=== PATIENT | male | born 1945 | race Caucasian/White ===

== ENCOUNTER → 2017-09-12 09:56 | Outpatient (CLI) | payer BC, SELFPAY ==
[2017-09-12 10:22] LABS: Absolute Basophil Count 0.09 k/cumm (0.0-0.2); Absolute Eosinophil Count 0.12 k/cumm (0.0-0.7); Absolute Lymphocyte Count 1.03 k/cumm (1.2-3.4); Absolute Monocyte Count 0.66 k/cumm (0.11-0.7); Absolute Neutrophil Count 2.59 k/cumm (1.2-6.7); Eosinophils % 2.7; HCT 40.8 % (40.0-50.0); HGB 12.7 g/dL (13.5-17.5); Lymphocytes % 22.9; Mean Corp. HGB Concentration 31.1 g/dL (32.0-36.0); Mean Corpuscular Hemoglobin 23.7 pg (27.0-33.0); Mean Corpuscular Volume 76.3 fL (80-95); Mean Platelet Volume 11.1 fL (8.0-11.0); Monocytes % 14.7; Neutrophils % 57.7; Platelet Count 230 x1000/uL (130-400); RBC 5.35 m/cumm (4.50-6.00); RBC Distribution Width 18.5 % (11.8-14.1); White Blood Cell Count 4.49 k/cumm (4.4-10.8)
[2017-09-12 10:23] LABS: Bilirubin Negative (Negative); Blood Negative (Negative); Clarity Clear; Glucose Negative (Negative); Ketones Negative (Negative); Leukocyte Esterase Negative (Negative); Nitrite Negative (Negative); Specific Gravity 1.015 (1.005-1.025); Urobilinogen 0.2 EU/dL (Up TO 0.2)
[2017-09-12 11:20] LABS: ALT 34 U/L (12-78); AST 24 U/L (15-37); Albumin 3.9 g/dL (3.4-5.0); Alkaline Phosphatase 113 U/L (46-116); Anion Gap 10.8 mmol/L (3-11); BUN 10 mg/dL (7-18); Bilirubin, Total 0.5 mg/dL (0.2-1.0); CO2 24.2 mmol/L (21.0-32.0); Calcium 9.6 mg/dL (8.5-10.1); Chloride 104 mmol/L (98-107); Glucose 113 mg/dL (70-100); Potassium 4.4 mmol/L (3.5-5.1); Sodium 139 mmol/L (136-145)
[2017-09-13 09:16] LABS: PSA, Screening 1.6 ng/ml (0-6.5)
== END ==
PROVIDERS: PCP Family Medicine; Visit Provider Family Medicine
DX: R10.30 Lower abdominal pain, unspecified (principal)
CPT/HCPCS: 36415; 80053; 84153; 81003; 85025

== ENCOUNTER → 2017-09-19 01:42 | Outpatient (CLI) | payer BC, SELFPAY ==
--- NOTE | 2017-09-19 08:51 | DI.RPTCT_ITS ---
SYMPTOM/DIAGNOSIS: LOWER ABD PAIN R10.30 CT ABDOMEN AND PELVIS: The study was carried out with intravenous injection of 100 cc Omnipaque 350 and oral ingestion of dilute Omnipaque. A small region of scarring is noted involving the left upper lobe. The lung bases are otherwise unremarkable. The liver and gallbladder are unremarkable. The pancreas is normal. The spleen is normal. The kidneys and adrenals are unremarkable. There is a sizable posterior upper body diverticulum of the stomach which was noted on a previous examination. A small axial hiatus hernia was identified. There is no evidence of obstruction. There is nothing specific to suggest an acute appendix. There are scattered diverticula involving the descending and sigmoid segments of the colon. There is nothing to suggest diverticulitis. The bladder is normal as visualized. The reproductive organs are intact. There are small bilateral fat containing inguinal hernias. Also a small fat containing umbilical hernia is identified. There is no evidence of free air or free fluid in the intraperitoneal space. There are atherosclerotic changes involving the aorta without evidence of an aneurysm. Degenerative changes involving the spine are identified. SUMMARY: When compared with previous images again noted is a small gastric diverticulum and small hiatus hernia. There is diverticulosis without evidence of diverticulitis and no evidence of an acute appendix.
[2017-09-19] MEDS: Breeza Beverage 473 ML BTL PO ×2 (09:00→09:01)
[2017-09-19] MEDS: Omnipaque 350 MG/ML 50 ML BTL PO (09:01)
[2017-09-19] MEDS: Omnipaque 350 MG/ML 100 ML BTL IJ (09:15)
== END ==
PROVIDERS: PCP Family Medicine; Visit Provider Family Medicine
DX: R10.30 Lower abdominal pain, unspecified (principal); K31.4 Gastric diverticulum; K44.9 Diaphragmatic hernia without obstruction or gangrene; K40.90 Unilateral inguinal hernia, without obstruction or gangrene, not specified as recurrent; K42.9 Umbilical hernia without obstruction or gangrene; K57.30 Diverticulosis of large intestine without perforation or abscess without bleeding
CPT/HCPCS: 74177; J3490; Q9967

== ENCOUNTER 2018-12-31 11:30 | Outpatient (CLI) | payer BC, SELFPAY ==
--- NOTE | 2018-12-31 11:21 | DI.RAD_ITS ---
EXAM: XR CHEST 2V PA LATERAL INDICATION: SHORT OF BREATH R06.02. COMPARISON: CHEST 2 VIEWS PA,LAT from 04/08/2017 TECHNIQUE: 2D digital imaging was performed. FINDINGS: The heart size is at the upper limits of normal. The aorta is tortuous. There is minimal linear sc arring at the left lung base. No infiltrate, effusion or pulmonary edema is seen. IMPRESSION: No acute abnormality.
[2018-12-31 11:35] LABS: Abs Immature Grans 0.01 k/cumm (0.0-0.09); Absolute Basophil Count 0.07 k/cumm (0.0-0.2); Absolute Eosinophil Count 0.13 k/cumm (0.0-0.7); Absolute Lymphocyte Count 0.76 k/cumm (1.2-3.4); Absolute Monocyte Count 0.66 k/cumm (0.11-0.7); Absolute Neutrophil Count 3.03 k/cumm (1.2-6.7); Basophils % 1.5; Eosinophils % 2.8; HCT 47.6 % (40.0-50.0); Immature Grans % 0.2; Lymphocytes % 16.3; Mean Corp. HGB Concentration 33.6 g/dL (32.0-36.0); Mean Corpuscular Hemoglobin 29.5 pg (27.0-33.0); Mean Corpuscular Volume 87.8 fL (80-95); Monocytes % 14.2; Platelet Count 215 x1000/uL (130-400); RBC 5.42 m/cumm (4.50-6.00); RBC Distribution Width 14.4 % (11.8-14.1); White Blood Cell Count 4.66 k/cumm (4.4-10.8)
[2018-12-31 12:37] LABS: ESR 5 mm/hr (1-20)
[2018-12-31 12:48] LABS: Iron 94 ug/dL (65-175); Total Iron Binding Capacity 423 ug/dL (250-450); Transferrin Sat 22 % (20-55)
[2018-12-31 12:57] LABS: ALT 44 U/L (16-63); AST 27 U/L (15-37); Alkaline Phosphatase 108 U/L (46-116); Anion Gap 10.9 mmol/L (3-11); BUN 18 mg/dL (7-18); Bilirubin, Total 0.7 mg/dL (0.2-1.0); CO2 24.1 mmol/L (21.0-32.0); CREATININE 0.91 mg/dL (0.70-1.30); Calcium 10.1 mg/dL (8.5-10.1); Chloride 104 mmol/L (98-107); Ferritin 30 ng/mL (26-388); Glucose 102 mg/dL (74-106); Potassium 4.3 mmol/L (3.5-5.1); Sodium 139 mmol/L (136-145); Total Protein 7.3 g/dL (6.4-8.2)
== END 2018-12-31 11:50 ==
PROVIDERS: PCP Family Medicine; Visit Provider Family Medicine
DX: R06.02 Shortness of breath (principal); E78.5 Hyperlipidemia, unspecified; K62.5 Hemorrhage of anus and rectum; J98.4 Other disorders of lung
CPT/HCPCS: 36415; 80053; 85652; 71046; 82728; 83540; 83550; 85025

== ENCOUNTER 2019-04-13 13:19 | Outpatient (CLI) | payer BC, SELFPAY ==
--- NOTE | 2019-04-13 12:30 | DI.RAD_ITS ---
EXAM: XR SHOULDER RT COMPLETE 2+V INDICATION: right shoulder pain and reduced function M25.511 PAIN RT SHOULDER. COMPARISON: No exams were available for comparison TECHNIQUE: 2D digital imaging was performed. FINDINGS: There is prominent spurring at the AC joint and undersurface of the acromion. There is also spurring at the glenoid, greater and lesser tuberosities. The humeral head appears superiorly positioned, co nsistent with a chronic rotator cuff tear. IMPRESSION: Degenerative changes and chronic rotator cuff tear. DATA REPOSITORY: RADIATION DOSE DELIVERED:
== END 2019-04-13 13:39 ==
PROVIDERS: PCP Family Medicine
DX: M25.511 Pain in right shoulder (principal); M25.811 Other specified joint disorders, right shoulder; M19.011 Primary osteoarthritis, right shoulder; M75.101 Unspecified rotator cuff tear or rupture of right shoulder, not specified as traumatic
CPT/HCPCS: 73030

== ENCOUNTER 2019-06-29 13:10 | Day surgery (SDC) | payer BC, SELFPAY ==
[2019-06-29 13:20] VITALS: BP 159/96; PULSE 84; RESP 18; TEMP 36.8; O2SAT 95
[2019-06-29] MEDS: Lactated Ringers 1,000 ML 80 ML IV (14:10)
[2019-06-29] MEDS: ceFAZolin 2 GM/50 ML BAG IVPB (14:40)
--- NOTE | 2019-06-29 16:21 | W.PM.OP ---
Date of service: 06/29/19 Time of Service: 16:21 Operative Note Operative Note DATE OF PROCEDURE: 06/29/19 PRE-OP DIAGNOSIS: incarcerated umbilical hernia POST-OP DIAGNOSIS: other and strangulated PROCEDURE: opeb repair w/ mesh and excision of omentum and sack. SURGEON: Fe Manning ANESTHESIA: MAC, local and spinal ESTIMATED BLOOD LOSS: 10 PATHOLOGY: none sent COMPLICATIONS: None Patient was transported to: same day Patient's condition: stable Implants: see RN notes Procedure Description: Pt presented to surgical clinic today adn was seen by Dr. Hdz. He has an acute incarcerated umbilical hernia and is here today for repair. Informed consent was obtained, explaining risks and benefits of the procedure including but not limited to bleeding, infection, pneumonia, blood clots, recurrence, chronic pain, chronic numbness, reaction to mesh necessitating removal, complications of anesthesia and other unforetold complications. DESCRIPTION OF PROCEDURE: The patient was brought to the operating suite and placed in supine position. Anesthesia was administered per the Department of Anesthesia. Patient prepped and draped in the usual sterile fashion using DuraPrep scrub solution. IV antibiotics were administered. Pause for the cause was done. A 2-inch incision was made in the interiorly to the umbilicus. Umbilicus was dissected off the fascia. The fascia was dissected off from surrounding tissue. There is omentum protruding through the sack. It appears to be necrotic. The sac is opened and the the omentum released. THe sac adn omentum are explored. There is no bowel. The sac and and infarcted omentum are excised using a ligasure. The omentum shows no bleeding and is healthy, and returned to the abdomen. The subcutaneous tissue is cleared from the fascial edges. A large ventrilux patch was then placed in the defect, the defect was closed, over sewn with 2-0 vicyrl and was copiously irrigated. Deep tissue was approximated with 3-0 Vicryl and skin was approximated with agapito, and a sterile dressings are applied. The patient tolerated the procedure well without complications and was transferred to recovery room in stable condition. FE MANNING,
[2019-06-29 16:25] VITALS: BP 133/73; PULSE 61; RESP 18; TEMP 36.1; O2SAT 94
--- NOTE | 2019-06-29 16:25 | W.PM.DSUDISC ---
Discharge Plan Disposition Patient Disposition: HOME Condition: Good Discharge Details Reason For Visit: incarcerated strangulated umbilical hernia Attending Provider: Fe Estrada Primary Care Provider: Parish Ferrer Home Meds and New Rx's Prescriptions: New cephalexin 500 mg tablet 500 mg PO BID 3 Days Qty: 6 RF: 0 hydrocodone-acetaminophen 5-325 mg tablet 1 tab PO Q4H PRNQty: 10 RF: 0 Continued atorvastatin 10 mg tablet 10 mg PO DAILY Qty: 90 RF: 3 esomeprazole magnesium [Nexium] 20 mg Capsule,Delayed Release(Dr/Ec) 1 mg PO DAILY RF: 0 Discontinued albuterol sulfate [Ventolin HFA] 90 mcg/actuation HFA aerosol inhaler 2 puff IH Q6H PRN (Reason: shortness of breath or wheezing) Qty: 8.5 RF: 1 aspirin [Ecotrin Low Strength] 81 MG tablet,delayed release (DR/EC) 81 mg PO DAILY RF: 0 omeprazole [Prilosec] 20 MG capsule,delayed release(DR/EC) 20 mg PO QAM RF: 0 No Action (DME) Aerochamber MV Spacer See Rx Instructions .ROUTE .MEDSUPPLY Qty: 1 RF: 0 Discharge Instructions Additional Instructions: HERNIA REPAIR ? POSTOPERATIVE INSTRUCTIONS Patients who have this type of surgery can usually be expected to return to work within two weeks and have minimal amounts of discomfort. ? ACTIVITY: The day of surgery should be spent resting. However, you can be up for short periods of time, I.E., going to the bathroom or kitchen. Avoid lifting or straining. On the day following surgery, you can be up and about as desired. ? LIFTING: Restrict your lifting to no more than five (5) pounds for two weeks. ? DIET: There are no dietary restrictions following surgery. However, you may want to start with small amounts of liquids to avoid nausea the day of surgery. ? INCISION CARE: After 24 hours you may shower. The dressing may be replaced for comfort, but is not necessary. An ice bag may be applied to the incision for 72 hours following surgery. ? SIGNS OF INFECTION: It will slowly disappear. If you have any increased redness, drainage, fever (above 100 degrees), please contact your doctor for an examination. ? DISCOMFORT: You may expect to have some mild discomfort at the incision sight. If severe pain develops you should contact your doctor for further instructions. ? URINATION: Patients who have surgery occasionally have problems urinating. If you experience problems and are not able to urinate within 6 hours following your surgery, please call your doctor immediately or go to your nearest Emergency Room for evaluation. ? DRIVING: NO driving for five (5) days after surgery ? MEDICATIONS: Alternate Tylenol 1000mg by mouth every 8hours and Ibuprofen 600mg every 6hours. Take the Tylenol and ibuprofen continuously for the first 72hrs- not just when you have pain. Use the tramadol for breakthrough pain. Use ice 20 minutes off/on continuously for the first 72hours. If you are taking narcotic pain medication, follow the instructions on the label and do not drive. Pain medications can make you very constipated. Make sure you are moving your bowels daily. If not, take Miralax, milk of magnesia or magnesium citrate. ? REPORT: Unusual swelling, severe pain, unresolved nausea, signs of infection, or difficulty in urination to your surgeon. Follow up in clinic with Dr. Estrada in 1-2 weeks [phone] Activity:: up walking today. no lifting over 5#'s x2 wks Remove Dressings/Wound Care:: 24 hours Shower/Bathe:: 24 hours Diet:: As Tolerated Discharge Orders Discharge Orders: Discharge Order (Routine); Ordered 06/29/19 Ordered By: Fe Estrada DS: Diagnosis Discharge Diagnosis (1) Strangulated umbilical hernia: Status: Acute (2) Incarcerated umbilical hernia: Status: Acute
--- NOTE | 2019-06-29 16:50 | W.PM.PROGNOT ---
Date of Service Date of service: 06/29/19 Time of Service: 16:51 Assessment and Plan Assessment and plan (1) Strangulated umbilical hernia: Status: Acute Assessment and plan: The patient is doing well post-op. There pain is well controlled. They are having no nausea or vomiting. The pt is not having any chest pain or SOB, productive cough; no calf pain or swelling. The pt is making good urine. The pt pain is adequately controlled. The case was discussed with nursing and pateints progress reviewed. pt wants to go home today HEENT: no janudice. no eye pain/drainage/redness/swelling. mild sore throat cardio- NSR no chest pain, BP stable. pulm: no sob or productive cough. no hemoptysis insicion- clean/dry. dressing intact no excessive bleeding or drainage I discussed with the patient and/or there family about the findings in surgery and the pt's progress. We reviewed expectations for progress in the hospital; what the pt could expect for recovery time. We discussed the importance of walking and pulmonary toilet to avoid blood clots and pneumonia. Continue current plans for pulmonary toilet, GI and DVT prophalxis. We shall continue the current plan for pain management as it is at an appropriate level and working well for the pt. Appropriate measures will be taken for constipation prevention as well, and this was also reviewed with the pt. wound care plan was reviewed with nursing as well. pt will be going home today and F/u next Saturday- see orders rx norco and keflex (2) Incarcerated umbilical hernia: Status: Acute Objective Objective Clinical Data: Vital Signs Temperature 36.1 C L 06/29/19 16:25 Pulse 61 06/29/19 16:25 Pulse Rhythm Regular 06/29/19 13:20 Respiratory Rate 18 06/29/19 16:25 Respiratory Depth Normal 06/29/19 13:20 Blood Pressure 133/73 06/29/19 16:25 Pulse Oximetry 94 L 06/29/19 16:25 Oxygen Delivery Method Room Air 06/29/19 16:25 Oxygen Flow Rate 0 06/29/19 13:20 Pain Level 2 06/29/19 16:25 Intake & Output 06/28/19 06/29/19 06/29/19 23:59 11:59 23:59 Intake Total 790 / 790 Balance 790 / 790 Weight 129.4 kg Intake: IV 550 / 550 Oral 240 / 240 Other: Emesis Description None
[2019-06-29 17:30] VITALS: BP 130/76; PULSE 64; RESP 18; TEMP 36.2; O2SAT 94
== END 2019-06-29 17:49 | disposition home or self-care (01) ==
PROVIDERS: PCP Family Medicine; Visit Provider Surgery
PROC: (CPT 49587; principal; 2019-06-29 14:00)
DX: K42.1 Umbilical hernia with gangrene (principal)
CPT/HCPCS: 49587; NC; C1781; J0131; J0690; J1100; J1885; J2001; J2405

== ENCOUNTER 2019-06-29 15:35 | Outpatient (REF) | payer BC, SELFPAY ==
[2019-06-30 17:51] LABS: COVID-19 RT-PCR Result NEGATIVE (Negative)
== END 2019-06-29 15:55 ==
LOC: LBN 15:35
PROVIDERS: PCP Family Medicine; Visit Provider Surgery
DX: Z01.818 Encounter for other preprocedural examination (principal); Z11.59 Encounter for screening for other viral diseases
CPT/HCPCS: U0003

== ENCOUNTER 2019-07-15 11:59 | Outpatient (CLI) | payer BC, SELFPAY ==
--- NOTE | 2019-07-15 11:15 | DI.RAD_ITS ---
EXAM: XR CHEST 2V PA LATERAL CLINICAL HISTORY: s/p hernia sx. wheezing and sob. recent penumoni, J40 BRONCHITIS TECHNIQUE: COMPARISON: CT ABD PELVIS WITH CONTRAST from 09/19/2017 CR XR CHEST 2V PA LATERAL from 12/31/2018 FINDINGS: Examination is compared with previous examination of 12/31/2018. There is new marked elevation of th e diaphragm on the right. Cardiac size appears within normal limits. There are apparent areas of at electasis at the right lung base. No pleural effusion seen. There is a rounded radiodensity project ed in the right hilum which may represent distorted vascular structure due to the marked volume loss of right lung. Mass not entirely excluded. CT of the chest may be considered for further evaluation . IMPRESSION: New marked right diaphragmatic elevation. Additional evaluation with chest CT should be considered.
== END 2019-07-15 12:19 ==
PROVIDERS: PCP Family Medicine; Visit Provider Surgery
DX: R06.2 Wheezing (principal); R06.02 Shortness of breath; J40 Bronchitis, not specified as acute or chronic; J98.11 Atelectasis; J98.6 Disorders of diaphragm
CPT/HCPCS: 71046

== ENCOUNTER 2019-07-16 10:48 | Emergency (ER) | payer BC, SELFPAY ==
[2019-07-16] VITALS (38 sets, daily range): BP systolic 127–166; BP diastolic 76–110; PULSE 74–139; RESP 13–34; TEMP 36.2; O2SAT 91–97
--- NOTE | 2019-07-16 10:53 | ED.GENADUL_ITS ---
Discharge Plan Disposition Patient Disposition: HOME Condition: Good Discharge Details Chief Complaint: Chest Pain Clinical Impression: Tachycardia, Cough, Atypical chest pain, Surgical site infection Primary Care Provider: Parish Ferrer ED Provider: Rena Beth Home Meds and New Rx's Prescriptions: New cephalexin [Keflex] 500 mg capsule 500 mg PO QID 7 Days Qty: 28 RF: 0 Continued aspirin 81 mg tablet,delayed release (DR/EC) 81 mg PO DAILY RF: 0 sennosides [senna] 8.6 mg tablet 8.6 mg PO BID Qty: 60 RF: 0 atorvastatin 10 mg tablet 10 mg PO DAILY Qty: 90 RF: 3 (DME) Aerochamber MV Spacer See Rx Instructions .ROUTE .MEDSUPPLY Qty: 1 RF: 0 esomeprazole magnesium [Nexium] 20 mg Capsule,Delayed Release(Dr/Ec) 1 mg PO DAILY RF: 0 Discharge Instructions Instructions: Chest Pain (ED), Cellulitis (ED), Acute Cough (ED) Additional Instructions: Drink plenty of fluids and get plenty of rest. Alternate tylenol and motrin as needed and directed for pain. Take the antibiotics until finished. You will be notified of your COVID-19 testing result once available. Call your primary care doctor's office today to schedule a follow-up appointment within the next week. You have been scheduled for a follow-up appointment at the surgery office on July 21 at 2 PM. Return to the emergency department with any worsening or new concerning sympt oms. Stand Alone Forms: PENDING COVID-19 TESTING Discharge Data Discharge Date/Time-TO BE ENTERED AT DEPARTURE: 07/16/19 15:40 Discharge Physician: Rena Beth Medical Decision Making 1050 -- 74-year-old male with a history of hypertension, hyperlipidemia, alcohol abuse who is 2 weeks status post incarcerated umbilical hernia repair presents for chest tightness, cough and wheezing since yesterday. Heart rate 130s at surgery office for follow-up today. Outpatient chest x-ray noted right elevated hemidiaphragm yesterday and recommended CT chest. He had a negative COVID test just prior to surgery 2 weeks ago. Heart rate 130s on arrival. EKG noted a rate of 136, sinus tach, right bundle branch block, no other acute ischemic change compared to previous EKG. Patient appears nontoxic. Speaking in full sentences. He has diminished breath sounds right mid to lower lung johnson but no obvious wheezing, rales or rhonchi. Afebrile. Oxygen saturation mid 90s on room air. No abdominal tenderness. Incision site indurated with minimal erythema but nontender. Differential diagnosis includes PE, pneumonia, paralysis of diaphragm causing hypoventilation, ACS, dehydration. Will check screening labs, CT chest, lactate and blood cultures and place on 1 L nasal cannula. 1310 -- labs and imaging reviewed. Normal white blood cell count and lactate. Slight elevation in liver enzymes likely consistent with daily alcohol abuse. Lipase normal. Alcohol level 4. CT chest negative for any acute process. Case discussed with surgery who would like CT abdomen and pelvis to assess for abscess. Patient reassessed -rate remains 120s to 130s. He denies any acute complaints. Unclear if there is an underlying arrhythmia such as atrial flutter. Repeat EKG noted a heart rate 132, sinus tach with no acute ischemic change. 1500 --CT abdomen and pelvis notes and intra-abdominal wall fluid collection but no other acute findings. Surgery evaluated patient at bedside and would like Keflex for possible mild incision site cellulitis. Heart rate decreased to 70s. Repeat troponin negative. Repeat EKG with a rate of 81 and no other acute change. Oxygen saturation high 90s on room air. Patient reassessed - Patient states he wants to leave as soon as possible as he feels much better and would rather be home. He denies any chest pain. Discussed with patient that as he has been developing a cough with chest tightness and subjective wheezing, he may be developing a viral illness but as there was no wheezing noted on exam, do not see an indication for steroids and he is agreeable. He was advised to follow-up with his primary care doctor within the next week for reevaluation. Surgery will follow up with him in the office on July 21 at 2 PM and have requested Keflex for mild surgical site infection. Usual and customary return precautions given prior to discharge. Medical Records Medical records reviewed: Yes I reviewed the patient's medical records. Imaging Data Radiologic Study: Radiologist's impression: CT CHEST PE CTA CLINICAL HISTORY: Chest pain recent surgery TECHNIQUE: COMPARISON: CT ABD PELVIS WITH CONTRAST from 09/19/2017 FINDINGS: CT examination was performed with bolus infusion of 88 cc of Omnipaque 350. There is no evidence of pulmonary embolic disease. Thoracic aorta and major branches are unremarkable with no evidence thoracic aortic aneurysm or dissection. Note is made of coronary artery calcification. There is marked elevation of the diaphragm on the right, there is apparent compression atelectasis secondary to the diaphragmatic elevation in right lower lobe. No gross pulmonary mass or consolidation seen. Lungs otherwise are clear. Tracheobronchial tree appears intact. No mediastinal or hilar mass or adenopathy. No supraclavicular or axillary adenopathy. Images obtained through the upper abdomen show grossly unremarkable appearance of visualized portions of liver, spleen, right adrenal and right kidney. Visualized pancreas appears intact. IMPRESSION: Right diaphragmatic elevation, unexplained, with secondary compression atelectasis of right lower pulmonary lobe. No other significant findings. CT ABDOMEN AND PELVIS W CLINICAL HISTORY: R HEMIELEVATED DIAPHRAGM, R/O ABDOMINAL ABSCESS TECHNIQUE: CT examination of the abdomen and pelvis was performed with a bolus infusion of 100 cc of Omnipaque 350 and ingestion of dilute barium. COMPARISON: CT CT CHEST PE CTA from 07/16/2019 FINDINGS: Please also see today's chest CT. There is mild hepatic steatosis. Diaphragmatic elevation again noted on the right, unexplained. Spleen and pancreas are unremarkable in appearance. Adrenals and kidneys appear normal. No urinary tract calcification or obstruction. Abdominal aorta is of normal diameter and major visceral vessels appear intact. No abdominal or pelvic adenopathy. Urinary bladder is unremarkable. No evidence of appendicitis, diverticulitis, or bowel obstruction. Hiatal hernia again noted. Gallbladder and bile ducts are CT normal. The patient has reportedly had recent abdominal wall hernia repair. There is nonspecific fluid collection at the presumed hernia repair site just to the left of midline at the umbilical level measuring about 5 x 2.6 cm in diameter transaxially. This is consistent with postsurgical hematoma or seroma, please correlate clinically. Infectious process not excluded on the basis of this examination. No other fluid collection identified in the abdominal wall or in the peritoneal cavity or retroperitoneum. IMPRESSION: Anterior abdominal wall subcutaneous fluid collection at the level of the umbilicus, presumably postsurgical; no other significant intraabdominal abnormality seen. Lab Data Lab results reviewed: Yes I reviewed the patient's lab results. Labs: 07/16/19 12:00 Blood Blood Culture - Pending 07/16/19 11:30 Blood Blood Culture - Pending Laboratory Tests Range/Units 07/16/19 07/16/19 07/16/19 11:00 11:00 11:00 WBC (4.4-10.8) k/cumm 5.76 RBC (4.50-6.00) m/cumm 5.83 Hgb (13.5-17.5) g/dL 18.3 H Hct (40.0-50.0) % 53.2 H MCV (80-95) fL 91.3 MCH (27.0-33.0) pg 31.4 MCHC (32.0-36.0) g/dL 34.4 RDW (11.8-14.1) % 13.0 Plt Count (130-400) x1000/uL 221 MPV (8.0-11.0) fL 11.4 H Immature Gran % % 0.3 Neutrophils % 64.0 Lymphocytes % 18.2 Monocytes % 14.2 Eosinophils % 2.1 Basophils % 1.2 Absolute Neutrophils (1.2-6.7) k/cumm 3.68 Absolute Lymphocytes (1.2-3.4) k/cumm 1.05 L Absolute Monocytes (0.11-0.7) k/cumm 0.82 H Absolute Eosinophils (0.0-0.7) k/cumm 0.12 Absolute Basophils (0.0-0.2) k/cumm 0.07 Sodium (136-145) mmol/L 137 Potassium (3.5-5.1) mmol/L 4.2 Chloride (98-107) mmol/L 101 Carbon Dioxide (21.0-32.0) mmol/L 28.8 Anion Gap (3-11) mmol/L 7.2 BUN (7-18) mg/dL 14 Creatinine (0.70-1.30) mg/dL 1.05 Estimated GFR/1.73 m2 (mL/min/1.73m2) >= 60.00 Glucose (74-106) mg/dL 119 H Lactate (0.6-1.4) mmol/L Calcium (8.5-10.1) mg/dL 10.6 H Magnesium (1.8-2.4) mg/dL 1.9 Total Bilirubin (0.2-1.0) mg/dL 1.0 AST (15-37) U/L 49 H ALT (16-63) U/L 75 H Alkaline Phosphatase (46-116) U/L 124 H Troponin I (<0.06) ng/mL < 0.05 NT-Pro-B Natriuret Pep (<300) pg/mL 39 Total Protein (6.4-8.2) g/dL 8.3 H Albumin (3.4-5.0) g/dL 4.4 Lipase (73-393) U/L 130 Ethyl Alcohol (<3) mg/dL Range/Units 07/16/19 07/16/19 07/16/19 11:00 11:25 14:55 WBC (4.4-10.8) k/cumm RBC (4.50-6.00) m/cumm Hgb (13.5-17.5) g/dL Hct (40.0-50.0) % MCV (80-95) fL MCH (27.0-33.0) pg MCHC (32.0-36.0) g/dL RDW (11.8-14.1) % Plt Count (130-400) x1000/uL MPV (8.0-11.0) fL Immature Gran % % Neutrophils % Lymphocytes % Monocytes % Eosinophils % Basophils % Absolute Neutrophils (1.2-6.7) k/cumm Absolute Lymphocytes (1.2-3.4) k/cumm Absolute Monocytes (0.11-0.7) k/cumm Absolute Eosinophils (0.0-0.7) k/cumm Absolute Basophils (0.0-0.2) k/cumm Sodium (136-145) mmol/L Potassium (3.5-5.1) mmol/L Chloride (98-107) mmol/L Carbon Dioxide (21.0-32.0) mmol/L Anion Gap (3-11) mmol/L BUN (7-18) mg/dL Creatinine (0.70-1.30) mg/dL Estimated GFR/1.73 m2 (mL/min/1.73m2) Glucose (74-106) mg/dL Lactate (0.6-1.4) mmol/L 1.1 Calcium (8.5-10.1) mg/dL Magnesium (1.8-2.4) mg/dL Total Bilirubin (0.2-1.0) mg/dL AST (15-37) U/L ALT (16-63) U/L Alkaline Phosphatase (46-116) U/L Troponin I (<0.06) ng/mL < 0.05 NT-Pro-B Natriuret Pep (<300) pg/mL Total Protein (6.4-8.2) g/dL Albumin (3.4-5.0) g/dL Lipase (73-393) U/L Ethyl Alcohol (<3) mg/dL 4.0 ECG Data Attestation: I personally reviewed and interpreted this ECG (s) as follows: Interpretation: #1 -- Rate of 136, sinus, right bundle branch block. No acute ST elevation or depression. QTc 545. QRS 168. #2 -- Rate of 132, sinus, right bundle branch block. No acute ST elevation or depression. QTc 542. QRS 166. #3 -- Rate of 81, sinus, right bundle branch block. No acute ST elevation or depression. CT 180. QTc 467. QRS 167. HPI General Mode of arrival: wheelchair . Date/Time Provider Initiated Documentation: 07/16/19 10:48 . Limitations to Documentation: no limitations . Information obtained by: patient . HPI Narrative: Patient is a 74-year-old male with a history of hypertension, hyperlipidemia, GERD, daily alcohol abuse who is 2 weeks status post incarcerated umbilical hernia repair here who presents for chest tightness, dry cough and wheezing since yesterday. Discussed the symptoms at the surgery office yesterday on follow-up and they obtained a chest x-ray which noted a right elevated hemidiaphragm with recommendations for CT chest. Patient was seen at the surgery office today again and noted to have heart rate 130s and complained of chest tightness and was referred to the ER for further evaluation. He denies any fever, change in appetite, vomiting, diarrhea, abdominal pain. He states the chest tightness is minimal and currently 2/10. He states he feels that when he takes a deep breath it triggers a cough and wheezing but otherwise states the cough is minimal and does not have significant shortness of breath. He states he drinks liquor daily and that he had 6 ounces of gin last night. Denies any recent travel or new leg pain or swelling. Related Data Home Medications Medication Instructions Recorded Confirmed atorvastatin 10 mg tablet 10 mg PO DAILY #90 tab 10/22/18 07/16/19 inhalational spacing device #1 each 06/16/19 07/16/19 esomeprazole magnesium [Nexium] 1 mg PO DAILY 06/29/19 07/16/19 aspirin 81 mg tablet,delayed 81 mg PO DAILY 07/08/19 07/16/19 release sennosides 8.6 mg tablet 8.6 mg PO BID #60 tab 07/08/19 07/16/19 cephalexin [Keflex] 500 mg PO QID 7 Days #28 cap 07/16/19 Previous Rx's Medication Instructions Recorded atorvastatin 10 mg tablet 10 mg PO DAILY #90 tab 10/22/18 inhalational spacing device #1 each 06/16/19 sennosides 8.6 mg tablet 8.6 mg PO BID #60 tab 07/08/19 cephalexin [Keflex] 500 mg PO QID 7 Days #28 cap 07/16/19 Allergies Allergy/AdvReac Type Severity Reaction Status Date / Time No Known Allergies Allergy Verified 07/16/19 10:19 Review of Systems All systems reviewed & are unremarkable except as noted in HPI and below Constitutional Constitutional: Reports as per HPI, Denies chills and Denies fever(s) Eyes Eyes: Denies blurry vision ENT Ears, Nose, Mouth, and Throat: Denies dizziness, Denies sore throat and Denies throat swelling Cardiovascular Cardiovascular: Reports chest pain and Reports dyspnea Respiratory Respiratory: Reports cough and Reports dyspnea Gastrointestinal Gastrointestinal: Denies abdominal pain, Denies diarrhea and Denies vomiting Genitourinary Genitourinary: Denies hematuria and Denies dysuria Musculoskeletal Musculoskeletal: Denies back pain and Denies numbness Integumentary/Breasts Skin/Breast: Denies lesions and Denies rash Neurologic Neurologic: Denies dizziness, Denies localized weakness and Denies numbness Allergic/Immunologic Allergic/Immunologic: Denies throat swelling [facility] Medical History (Updated 07/16/19 @ 15:18 by Rena Beth DO) Abnormal finding of diagnostic imaging (Acute) Bronchitis (Acute) pt treated for this w/ abx in june. no imagining done. Elevated diaphragm (Acute) Right shoulder pain (Acute) Strangulated umbilical hernia (Acute) Wheeze (Acute) Surgical History Colonoscopy - [facility] 10/31/10;DR. ARJUN LYNN; MIXED TUBULAR AND SESSILE SERRATED ADENOMA Hemorrhoidectomy Replacement of total knee joint RIGHT Social History Smoking/Tobacco Use Status: Never Alcohol Intake: current Alcohol Intake frequency: 3 or more drinks per day Alcohol type: hard liquor Drug use: Never Substance use type: does not use Current gender identity: male Do you feel safe at home: Yes Do you feel safe in your relationship?: Yes Exam Const General: cooperative and no acute distress Orientation: alert, awake and oriented x3 HENMT Head: normal to inspection Face and sinus: normal facial exam Eyes General: appearance normal, both eyes and all related structures EOM: EOM intact bilaterally Neck Neck: normal visual inspection and No submandibular swelling Lymphatic: no lymphadenopathy noted Chest Chest: normal inspection of the chest and no tenderness Resp Effort & Inspection: normal respiratory effort and able to speak in complete sentences Auscultation: diminished lung sounds on the right in the lower lung johnson, no rhonchi and no wheezes Cardio Rate: regular rate Rhythm: regular rhythm GI Inspection: normal to inspection and incision (inferior to umbilicus. Indurated L side. No erythema, drainage, fluctuance) Palpation: soft, not firm, not rigid and nontender Auscultation: normal bowel sounds Skin General skin exam: no rashes or lesions noted Neuro General: patient alert, patient awake and patient oriented x3 Cognition: normal cognition Speech: speech normal Motor: muscle tone normal throughout Sensory Exam: no sensory deficits noted Extrem General: normal to inspection, full ROM, capillary refill normal, no calf tenderness bilaterally and no edema Psych Appearance: grossly normal Mental Status: mental status grossly normal Speech and Movement: speech and movement normal Affect: normal affect
[2019-07-16] MEDS: Normal Saline 1,000 ML 500 ML IV (11:15)
[2019-07-16 11:27] LABS: Abs Immature Grans 0.02 k/cumm (0.0-0.09); Absolute Basophil Count 0.07 k/cumm (0.0-0.2); Absolute Eosinophil Count 0.12 k/cumm (0.0-0.7); Absolute Lymphocyte Count 1.05 k/cumm (1.2-3.4); Absolute Monocyte Count 0.82 k/cumm (0.11-0.7); Absolute Neutrophil Count 3.68 k/cumm (1.2-6.7); Basophils % 1.2; Eosinophils % 2.1; HCT 53.2 % (40.0-50.0); HGB 18.3 g/dL (13.5-17.5); Immature Grans % 0.3 %; Lymphocytes % 18.2; Mean Corp. HGB Concentration 34.4 g/dL (32.0-36.0); Mean Corpuscular Hemoglobin 31.4 pg (27.0-33.0); Mean Corpuscular Volume 91.3 fL (80-95); Mean Platelet Volume 11.4 fL (8.0-11.0); Monocytes % 14.2; Platelet Count 221 x1000/uL (130-400); RBC 5.83 m/cumm (4.50-6.00); White Blood Cell Count 5.76 k/cumm (4.4-10.8)
[2019-07-16 11:32] LABS: Lactate 1.1 mmol/L (0.6-1.4)
[2019-07-16] MEDS: Normal Saline Flush 10 ML SYR IVP (11:45)
[2019-07-16 11:46] LABS: ALT 75 U/L (16-63); AST 49 U/L (15-37); Albumin 4.4 g/dL (3.4-5.0); Alkaline Phosphatase 124 U/L (46-116); Anion Gap 7.2 mmol/L (3-11); BUN 14 mg/dL (7-18); CO2 28.8 mmol/L (21.0-32.0); CREATININE 1.05 mg/dL (0.70-1.30); Calcium 10.6 mg/dL (8.5-10.1); Chloride 101 mmol/L (98-107); Glucose 119 mg/dL (74-106); Lipase 130 U/L (73-393); Magnesium 1.9 mg/dL (1.8-2.4); Potassium 4.2 mmol/L (3.5-5.1); Sodium 137 mmol/L (136-145); Total Protein 8.3 g/dL (6.4-8.2)
[2019-07-16 11:47] LABS: Troponin I < 0.05 ng/mL (<0.06)
[2019-07-16 11:52] LABS: NT-proBNP 39 pg/mL (<300)
[2019-07-16] MEDS: Normal Saline - Diluent 50 ML VIAL IV (12:13)
[2019-07-16] MEDS: Omnipaque 350 MG/ML 100 ML BTL 88 ML IJ (12:14)
--- NOTE | 2019-07-16 12:30 | DI.CT_ITS ---
EXAM: CT CHEST PE CTA CLINICAL HISTORY: Chest pain recent surgery TECHNIQUE: COMPARISON: CT ABD PELVIS WITH CONTRAST from 09/19/2017 FINDINGS: CT examination was performed with bolus infusion of 88 cc of Omnipaque 350. There is no evidence of pulmonary embolic disease. Thoracic aorta and major branches are unremarkabl e with no evidence thoracic aortic aneurysm or dissection. Note is made of coronary artery calcification. There is marked elevation of the diaphragm on the right, there is apparent compression atelectasis se condary to the diaphragmatic elevation in right lower lobe. No gross pulmonary mass or consolidation seen. Lungs otherwise are clear. Tracheobronchial tree appears intact. No mediastinal or hilar ma ss or adenopathy. No supraclavicular or axillary adenopathy. Images obtained through the upper abdomen show grossly unremarkable appearance of visualized portions of liver, spleen, right adrenal and right kidney. Visualized pancreas appears intact. IMPRESSION: Right diaphragmatic elevation, unexplained, with secondary compression atelectasis of right lower pul monary lobe. No other significant findings.
--- NOTE | 2019-07-16 13:00 | DI.CT_ITS ---
EXAM: CT ABDOMEN AND PELVIS W CLINICAL HISTORY: R HEMIELEVATED DIAPHRAGM, R/O ABDOMINAL ABSCESS TECHNIQUE: CT examination of the abdomen and pelvis was performed with a bolus infusion of 100 cc of Omnipaque 350 and ingestion of dilute barium. COMPARISON: CT CT CHEST PE CTA from 07/16/2019 FINDINGS: Please also see today's chest CT. There is mild hepatic steatosis. Diaphragmatic elevation again noted on the right, unexplained. Spleen and pancreas are unremarkable in appearance. Adrenals and kidneys appear normal. No urinary tract calcification or obstruction. Abdominal aorta is of normal diameter and major visceral vessels appear intact. No abdominal or pelv ic adenopathy. Urinary bladder is unremarkable. No evidence of appendicitis, diverticulitis, or bowel obstruction. Hiatal hernia again noted. Gallbladder and bile ducts are CT normal. The patient has reportedly had recent abdominal wall hernia repair. There is nonspecific fluid colle ction at the presumed hernia repair site just to the left of midline at the umbilical level measuring about 5 x 2.6 cm in diameter transaxially. This is consistent with postsurgical hematoma or seroma, please correlate clinically. Infectious process not excluded on the basis of this examination. No other fluid collection identified in the abdominal wall or in the peritoneal cavity or retroperito neum. IMPRESSION: Anterior abdominal wall subcutaneous fluid collection at the level of the umbilicus, presumably posts urgical; no other significant intraabdominal abnormality seen.
[2019-07-16] MEDS: Breeza Beverage 473 ML BTL PO ×2 (13:17→13:18)
[2019-07-16] MEDS: Omnipaque 350 MG/ML 50 ML BTL PO (13:18)
[2019-07-16] MEDS: Normal Saline 500 ML IV (13:35)
[2019-07-16 15:24] LABS: Troponin I < 0.05 ng/mL (<0.06)
--- NOTE | 2019-07-16 17:14 | SCONE_ITS ---
Date of service: 07/16/19 Time of Service: 17:14 Assessment and Plan Assessment and plan (1) Tachycardia: Status: Acute (2) Elevated diaphragm: Status: Acute (3) Abnormal finding of diagnostic imaging: Status: Acute (4) Bronchitis: Status: Acute (5) Incarcerated umbilical hernia: Status: Acute Assessment and plan: s/p incarcerated umbilical hernia repair. Presented to office today for staple removal and found to be in sinus tach for no reason. Ct's ere nl today. no PE no pneumonia. postOp changes noted on CT. The skin is just the tiniest bit red. I am going to put him on a wks worth of keflex. The tachycardia resolved w/ some fluids. I do not have an explanation for the tachycardia. I will have him f/u next we dnday in clinic, provided his next set of tropnins are nl. further rec per ED. History of Present Illness Narrative: Patient was seen in the clinic office this morning because he found a retained staple and was urged to have it taken out he was there he was noted to be very clammy. He had a mildly elevated BP but he did have a racing heart rate and was tachycardic. His sent to the emergency room for evaluation and an EKG performed which did show a heart rate in the 130s. He had been doing a lot of painting this morning. He had had a previous episode bronchitis versus allergic asthma in the spring and had been on antibiotics prior to his surgery he did have a lot of issues with wheezing and cough. Yesterday on 6 3 he was describing some of those symptoms again. So I did do a chest x-ray. This showed a extremely elevated right hemidiaphragm. I did want to get a CT of the chest abdomen pelvis on him. Insurance company would only pay for a CT of the chest. This was not completed yesterday, as we are waiting insurance approval. CT of the chest and pelvis was done today. There is no PE. There is some postsurgical changes and fluid collection that is side of the umbilical hernia repair. He did have mesh placed. Otherwise CT is unremarked couple except only for retained stool. I did see and evaluate the patient done in the emergency department. He denies any chest pain or shortness of breath. At the time I saw him and his vitals were stable his O2 saturation was in the high 90s. He is not running a temperature. Heart rate was in the 80s after receiving 2 L of fluid. He denies any chest pain and shortness of breath or any cough. He denies any abdominal pain. Says bowels are working normally. Constipated side. He is not noticed any blood. His incision today is clean dry and intact and well-healed it is firm as would be one would expect in the normal postoperative.. There is maybe a very slightest amount of erythema. He has no lower extremity pain or edema. She denies any urinary symptoms. He has no thrush. He has no other open wounds or sores. He has no thrombosis or infection from IV sites. He is not currently on any medications other than Nexium and atorvastatin, and he has been on these for a long period time. I did evaluate him from a surgical standpoint today and find no signs of any acute infections or any causes for the tachycardia or for his elevated hemidiaphragm I did review the CT with radiology and they did not find any evidence of PE. Clinically is no signs of DVT. Dr. Beth did evaluate him from a cardiac standpoint. I cannot account for why his diaphragm is so elevated. Consults Consult date: 07/16/19 Review of Systems All systems reviewed & are unremarkable except as noted in HPI and below PFSH Medical History (Updated 07/16/19 @ 15:18 by Rena Beth DO) Abnormal finding of diagnostic imaging (Acute) Bronchitis (Acute) pt treated for this w/ abx in june. no imagining done. Elevated diaphragm (Acute) Right shoulder pain (Acute) Strangulated umbilical hernia (Acute) Wheeze (Acute) Surgical History Colonoscopy - MAC 10/31/10;DR. ARJUN LYNN; MIXED TUBULAR AND SESSILE SERRATED ADENOMA Hemorrhoidectomy Replacement of total knee joint RIGHT Social History Smoking/Tobacco Use Status: Never Alcohol Intake: current Alcohol Intake frequency: 3 or more drinks per day Alcohol type: hard liquor Drug use: Never Substance use type: does not use Current gender identity: male Do you feel safe at home: Yes Do you feel safe in your relationship?: Yes Exam HENID Head: normal to inspection Ears: hearing grossly normal bilaterally General nose exam: external nose normal Mouth: oral mucosae normal Teeth and gingiva: fair dentition Eyes Eyelids: eyelids normal Sclera: sclerae normal Pupils: PERRL Chest Chest: normal inspection of the chest and no tenderness Resp Effort & Inspection: normal respiratory effort and able to speak in complete sentences Auscultation: clear to auscultation bilaterally, no rales, no rhonchi and no wheezes Cardio Rate: regular rate Rhythm: regular rhythm and other (at the time I am seeing him. ) Other: When he came into the ED his EKG showed sinus tachycardia. This resolved spont after 2L of fluid. GI Inspection: normal to inspection, incision (c/d/i ) and obesity Palpation: soft Other: normal postOp appearance. min pain. Extrem General: no clubbing, cyanosis or edema Results Last Vital Signs Temp 36.2 C L 07/16/19 15:41 Pulse 78 07/16/19 15:41 Resp 23 07/16/19 15:41 BP 127/76 07/16/19 15:41 Pulse Ox 96 07/16/19 15:41 Labs Result diagrams: 07/16/19 11:00 07/16/19 11:00 Labs: Laboratory Results - last 24 hr 07/16/19 07/16/19 07/16/19 11:00 11:00 11:00 WBC 5.76 RBC 5.83 Hgb 18.3 H Hct 53.2 H MCV 91.3 MCH 31.4 MCHC 34.4 RDW 13.0 Plt Count 221 MPV 11.4 H Immature Gran % 0.3 Neutrophils % 64.0 Lymphocytes % 18.2 Monocytes % 14.2 Eosinophils % 2.1 Basophils % 1.2 Absolute Neutrophils 3.68 Absolute Lymphocytes 1.05 L Absolute Monocytes 0.82 H Absolute Eosinophils 0.12 Absolute Basophils 0.07 Sodium 137 Potassium 4.2 Chloride 101 Carbon Dioxide 28.8 Anion Gap 7.2 BUN 14 Creatinine 1.05 Estimated GFR/1.73 m2 >= 60.00 Glucose 119 H Lactate Calcium 10.6 H Magnesium 1.9 Total Bilirubin 1.0 AST 49 H ALT 75 H Alkaline Phosphatase 124 H Troponin I < 0.05 NT-Pro-B Natriuret Pep 39 Total Protein 8.3 H Albumin 4.4 Lipase 130 Ethyl Alcohol 07/16/19 07/16/19 07/16/19 11:00 11:25 14:55 WBC RBC Hgb Hct MCV MCH MCHC RDW Plt Count MPV Immature Gran % Neutrophils % Lymphocytes % Monocytes % Eosinophils % Basophils % Absolute Neutrophils Absolute Lymphocytes Absolute Monocytes Absolute Eosinophils Absolute Basophils Sodium Potassium Chloride Carbon Dioxide Anion Gap BUN Creatinine Estimated GFR/1.73 m2 Glucose Lactate 1.1 Calcium Magnesium Total Bilirubin AST ALT Alkaline Phosphatase Troponin I < 0.05 NT-Pro-B Natriuret Pep Total Protein Albumin Lipase Ethyl Alcohol 4.0
[2019-07-17 00:20] LABS: COVID-19 RT-PCR UVMMC Result Negative (Negative)
== END 2019-07-16 15:40 | disposition home or self-care (01) ==
PROVIDERS: Registered Nurse Emergency; Emergency Provider Physician Assistant; PCP Family Medicine
DX: R07.89 Other chest pain (principal); R00.0 Tachycardia, unspecified; R05 Cough; T81.41XA Infection following a procedure, superficial incisional surgical site, initial encounter; Y83.8 Other surgical procedures as the cause of abnormal reaction of the patient, or of later complication, without mention of misadventure at the time of the procedure; F10.10 Alcohol abuse, uncomplicated; I10 Essential (primary) hypertension
CPT/HCPCS: 36415; 71275; 80053; 83690; 87040; 93005; 96360; 96361; 99252; 99285; U0003; 74177; 80320; 83605; 83735; 83880; 84484; 85025; 93010; J3490; Q9967

== ENCOUNTER 2019-07-21 03:39 | Outpatient (CLI) | payer BC, SELFPAY ==
[2019-07-21 12:33] LABS: Abs Immature Grans 0.01 k/cumm (0.0-0.09); Absolute Basophil Count 0.06 k/cumm (0.0-0.2); Absolute Eosinophil Count 0.17 k/cumm (0.0-0.7); Absolute Lymphocyte Count 1.05 k/cumm (1.2-3.4); Absolute Monocyte Count 0.81 k/cumm (0.11-0.7); Eosinophils % 2.7; HCT 53.1 % (40.0-50.0); Immature Grans % 0.2 %; Lymphocytes % 16.9; Mean Corp. HGB Concentration 33.9 g/dL (32.0-36.0); Mean Corpuscular Hemoglobin 31.1 pg (27.0-33.0); Mean Corpuscular Volume 91.9 fL (80-95); Mean Platelet Volume 11.1 fL (8.0-11.0); Monocytes % 13.1; Neutrophils % 66.1; Platelet Count 229 x1000/uL (130-400); RBC 5.78 m/cumm (4.50-6.00); RBC Distribution Width 13.2 % (11.8-14.1)
[2019-07-21 13:18] LABS: ALT 67 U/L (16-63); AST 36 U/L (15-37); Albumin 4.3 g/dL (3.4-5.0); Alkaline Phosphatase 117 U/L (46-116); Anion Gap 9.9 mmol/L (3-11); BUN 17 mg/dL (7-18); Bilirubin, Total 0.7 mg/dL (0.2-1.0); CO2 28.1 mmol/L (21.0-32.0); CREATININE 1.18 mg/dL (0.70-1.30); Calcium 10.6 mg/dL (8.5-10.1); Chloride 105 mmol/L (98-107); Glucose 114 mg/dL (74-106); Potassium 4.3 mmol/L (3.5-5.1); Sodium 143 mmol/L (136-145); Total Protein 7.8 g/dL (6.4-8.2)
== END 2019-07-21 03:59 ==
PROVIDERS: PCP Family Medicine; Visit Provider Family Medicine
DX: R06.09 Other forms of dyspnea (principal)
CPT/HCPCS: 36415; 80053; 85025

== ENCOUNTER 2019-07-22 14:41 | Observation (INO) | payer BC, SELFPAY ==
[2019-07-22] VITALS (78 sets, daily range): BP systolic 111–184; BP diastolic 54–149; PULSE 61–122; RESP 13–30; TEMP 36.4–36.7; O2SAT 89–95
[2019-07-22 15:16] LABS: Absolute Basophil Count 0.05 k/cumm (0.0-0.2); Absolute Eosinophil Count 0.14 k/cumm (0.0-0.7); Absolute Lymphocyte Count 1.03 k/cumm (1.2-3.4); Absolute Monocyte Count 0.82 k/cumm (0.11-0.7); Absolute Neutrophil Count 3.62 k/cumm (1.2-6.7); Basophils % 0.9; Eosinophils % 2.5; HCT 51.3 % (40.0-50.0); HGB 17.5 g/dL (13.5-17.5); Lymphocytes % 18.2; Mean Corp. HGB Concentration 34.1 g/dL (32.0-36.0); Mean Corpuscular Hemoglobin 31.2 pg (27.0-33.0); Mean Corpuscular Volume 91.4 fL (80-95); Mean Platelet Volume 11.1 fL (8.0-11.0); Monocytes % 14.5; Neutrophils % 63.9; Platelet Count 213 x1000/uL (130-400); RBC 5.61 m/cumm (4.50-6.00); White Blood Cell Count 5.66 k/cumm (4.4-10.8)
--- NOTE | 2019-07-22 15:20 | ED.GENADUL_ITS ---
Discharge Plan Disposition Patient Disposition: [facility] INPATIENT Condition: Stable Discharge Details Chief Complaint: Chest Pain Clinical Impression: Chest pain Admit Date/Time: 07/22/19 18:38 Admit Provider: Saturnino Haskins Attending Provider: Saturnino Haskins Primary Care Provider: Parish Ferrer ED Provider: Rena Beth Hospital Course Hospital Course: Mr Swartz is a 74 year old male with PMHx of recent umbilical hernia repair, chronic cough, hiatal hernia (never having had surgery for this), alcohol abuse, obesith with BMI of 38.7, who was observed on [facility] hospitalist service in the ICU pending bed availability on [facility] cardiology service, having been preaccepted there for ischemic evaluation of unstable angina. The patient has been having chest tightness with activity and with rest, which was somewhat relieved with nitroglycerin in the ED and was described as elephant sitting on my chest when he was seen by Dr Estrada in the office earlier that day. He has had negative serial troponins. He had a negative CTA of the chest 1 week prior having presented to the ED with chest discomfort at that time as well. He was supposed to originally have a stress test as outpatient next week, but as his chest pain was felt to be possibly due to unstable angina, he was admitted to [facility] ICU on heparin/nitroglycerin drips and is now felt to be too high risk to have a stress test at our facility, likely requiring a cardiac catheterization. He was also s tarted on asa and plavix. The patient does have a relatively newly diagnosed R hemidiaphragmatic paralysis (first seen on CT 07/16/2019), for which he has yet to be evaluated by pulmonology. This persists on CXR from this visit. He is on a PPI for any possible sx from hiatal hernia. There is no indication he is withdrawing from alcohol at this time. Echo has been ordered, pending, as is an inpatient cardiology consult. He is stable for transfer to [facility] cardiology service today. For transfer medications, please look at inpatient MAR rather than the list below. Care for patient as well as completion of his transferpaperwork today took 1 hour. Discharge Data Discharge Date/Time-TO BE ENTERED AT DEPARTURE: 07/22/19 19:32 Medical Decision Making 74-year-old male with a history of hypertension, hyperlipidemia, daily alcohol abuse who presents for substernal chest heaviness for the past 2 weeks. EKG notes a rate of 79, sinus, right bundle branch block, no ischemic changes with no acute change from previous EKG. BP hypertensive. Patient states his chest pain is better with exertion which does not appear consistent with c ardiac, however the chest heaviness is concerning. Cardiac work-up obtained which notes a normal troponin and BNP and unchanged chest x-ray. Chest x-ray mentions stable infiltrate right lung base which may represent atelectasis or pneumonia. He has a normal white blood cell count without productive cough, so doubt pneumonia at this time. He was given 3 tabs of nitro with some improvement of symptoms. Patient had an outpatient stress test ordered for July 27. Case discussed with [facility] cardiology who recommended patient be transferred for concern for unstable angina responsive to nitro. Recommends heparin bolus and drip, Plavix, nitro drip titrated to pain. Accepting physician Dr. Danielle. There may be no beds available overnight and he may not be able to be transferred into the morning. Case discussed with hospitalist Dr. Haskins who accepts patient for admission here overnight. Medical Records Medical records reviewed: Yes I reviewed the patient's medical records. Imaging Data Radiologic Study: Radiologist's impression: XR CHEST 2V PA LATERAL CLINICAL HISTORY: chest pain, sob, r/o acute disease TECHNIQUE: 2D digital imaging was performed. COMPARISON: CR XR CHEST 2V PA LATERAL from 07/15/2019 FINDINGS: MEDIASTINUM: Normal. HEART: Normal. PULMONARY VASCULATURE: Normal. LUNGS: There is a stable infiltrate seen in the right lung base and right middle lobe. PLEURAL SPACE: No pleural effusion or pneumothorax. BONE:Normal. OTHER FINDINGS:Stable elevation of the right hemidiaphragm. IMPRESSION: Stable appearance of the chest. Stable infiltrate in the right lung base which may represent atelectasis or pneumonia. Lab Data Lab results reviewed: Yes I reviewed the patient's lab results. ECG Data Attestation: I personally reviewed and interpreted this ECG (s) as follows: Interpretation: Rate of 79, sinus, right bundle branch block. No acute ST elevation or depression. No acute change from previous EKG. ME 176. QTc 456. QRS 156. HPI General Mode of arrival: ambulatory . Date/Time Provider Initiated Documentation: 07/22/19 14:58 . Limitations to Documentation: no limitations . Information obtained by: patient . HPI Narrative: Patient is a 74-year-old male who is status post incarcerated inguinal hernia repair on 06/29/2019 who presents from surgery office for substernal chest pain. He states the chest pain has been constant, heaviness feeling like an elephant is sitting on my chest for the past few weeks. States the pain is better when getting up and walking around. He does admit to occasional shortness of breath. He denies any radiation of pain. He states the pain is currently 6/10. He denies any nausea, vomiting, dizziness, cough, fever. Of note, patient was here last week for similar chest pain and had a negative work-up including 2 negative troponins, EKGs negative for acute ischemia, and a CT chest negative for PE. Related Data Home Medications Medication Instructions Recorded Confirmed atorvastatin 10 mg tablet 10 mg PO DAILY #90 tab 10/22/18 07/22/19 inhalational spacing device #1 each 06/16/19 07/22/19 esomeprazole magnesium [Nexium] 1 mg PO DAILY 06/29/19 07/22/19 aspirin 81 mg tablet,delayed 81 mg PO DAILY 07/08/19 07/22/19 release sennosides 8.6 mg tablet 8.6 mg PO BID #60 tab 07/08/19 07/22/19 albuterol sulfate 90 mcg/actuation 2 puff IH QID PRN 07/20/19 07/22/19 aerosol inhaler Previous Rx's Medication Instructions Recorded atorvastatin 10 mg tablet 10 mg PO DAILY #90 tab 10/22/18 inhalational spacing device #1 each 06/16/19 sennosides 8.6 mg tablet 8.6 mg PO BID #60 tab 07/08/19 Allergies Allergy/AdvReac Type Severity Reaction Status Date / Time No Known Allergies Allergy Verified 07/22/19 13:49 General Stated Complaint: Chest Pain KANDACE: 2 Review of Systems All systems reviewed & are unremarkable except as noted in HPI and below Constitutional Constitutional: Reports as per HPI, Denies chills and Denies fever(s) Eyes Eyes: Denies blurry vision ENT Ears, Nose, Mouth, and Throat: Denies dizziness, Denies sore throat and Denies throat swelling Cardiovascular Cardiovascular: Denies chest pain and Denies dyspnea Respiratory Respiratory: Denies cough and Denies dyspnea Gastrointestinal Gastrointestinal: Denies abdominal pain, Denies diarrhea and Denies vomiting Genitourinary Genitourinary: Denies hematuria and Denies dysuria Musculoskeletal Musculoskeletal: Denies back pain and Denies numbness Integumentary/Breasts Skin/Breast: Denies lesions and Denies rash Neurologic Neurologic: Denies dizziness, Denies localized weakness and Denies numbness Allergic/Immunologic Allergic/Immunologic: Denies throat swelling [facility] Medical History Abnormal finding of diagnostic imaging (Acute) Bronchitis (Acute) pt treated for this w/ abx in june. no imagining done. Elevated diaphragm (Acute) Right shoulder pain (Acute) Strangulated umbilical hernia (Acute) Wheeze (Acute) Surgical History Colonoscopy - MAC 10/31/10;DR. ARJUN LYNN; MIXED TUBULAR AND SESSILE SERRATED ADENOMA Hemorrhoidectomy Replacement of total knee joint RIGHT Family History Father Personal history of malignant neoplasm COLON FAMILY HISTORY Personal history of malignant neoplasm PROSTATE Social History Smoking/Tobacco Use Status: Never Alcohol Intake: current Alcohol Intake frequency: 3 or more drinks per day Alcohol type: hard liquor Drug use: Never Substance use type: does not use Current gender identity: male Do you feel safe at home: Yes Do you feel safe in your relationship?: Yes Exam Const General: cooperative, healthy appearing and no acute distress HENMT Head: normal to inspection Face and sinus: normal facial exam Eyes General: appearance normal, both eyes and all related structures Pupils: PERRL EOM: EOM intact bilaterally Neck Neck: normal visual inspection and No submandibular swelling Lymphatic: no lymphadenopathy noted Chest Chest: normal inspection of the chest and no tenderness Resp Effort & Inspection: normal respiratory effort and able to speak in complete sentences Auscultation: clear to auscultation bilaterally Cardio Rate: regular rate Rhythm: regular rhythm GI Inspection: normal to inspection Palpation: soft, not firm, not rigid and nontender Auscultation: normal bowel sounds Male General Exam: Yes normal external exam Back/Spine/Pelvis Thoracic/Lumbar Spine: thoracic and lumbar spine normal to inspection Pelvis: no pain with anterior-posterior compression Skin General skin exam: no rashes or lesions noted Neuro General: patient alert, patient awake and patient oriented x3 Cognition: normal cognition Speech: speech normal Motor: muscle tone normal throughout Sensory Exam: no sensory deficits noted Extrem General: normal to inspection, full ROM, capillary refill normal, no calf tenderness bilaterally and no edema Psych Appearance: grossly normal Mental Status: mental status grossly normal Speech and Movement: speech and movement normal Affect: normal affect Course Vital Signs Vital signs: Vital Signs Temperature 97.9 F 07/22/19 14:45 Pulse 83 07/22/19 14:45 Respiratory Rate 21 07/22/19 14:45 Blood Pressure 175/80 H 07/22/19 14:45 Pulse Oximetry 95 07/22/19 14:45 Temperature 97.9 F 07/22/19 14:45 Temperature Source Skin 07/22/19 14:45 Pulse 83 07/22/19 14:45 Respiratory Rate 15 07/22/19 14:52 Respiratory Effort 07/22/19 14:52 Respiratory Depth Normal 07/22/19 14:52 Respiratory Pattern Normal 07/22/19 14:52 Blood Pressure 175/80 H 07/22/19 14:45 Pulse Oximetry 95 07/22/19 14:45 Oxygen Delivery Method Room Air 07/22/19 14:45 Oxygen Flow Rate 0 07/22/19 14:45 Pain Level 4 07/22/19 14:45 Lab/Test Results Lab/Test Results: Laboratory Tests Range/Units 07/22/19 14:48 WBC (4.4-10.8) k/cumm 5.66 RBC (4.50-6.00) m/cumm 5.61 Hgb (13.5-17.5) g/dL 17.5 Hct (40.0-50.0) % 51.3 H MCV (80-95) fL 91.4 MCH (27.0-33.0) pg 31.2 MCHC (32.0-36.0) g/dL 34.1 RDW (11.8-14.1) % 13.0 Plt Count (130-400) x1000/uL 213 MPV (8.0-11.0) fL 11.1 H Immature Gran % % 0.0 Neutrophils % 63.9 Lymphocytes % 18.2 Monocytes % 14.5 Eosinophils % 2.5 Basophils % 0.9 Absolute Neutrophils (1.2-6.7) k/cumm 3.62 Absolute Lymphocytes (1.2-3.4) k/cumm 1.03 L Absolute Monocytes (0.11-0.7) k/cumm 0.82 H Absolute Eosinophils (0.0-0.7) k/cumm 0.14 Absolute Basophils (0.0-0.2) k/cumm 0.05
[2019-07-22 15:39] LABS: ALT 58 U/L (16-63); AST 31 U/L (15-37); Albumin 4.1 g/dL (3.4-5.0); Alkaline Phosphatase 117 U/L (46-116); Anion Gap 9.6 mmol/L (3-11); BUN 17 mg/dL (7-18); Bilirubin, Total 0.5 mg/dL (0.2-1.0); CO2 26.4 mmol/L (21.0-32.0); CREATININE 1.14 mg/dL (0.70-1.30); Calcium 9.9 mg/dL (8.5-10.1); Chloride 103 mmol/L (98-107); Glucose 144 mg/dL (74-106); Magnesium 1.9 mg/dL (1.8-2.4); Potassium 3.8 mmol/L (3.5-5.1); Sodium 139 mmol/L (136-145); Total Protein 7.9 g/dL (6.4-8.2)
--- NOTE | 2019-07-22 15:40 | DI.RAD_ITS ---
EXAM: XR CHEST 2V PA LATERAL CLINICAL HISTORY: chest pain, sob, r/o acute disease TECHNIQUE: 2D digital imaging was performed. COMPARISON: CR XR CHEST 2V PA LATERAL from 07/15/2019 FINDINGS: MEDIASTINUM: Normal. HEART: Normal. PULMONARY VASCULATURE: Normal. LUNGS: There is a stable infiltrate seen in the right lung base and right middle lobe. PLEURAL SPACE: No pleural effusion or pneumothorax. BONE:Normal. OTHER FINDINGS:Stable elevation of the right hemidiaphragm. IMPRESSION: Stable appearance of the chest. Stable infiltrate in the right lung base which may represent atelect asis or pneumonia. DATA REPOSITORY: RADIATION DOSE DELIVERED:
[2019-07-22 15:42] LABS: Lipase 139 U/L (73-393); NT-proBNP 37 pg/mL (<300)
[2019-07-22 15:55] LABS: Troponin I < 0.05 ng/mL (<0.06)
[2019-07-22] MEDS: Aspirin 325 MG TAB PO (17:24)
[2019-07-22] MEDS: Clopidogrel 300 MG TAB PO (18:09)
[2019-07-22 18:12] LABS: PTT Activated 29.4 sec (21.0-31.4); Prothrombin Time 10.4 sec (9.3-11.0)
--- NOTE | 2019-07-22 18:23 | HPE_ITS ---
Date of service: 07/22/19 Time of Service: 18:23 Assessment and Plan Assessment and plan (1) Chest pain: Status: Acute Assessment and plan: CP: I think this is unlikely to be ACS, though stress test not unreasonable. The positional features are unusual, not sure where that points, but perhaps GI? Also unclear etiology for apparent hemiplegia of diaphragm , or how that might relate to current presentation. Since NTG and heparin already started will continue, but I think probably not needed and would have low threshhold to d/c. For now will trend out troponins and schedule for ETT. History of Present Illness History of Present Illness Chief Complaint: CP Narrative: 74 male reports 2 weeks of CP; then states 6 weeks; then states forever... In any case he has been having a continuous tightness in chest for some period of time. No radiation SOB. Seen ER 6 d [employer] with negative w/u, including CTA chest and serial trop, though elevated right hemidiaphragm noted, new x 01/29. Scheduled for ETT next week. Returns tonight with same complaint. No relation to activity, states it is worse when prone, better supine. No relation to PO, no dysphagia or odynophagia. In ER received SL NTG with partial relief. [facility] said they could accept him for stress testing but had no beds. ER starting NTV qtt and heparin. Admitted for further eval. Review of Systems All systems reviewed & are unremarkable except as noted in HPI and below PFSH Medical History Abnormal finding of diagnostic imaging (Acute) Bronchitis (Acute) pt treated for this w/ abx in june. no imagining done. Elevated diaphragm (Acute) Right shoulder pain (Acute) Strangulated umbilical hernia (Acute) Wheeze (Acute) Surgical History Colonoscopy - MAC 10/31/10;DR. ARJUN LYNN; MIXED TUBULAR AND SESSILE SERRATED ADENOMA Hemorrhoidectomy Replacement of total knee joint RIGHT Family History Father Personal history of malignant neoplasm COLON FAMILY HISTORY Personal history of malignant neoplasm PROSTATE Social History Smoking/Tobacco Use Status: Never Alcohol Intake: current Alcohol Intake frequency: 3 or more drinks per day Alcohol type: hard liquor Drug use: Never Substance use type: does not use Current gender identity: male Do you feel safe at home: Yes Do you feel safe in your relationship?: Yes Meds Home Medications and Allergies Home Medications Medication Instructions Recorded Confirmed Type atorvastatin 10 mg tablet 10 mg PO DAILY #90 tab 10/22/18 07/22/19 Rx inhalational spacing device #1 each 06/16/19 07/22/19 Rx esomeprazole magnesium [Nexium] 1 mg PO DAILY 06/29/19 07/22/19 History aspirin 81 mg tablet,delayed 81 mg PO DAILY 07/08/19 07/22/19 History release sennosides 8.6 mg tablet 8.6 mg PO BID #60 tab 07/08/19 07/22/19 Rx cephalexin [Keflex] 500 mg PO QID 7 Days #28 cap 07/16/19 07/22/19 Rx albuterol sulfate 90 mcg/actuation 2 puff IH QID PRN 07/20/19 07/22/19 History aerosol inhaler Allergies Allergy/AdvReac Type Severity Reaction Status Date / Time No Known Allergies Allergy Verified 07/22/19 13:49 Exam Narrative Exam Narrative: 132/96, 86, 36.6, 17, 92%RA. HEENT unremarkable; neck supple w/o JVD; lungs clear, diminished BS right base, no excursion with deep inspiration by auscultation or percussion; heart RRR 2/6 ap sys murmur; abdomen soft and NT; extremities 1+ pedal edema with stasis changes; neuro ox3, nonfocal Results CXR: no acute, elevated right hemidiaphragm EKG: NSR, old RBBB, no acute changes Labs Result diagrams: 07/22/19 14:48 07/22/19 14:48 Labs: Laboratory Results - last 24 hr 07/22/19 07/22/19 07/22/19 14:48 14:48 14:48 WBC 5.66 RBC 5.61 Hgb 17.5 Hct 51.3 H MCV 91.4 MCH 31.2 MCHC 34.1 RDW 13.0 Plt Count 213 MPV 11.1 H Immature Gran % 0.0 Neutrophils % 63.9 Lymphocytes % 18.2 Monocytes % 14.5 Eosinophils % 2.5 Basophils % 0.9 Absolute Neutrophils 3.62 Absolute Lymphocytes 1.03 L Absolute Monocytes 0.82 H Absolute Eosinophils 0.14 Absolute Basophils 0.05 PT INR APTT Sodium 139 Potassium 3.8 Chloride 103 Carbon Dioxide 26.4 Anion Gap 9.6 BUN 17 Creatinine 1.14 Estimated GFR/1.73 m2 >= 60.00 Glucose 144 H Calcium 9.9 Magnesium 1.9 Total Bilirubin 0.5 AST 31 ALT 58 Alkaline Phosphatase 117 H Troponin I < 0.05 NT-Pro-B Natriuret Pep 37 Total Protein 7.9 Albumin 4.1 Lipase 139 07/22/19 14:48 WBC RBC Hgb Hct MCV MCH MCHC RDW Plt Count MPV Immature Gran % Neutrophils % Lymphocytes % Monocytes % Eosinophils % Basophils % Absolute Neutrophils Absolute Lymphocytes Absolute Monocytes Absolute Eosinophils Absolute Basophils PT 10.4 INR 1.0 APTT 29.4 Sodium Potassium Chloride Carbon Dioxide Anion Gap BUN Creatinine Estimated GFR/1.73 m2 Glucose Calcium Magnesium Total Bilirubin AST ALT Alkaline Phosphatase Troponin I NT-Pro-B Natriuret Pep Total Protein Albumin Lipase Last Vital Signs Temp 36.6 C 07/22/19 14:45 Pulse 86 07/22/19 16:52 Resp 17 07/22/19 16:52 BP 132/96 H 07/22/19 16:52 Pulse Ox 92 L 07/22/19 16:50 COVID-19 Screening In the past 14 days, have you traveled outside of [place] or [place]?: NO Had IN PERSON contact w/suspected or confirmed C-19 person: No
[2019-07-22 20:47] LABS: Troponin I < 0.05 ng/mL (<0.06)
[2019-07-22] MEDS: Senna TAB 1 TAB PO (21:08)
[2019-07-23] VITALS (44 sets, daily range): BP systolic 101–163; BP diastolic 45–100; PULSE 55–91; RESP 0–31; TEMP 36.1–37.2; O2SAT 88–97
--- NOTE | 2019-07-23 | DI.US_ITS ---
APPROVED REPORT EXAM: Comprehensive 2D, Doppler, and color-flow Echocardiogram Patient Location: In-Patient Special Police: Mary Lofton RDCS (AE) Indications: Unstable Angina Conclusion This is a technically limited study Left Ventricle : The left ventricle is normal size. The left ventricular systolic function is normal. The left ventricular ejection fraction is within the normal range. There is normal left ventricular wall thickness. Regional wall motion is grossly normal. The left ventricular diastolic function is n ormal. LVEF is 50-55%. Right Ventricle : The right ventricle is normal size. The right ventricular systolic function appears normal. Atria : The left atrium size is normal. The right atrium size is normal. Valves: There are no hemodynamically significant valvular lesions Please see remainder of study for additional details. There is no prior echocardiogram available for comparison. Wall motion Left Ventricle The left ventricle is normal size. The left ventricular systolic function is normal. The left ventric ular ejection fraction is within the normal range. There is normal left ventricular wall thickness. R egional wall motion is grossly normal. The left ventricular diastolic function is normal. LVEF is 50- 55%. Right Ventricle The right ventricle is normal size. The right ventricular systolic function appears normal. Atria The left atrium size is normal. The right atrium size is normal. Aortic Valve Aortic valve is probably trileaflet. Aortic valve leaflets are sclerotic with decreased opening. Ther e is no aortic valvular stenosis. No aortic regurgitation is present. Mitral Valve The mitral valve is normal in structure. No evidence of mitral valve stenosis. There is no mitral aysha ve regurgitation noted. Tricuspid Valve The tricuspid valve is normal in structure. There is no tricuspid valve stenosis. There is no tricusp id valve regurgitation noted. Pulmonic Valve Pulmonic valve is not well visualized. Mild pulmonic regurgitation. Great Vessels The aortic root is normal in size. The IVC was not visualized. 2D Dimensions IVSD d PLAX 1.15 cm M: 0.6-1.2 LV Vol A2C d MOD 119.7 mL LVPW d PLAX 1.14 cm M: 0.6 - 1.2 LV Vol A4C d MOD 118.4 mL LVID d PLAX 4.59 cm M: 4.2 - 5.8 LA vol/ BSA A2C s A-L 16.3 mL/m2 LVDs 2.95 cm M: 2.5 - 4.0 LA Area A2C s MOD 17.33 cm2 Ao Root d 2.86 cm M: 3.1 - 3.7 LV EF A4C MOD 52.3 % LV EF Teichholz 64.8 % LV EF A2C MOD 50.3 % LVEF (Good's) 51.36 % M: 52 - 72 LV EF Biplane MOD 51.4 % LV Volume 87.38 mL M: 62 - 150 SV 64.73 mL LV Volume Index 33.86 mL/m2 M: 34 - 74 SV Index 25.03 mL/m2 LV Vol Biplane MOD 126.0 mL FS 35.30 % LV Diastology MV E' medial 0.070 (>0.07 m/s) E/A Ratio 0.7 LV E/e MED 8.90 (<14) MV E Vmax 0.62 (0.4-1.3 m/s) MV E' lateral 0.095 (>0.1 m/s) MV A Vmax 0.85 (0.4-1.3 m/s) LV E/e LAT 6.50 (<14) MV E/A Ratio 0.69 MV E/E' medial 8.91 MV E/E' lateral 6.51 Aortic Valve LVOT Area 2.60 cm2 AoV Area Vmax 1.54 cm2 LVOT Vmax 0.97 m/s AoV Area/ BSA (Vmax) 0.60 cm2/m2 LVOT Mean Konstantin. 0.65 m/s DANA Mean Konstantin. 1.27 cm2 LVOT Peak Grad 3.7 mmHg DANA Mean Konstantin. Index 0.49 cm2/m2 LVOT Mean Grad 2.0 mmHg LVOT VTI 0.210 m LVOT Diam s 1.80 cm AoV Vmax 1.63 m/s Velocity Ratio 0.59 AoV Mean Konstantin. 1.33 m/s AoV Peak Grad 10.6 mmHg LVOT SV 54.73 mL AoV Mean Grad 7.6 mmHg AoV VTI 0.293 m AoV Area VTI 1.87 cm2 AoV Area/ BSA (VTI) 0.72 cm/m2 Mitral Valve MV DT 308 (160-240 msec) MV PHT 89 msec MV Area PHT 2.46 cm2 Pulmonary Valve PV Vmax 0.91 (0.5-1.5 m/s) RVOT Peak Gr. 1.69 mmHg PV Peak Grad 3.3 mmHg RVOT Mean Gr. 1.05 mmHg PV Mean Grad 2.7 mmHg RVOT VTI 0.097 m PV VTI 0.132 m RVOT Vmax 0.65 m/s Tricuspid Valve TR Peak Grad 10.7 mmHg TR Vmax 1.64 m/s
[2019-07-23 00:09] LABS: PTT Activated 55.2 sec (21.0-31.4)
[2019-07-23] MEDS: Acetaminophen 325 MG TAB 650 MG PO ×2 (06:28→15:23)
[2019-07-23 07:19] LABS: PTT Activated 44.9 sec (21.0-31.4)
[2019-07-23 07:28] LABS: Troponin I < 0.05 ng/mL (<0.06)
[2019-07-23 08:21] LABS: Anion Gap 10.3 mmol/L (3-11); BUN 15 mg/dL (7-18); CO2 23.7 mmol/L (21.0-32.0); CREATININE 0.88 mg/dL (0.70-1.30); Calcium 9.6 mg/dL (8.5-10.1); Calculated LDL 84 mg/dL (<100); Chloride 108 mmol/L (98-107); Cholesterol 144 mg/dL (<200); Glucose 106 mg/dL (74-106); HDL Cholesterol 45 mg/dL (40-60); Potassium 3.8 mmol/L (3.5-5.1); Sodium 142 mmol/L (136-145); Triglyceride 78 mg/dL (<150)
--- NOTE | 2019-07-23 08:43 | INITIAL_ITS ---
- If Service Date Differs Date of service: 07/23/19 Time of Service: 08:43 Care Management Initial Assess REASON FOR HOSPITALIZATION:: Chest Pain PAST MEDICAL HISTORY/PAST SURGICAL HISTORY:: Elevated diaphragm, strangulated umbilical hernia with recent repair, history of wheezing, and patient reports chest pain for the last few months. Surgical hx colonoscopy, hemorrhoidectomy, total right knee and hernia repair. 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 He is and live with his in [place], [place]. 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 He is indepdenent with ADL's and transportation. CURRENT FUNCTIONAL STATUS:: Chaka is engaged and interactive during assessment. He has several questions related to his care and why he needs to be transfered to [facility]. CM provided active listening and education related to his plan. CM contacted provider and requested a consultation to review plan and expectations. CM contacted Bryant's spouse and reviewed the plan she and their children and supportive of the transfer to [facility]. ADVANCE DIRECTIVES:: None on file not completed at this time. Has patient been provided with info about the portal/API?: Yes Did the patient sign up for the portal?: No CODE STATUS:: Full Code INSURANCE COVERAGE / FINANCIAL ISSUES:: BCBS CURRENT HOME/COMMUNITY SERVICES/EQUIPMENT:: No current services PRIMARY CARE PHYSICIAN:: Dr.Alfarez Rufino Prince POTENTIAL DISCHARGE NEEDS:: Patient to be transfered to [facility] when bed is available PATIENT/FAMILY EDUCATION NEEDS:: Education related to plan for transfer, and benefits. Also provided education related to disease process. ANTICIPATED BARRIERS TO DISCHARGE:: Awaiting a bed at [facility] for transfer TRANSPORTATION:: Transfer via ambulance PLAN:: Bryant will be transfered when bed is available. CM contacted his spouse and reviewed the plan for transfer. CM will continue to provide support.
--- NOTE | 2019-07-23 08:54 | W.PM.PROGNOT ---
Subjective Subjective Interval history since last seen: Talkative this am. Pleasant, cooperative. CP 02/20. C/o chest tightness. Objective Objective Clinical Data: Abnormal lab results 07/22/19 07/22/19 07/22/19 Range/Units 14:48 14:48 23:50 Hct 51.3 H (40.0-50.0) % MPV 11.1 H (8.0-11.0) fL Absolute Lymphocytes 1.03 L (1.2-3.4) k/cumm Absolute Monocytes 0.82 H (0.11-0.7) k/cumm APTT 55.2 H D (21.0-31.4) sec Chloride (98-107) mmol/L Glucose 144 H (74-106) mg/dL Alkaline Phosphatase 117 H (46-116) U/L 07/23/19 07/23/19 Range/Units 06:40 06:45 Hct (40.0-50.0) % MPV (8.0-11.0) fL Absolute Lymphocytes (1.2-3.4) k/cumm Absolute Monocytes (0.11-0.7) k/cumm APTT 44.9 H (21.0-31.4) sec Chloride 108 H (98-107) mmol/L Glucose (74-106) mg/dL Alkaline Phosphatase (46-116) U/L Vital Signs Temperature 37.2 C 07/23/19 03:26 Temperature Source Temporal Artery Scan 07/23/19 03:26 Pulse 66 07/23/19 03:30 Pulse 61 07/23/19 03:30 Respiratory Rate 0 L 07/23/19 03:30 Respiratory Effort Non-Labored 07/23/19 03:26 Respiratory Depth Normal 07/23/19 03:26 Respiratory Pattern Normal 07/23/19 03:26 Blood Pressure 123/62 07/23/19 03:30 Blood Pressure Mean 70 07/23/19 03:30 Blood Pressure Position Right Lateral 07/23/19 03:26 Pulse Oximetry 94 L 07/23/19 03:30 Oxygen Delivery Method Nasal Cannula 07/23/19 03:26 Oxygen Flow Rate 1.5 07/23/19 03:26 Pain Level 0 07/23/19 03:26 Intake & Output 07/22/19 07/22/19 07/23/19 11:59 23:59 11:59 Intake Total 69.333 / 69.333 Output Total 150 / 150 550 / 550 Balance -150 / -150 -480.667 / -480.667 Weight 136.6 kg Intake: IV 69.333 / 69.333 Output: Urine 150 / 150 550 / 550 Other: Urine Color Yellow Yellow Urine Appearance Clear Clear Urine Odor None Normal Comment voids to urinal. voids to urinal. Voiding Methods Urinal Laboratory Results WBC 5.66 k/cumm (4.4-10.8) 07/22/19 14:48 RBC 5.61 m/cumm (4.50-6.00) 07/22/19 14:48 Hgb 17.5 g/dL (13.5-17.5) 07/22/19 14:48 Hct 51.3 % (40.0-50.0) H 07/22/19 14:48 MCV 91.4 fL (80-95) 07/22/19 14:48 MCH 31.2 pg (27.0-33.0) 07/22/19 14:48 MCHC 34.1 g/dL (32.0-36.0) 07/22/19 14:48 RDW 13.0 % (11.8-14.1) 07/22/19 14:48 Plt Count 213 x1000/uL (130-400) 07/22/19 14:48 MPV 11.1 fL (8.0-11.0) H 07/22/19 14:48 Immature Gran % 0.0 % 07/22/19 14:48 Neutrophils % 63.9 07/22/19 14:48 Lymphocytes % 18.2 07/22/19 14:48 Monocytes % 14.5 07/22/19 14:48 Eosinophils % 2.5 07/22/19 14:48 Basophils % 0.9 07/22/19 14:48 Absolute Neutrophils 3.62 k/cumm (1.2-6.7) 07/22/19 14:48 Absolute Lymphocytes 1.03 k/cumm (1.2-3.4) L 07/22/19 14:48 Absolute Monocytes 0.82 k/cumm (0.11-0.7) H 07/22/19 14:48 Absolute Eosinophils 0.14 k/cumm (0.0-0.7) 07/22/19 14:48 Absolute Basophils 0.05 k/cumm (0.0-0.2) 07/22/19 14:48 PT 10.4 sec (9.3-11.0) 07/22/19 14:48 INR 1.0 (0.9-1.1) 07/22/19 14:48 APTT 44.9 sec (21.0-31.4) H 07/23/19 06:45 Sodium 142 mmol/L (136-145) 07/23/19 06:40 Potassium 3.8 mmol/L (3.5-5.1) 07/23/19 06:40 Chloride 108 mmol/L (98-107) H 07/23/19 06:40 Carbon Dioxide 23.7 mmol/L (21.0-32.0) 07/23/19 06:40 Anion Gap 10.3 mmol/L (3-11) 07/23/19 06:40 BUN 15 mg/dL (7-18) 07/23/19 06:40 Creatinine 0.88 mg/dL (0.70-1.30) 07/23/19 06:40 Estimated GFR/1.73 m2 >= 60.00 (mL/min/1.73m2) 07/23/19 06:40 Glucose 106 mg/dL (74-106) 07/23/19 06:40 Calcium 9.6 mg/dL (8.5-10.1) 07/23/19 06:40 Magnesium 2.0 mg/dL (1.8-2.4) 07/23/19 06:40 Total Bilirubin 0.5 mg/dL (0.2-1.0) 07/22/19 14:48 AST 31 U/L (15-37) 07/22/19 14:48 ALT 58 U/L (16-63) 07/22/19 14:48 Alkaline Phosphatase 117 U/L (46-116) H 07/22/19 14:48 Troponin I < 0.05 ng/mL (<0.06) 07/23/19 06:45 NT-Pro-B Natriuret Pep 37 pg/mL (<300) 07/22/19 14:48 Total Protein 7.9 g/dL (6.4-8.2) 07/22/19 14:48 Albumin 4.1 g/dL (3.4-5.0) 07/22/19 14:48 Triglycerides 78 mg/dL (<150) 07/23/19 06:40 Total Cholesterol 144 mg/dL (<200) 07/23/19 06:40 LDL Cholesterol, Calc 84 mg/dL (<100) 07/23/19 06:40 HDL Cholesterol 45 mg/dL (40-60) 07/23/19 06:40 Lipase 139 U/L (73-393) 07/22/19 14:48
--- NOTE | 2019-07-23 09:20 | W.PM.PROGNOT ---
Date of Service Date of service: 07/23/19 Time of Service: 09:21 Objective Objective Clinical Data: Abnormal lab results 07/22/19 07/22/19 07/22/19 Range/Units 14:48 14:48 23:50 Hct 51.3 H (40.0-50.0) % MPV 11.1 H (8.0-11.0) fL Absolute Lymphocytes 1.03 L (1.2-3.4) k/cumm Absolute Monocytes 0.82 H (0.11-0.7) k/cumm APTT 55.2 H D (21.0-31.4) sec Chloride (98-107) mmol/L Glucose 144 H (74-106) mg/dL Alkaline Phosphatase 117 H (46-116) U/L 07/23/19 07/23/19 Range/Units 06:40 06:45 Hct (40.0-50.0) % MPV (8.0-11.0) fL Absolute Lymphocytes (1.2-3.4) k/cumm Absolute Monocytes (0.11-0.7) k/cumm APTT 44.9 H (21.0-31.4) sec Chloride 108 H (98-107) mmol/L Glucose (74-106) mg/dL Alkaline Phosphatase (46-116) U/L Vital Signs Temperature 37.2 C 07/23/19 03:26 Temperature Source Temporal Artery Scan 07/23/19 03:26 Pulse 66 07/23/19 03:30 Pulse 61 07/23/19 03:30 Respiratory Rate 0 L 07/23/19 03:30 Respiratory Effort Non-Labored 07/23/19 03:26 Respiratory Depth Normal 07/23/19 03:26 Respiratory Pattern Normal 07/23/19 03:26 Blood Pressure 123/62 07/23/19 03:30 Blood Pressure Mean 70 07/23/19 03:30 Blood Pressure Position Right Lateral 07/23/19 03:26 Pulse Oximetry 94 L 07/23/19 03:30 Oxygen Delivery Method Nasal Cannula 07/23/19 03:26 Oxygen Flow Rate 1.5 07/23/19 03:26 Pain Level 0 07/23/19 03:26 Intake & Output 07/22/19 07/22/19 07/23/19 11:59 23:59 11:59 Intake Total 149.333 / 149.333 Output Total 150 / 150 550 / 550 Balance -150 / -150 -400.667 / -400.667 Weight 136.6 kg Intake: IV 149.333 / 149.333 Output: Urine 150 / 150 550 / 550 Other: Urine Color Yellow Yellow Urine Appearance Clear Clear Urine Odor None Normal Comment voids to urinal. voids to urinal. Voiding Methods Urinal Laboratory Results WBC 5.66 k/cumm (4.4-10.8) 07/22/19 14:48 RBC 5.61 m/cumm (4.50-6.00) 07/22/19 14:48 Hgb 17.5 g/dL (13.5-17.5) 07/22/19 14:48 Hct 51.3 % (40.0-50.0) H 07/22/19 14:48 MCV 91.4 fL (80-95) 07/22/19 14:48 MCH 31.2 pg (27.0-33.0) 07/22/19 14:48 MCHC 34.1 g/dL (32.0-36.0) 07/22/19 14:48 RDW 13.0 % (11.8-14.1) 07/22/19 14:48 Plt Count 213 x1000/uL (130-400) 07/22/19 14:48 MPV 11.1 fL (8.0-11.0) H 07/22/19 14:48 Immature Gran % 0.0 % 07/22/19 14:48 Neutrophils % 63.9 07/22/19 14:48 Lymphocytes % 18.2 07/22/19 14:48 Monocytes % 14.5 07/22/19 14:48 Eosinophils % 2.5 07/22/19 14:48 Basophils % 0.9 07/22/19 14:48 Absolute Neutrophils 3.62 k/cumm (1.2-6.7) 07/22/19 14:48 Absolute Lymphocytes 1.03 k/cumm (1.2-3.4) L 07/22/19 14:48 Absolute Monocytes 0.82 k/cumm (0.11-0.7) H 07/22/19 14:48 Absolute Eosinophils 0.14 k/cumm (0.0-0.7) 07/22/19 14:48 Absolute Basophils 0.05 k/cumm (0.0-0.2) 07/22/19 14:48 PT 10.4 sec (9.3-11.0) 07/22/19 14:48 INR 1.0 (0.9-1.1) 07/22/19 14:48 APTT 44.9 sec (21.0-31.4) H 07/23/19 06:45 Sodium 142 mmol/L (136-145) 07/23/19 06:40 Potassium 3.8 mmol/L (3.5-5.1) 07/23/19 06:40 Chloride 108 mmol/L (98-107) H 07/23/19 06:40 Carbon Dioxide 23.7 mmol/L (21.0-32.0) 07/23/19 06:40 Anion Gap 10.3 mmol/L (3-11) 07/23/19 06:40 BUN 15 mg/dL (7-18) 07/23/19 06:40 Creatinine 0.88 mg/dL (0.70-1.30) 07/23/19 06:40 Estimated GFR/1.73 m2 >= 60.00 (mL/min/1.73m2) 07/23/19 06:40 Glucose 106 mg/dL (74-106) 07/23/19 06:40 Calcium 9.6 mg/dL (8.5-10.1) 07/23/19 06:40 Magnesium 2.0 mg/dL (1.8-2.4) 07/23/19 06:40 Total Bilirubin 0.5 mg/dL (0.2-1.0) 07/22/19 14:48 AST 31 U/L (15-37) 07/22/19 14:48 ALT 58 U/L (16-63) 07/22/19 14:48 Alkaline Phosphatase 117 U/L (46-116) H 07/22/19 14:48 Troponin I < 0.05 ng/mL (<0.06) 07/23/19 06:45 NT-Pro-B Natriuret Pep 37 pg/mL (<300) 07/22/19 14:48 Total Protein 7.9 g/dL (6.4-8.2) 07/22/19 14:48 Albumin 4.1 g/dL (3.4-5.0) 07/22/19 14:48 Triglycerides 78 mg/dL (<150) 07/23/19 06:40 Total Cholesterol 144 mg/dL (<200) 07/23/19 06:40 LDL Cholesterol, Calc 84 mg/dL (<100) 07/23/19 06:40 HDL Cholesterol 45 mg/dL (40-60) 07/23/19 06:40 Lipase 139 U/L (73-393) 07/22/19 14:48
[2019-07-23] MEDS: Atorvastatin 10 MG TAB PO (09:46)
[2019-07-23] MEDS: Senna TAB 1 TAB PO (09:46)
[2019-07-23] MEDS: Esomeprazole 20 MG CAPCR PO (09:46)
[2019-07-23] MEDS: Aspirin E.C. 81 MG TABEC PO (09:46)
[2019-07-23] MEDS: Clopidogrel 75 MG TAB PO (11:47)
[2019-07-23] MEDS: Thiamine 100 MG TAB PO (11:47)
--- NOTE | 2019-07-23 12:35 | W.PM.DS.N ---
Date of service: 07/23/19 Time of Service: 12:36 DS: Diagnosis Discharge Diagnosis (1) Unstable angina: Status: Acute (2) Diaphragmatic paralysis: Status: Acute (3) H/O alcohol abuse: Status: Acute (4) Hyperlipidemia: Status: Acute Discharge Plan Disposition Patient Disposition: [facility] Condition: Stable Discharge Details Chief Complaint: Chest Pain Clinical Impression: Chest pain Reason For Visit: CP Admit Date/Time: 07/22/19 18:38 Admit Provider: Saturnino Haskins Attending Provider: Saturnino Haskins Primary Care Provider: Parish Ferrer ED Provider: Rena Beth Hospital Course Hospital Course: Mr Swartz is a 74 year old male with PMHx of recent umbilical hernia repair, chronic cough, hiatal hernia (never having had surgery for this), alcohol abuse, obesith with BMI of 38.7, who was observed on [facility] hospitalist service in the ICU pending bed availability on [facility] cardiology service, having been preaccepted there for ischemic evaluation of unstable angina. The patient has been having chest tightness with activity and with rest, which was somewhat relieved with nitroglycerin in the ED and was described as elephant sitting on my chest when he was seen by Dr Estrada in the office earlier that day. He has had negative serial troponins. He had a negative CTA of the chest 1 week prior having presented to the ED with chest discomfort at that time as well. He was supposed to originally have a stress test as outpatient next week, but as his chest pain was felt to be possibly due to unstable angina, he was admitted to [facility] ICU on heparin/nitroglycerin drips and is now felt to be too high risk to have a stress test at our facility, likely requiring a cardiac catheterization. He was also started on asa and plavix. The patient does have a relatively newly diagnosed R hemidiaphragmatic paralysis (first seen on CT 07/16/2019), for which he has yet to be evaluated by pulmonology. This persists on CXR from this visit. He is on a PPI for any possible sx from hiatal hernia. There is no indication he is withdrawing from alcohol at this time. Echo has been ordered, pending, as is an inpatient cardiology consult. He is stable for transfer to [facility] cardiology service today. For transfer medications, please look at inpatient MAR rather than the list below. Care for patient as well as completion of his transferpaperwork today took 1 hour. Home Meds and New Rx's Prescriptions: No Action aspirin 81 mg tablet,delayed release (DR/EC) 81 mg PO DAILY RF: 0 sennosides [senna] 8.6 mg tablet 8.6 mg PO BID Qty: 60 RF: 0 albuterol sulfate 90 mcg/actuation HFA aerosol inhaler 2 puff IH QID PRNRF: 0 atorvastatin 10 mg tablet 10 mg PO DAILY Qty: 90 RF: 3 (DME) Aerochamber MV Spacer See Rx Instructions .ROUTE .MEDSUPPLY Qty: 1 RF: 0 esomeprazole magnesium [Nexium] 20 mg Capsule,Delayed Release(Dr/Ec) 1 mg PO DAILY RF: 0 cephalexin [Keflex] 500 mg capsule 500 mg PO QID 7 Days Qty: 28 RF: 0 Discharge Instructions Activity:: bedrest Equipment/Supplies:: No Equipment Needed Diet:: Low Sodium Discharge Orders Discharge Orders: Discharge Order (Routine); Ordered 07/23/19 Ordered By: Gladys Bradshaw DS: Summary Status at Discharge Functional status at discharge: independent ambulation Overall status at discharge: patient is not back to baseline Mental Status: mental status grossly normal Speech and Movement: speech and movement normal Mood: congruent mood Affect: normal affect Exam Narrative Exam Narrative: General: Very pleasant elderly male, A&Ox3, initially asleep in bed, arousable, not in acute distress HEENT: EOMI, MMM Heart: RRR, no m/r/g Lungs: CTAB Abdomen: soft, nontender, nondistended Extremities: +1 BLE edema, symmetric, no c/c BLE's, 1+ pedal pulses B Psych Mental Status: mental status grossly normal Speech and Movement: speech and movement normal Mood: congruent mood Affect: normal affect DS: Data Vitals/I&O Vitals and I&O: Vital Signs Temperature 36.1 C L 07/23/19 11:54 Temperature Source Temporal Artery Scan 07/23/19 11:54 Pulse 78 07/23/19 08:30 Pulse 78 07/23/19 08:30 Respiratory Rate 31 H 07/23/19 08:30 Respiratory Effort 07/23/19 11:54 Respiratory Depth Normal 07/23/19 08:45 Respiratory Pattern Normal 07/23/19 11:54 Blood Pressure 144/96 H 07/23/19 08:30 Blood Pressure Mean 104 07/23/19 08:30 Blood Pressure Position Supine 07/23/19 11:54 Pulse Oximetry 95 07/23/19 08:30 Oxygen Delivery Method Room Air 07/23/19 08:45 Oxygen Flow Rate 0 07/23/19 08:45 Pain Level 2 07/23/19 11:54 Intake & Output 07/22/19 07/23/19 07/23/19 23:59 11:59 23:59 Intake Total 149.333 / 149.333 Output Total 150 / 150 775 / 775 Balance -150 / -150 -625.667 / -625.667 Weight 136.6 kg Intake: IV 149.333 / 149.333 Output: Urine 150 / 150 775 / 775 Other: Urine Color Yellow Yellow Urine Appearance Clear Clear Urine Odor None Normal Comment voids to urinal. voids to urinal. Voiding Methods Urinal Urinal Data Completed and Pending Completed studies during hospitalization [Text1]: CXR: official read pending. Per my read, elevation of R hemidiaphragm, no acute process (seen on CT on 07/16/2019), no acute process. Labs on day of discharge: Labs from last 24 hours 07/23/19 07/23/19 07/23/19 06:45 06:45 06:40 WBC RBC Hgb Hct MCV MCH MCHC RDW Plt Count MPV Immature Gran % Neutrophils % Lymphocytes % Monocytes % Eosinophils % Basophils % Absolute Neutrophils Absolute Lymphocytes Absolute Monocytes Absolute Eosinophils Absolute Basophils PT INR APTT 44.9 H Sodium 142 Potassium 3.8 Chloride 108 H Carbon Dioxide 23.7 Anion Gap 10.3 BUN 15 Creatinine 0.88 Estimated GFR/1.73 m2 >= 60.00 Glucose 106 Calcium 9.6 Magnesium 2.0 Total Bilirubin AST ALT Alkaline Phosphatase Troponin I < 0.05 NT-Pro-B Natriuret Pep Total Protein Albumin Triglycerides 78 Total Cholesterol 144 LDL Cholesterol, Calc 84 HDL Cholesterol 45 Lipase COVID-19 PCR Nasopharyn COVID-19 PCR Ref Test Perform Site 07/22/19 07/22/19 07/22/19 23:50 20:08 19:30 WBC RBC Hgb Hct MCV MCH MCHC RDW Plt Count MPV Immature Gran % Neutrophils % Lymphocytes % Monocytes % Eosinophils % Basophils % Absolute Neutrophils Absolute Lymphocytes Absolute Monocytes Absolute Eosinophils Absolute Basophils PT INR APTT 55.2 H D Sodium Potassium Chloride Carbon Dioxide Anion Gap BUN Creatinine Estimated GFR/1.73 m2 Glucose Calcium Magnesium Total Bilirubin AST ALT Alkaline Phosphatase Troponin I < 0.05 NT-Pro-B Natriuret Pep Total Protein Albumin Triglycerides Total Cholesterol LDL Cholesterol, Calc HDL Cholesterol Lipase COVID-19 PCR Pending Nasopharyn COVID-19 PCR Pending Ref Test Perform Site Pending 07/22/19 07/22/19 07/22/19 18:40 14:48 14:48 WBC RBC Hgb Hct MCV MCH MCHC RDW Plt Count MPV Immature Gran % Neutrophils % Lymphocytes % Monocytes % Eosinophils % Basophils % Absolute Neutrophils Absolute Lymphocytes Absolute Monocytes Absolute Eosinophils Absolute Basophils PT 10.4 INR 1.0 APTT 29.4 Sodium Potassium Chloride Carbon Dioxide Anion Gap BUN Creatinine Estimated GFR/1.73 m2 Glucose Calcium Magnesium Total Bilirubin AST ALT Alkaline Phosphatase Troponin I Cancelled NT-Pro-B Natriuret Pep 37 Total Protein Albumin Triglycerides Total Cholesterol LDL Cholesterol, Calc HDL Cholesterol Lipase 139 COVID-19 PCR Nasopharyn COVID-19 PCR Ref Test Perform Site 07/22/19 07/22/19 14:48 14:48 WBC 5.66 RBC 5.61 Hgb 17.5 Hct 51.3 H MCV 91.4 MCH 31.2 MCHC 34.1 RDW 13.0 Plt Count 213 MPV 11.1 H Immature Gran % 0.0 Neutrophils % 63.9 Lymphocytes % 18.2 Monocytes % 14.5 Eosinophils % 2.5 Basophils % 0.9 Absolute Neutrophils 3.62 Absolute Lymphocytes 1.03 L Absolute Monocytes 0.82 H Absolute Eosinophils 0.14 Absolute Basophils 0.05 PT INR APTT Sodium 139 Potassium 3.8 Chloride 103 Carbon Dioxide 26.4 Anion Gap 9.6 BUN 17 Creatinine 1.14 Estimated GFR/1.73 m2 >= 60.00 Glucose 144 H Calcium 9.9 Magnesium 1.9 Total Bilirubin 0.5 AST 31 ALT 58 Alkaline Phosphatase 117 H Troponin I < 0.05 NT-Pro-B Natriuret Pep Total Protein 7.9 Albumin 4.1 Triglycerides Total Cholesterol LDL Cholesterol, Calc HDL Cholesterol Lipase COVID-19 PCR Nasopharyn COVID-19 PCR Ref Test Perform Site [facility] Medical History Abnormal finding of diagnostic imaging (Acute) Bronchitis (Acute) pt treated for this w/ abx in june. no imagining done. Elevated diaphragm (Acute) Right shoulder pain (Acute) Strangulated umbilical hernia (Acute) Wheeze (Acute) Surgical History Colonoscopy - [facility] 10/31/10;DR. ARJUN LYNN; MIXED TUBULAR AND SESSILE SERRATED ADENOMA Hemorrhoidectomy Replacement of total knee joint RIGHT Family History Father Personal history of malignant neoplasm COLON FAMILY HISTORY Personal history of malignant neoplasm PROSTATE Social History Smoking/Tobacco Use Status: Never Alcohol Intake: current Alcohol Intake frequency: 3 or more drinks per day Alcohol type: hard liquor Drug use: Never Substance use type: does not use Current gender identity: male Do you feel safe at home: Yes Do you feel safe in your relationship?: Yes
[2019-07-23 14:14] LABS: COVID-19 RT-PCR UVMMC Result Negative (Negative)
== END 2019-07-23 19:20 | disposition short-term general hospital (02) ==
LOC: ER 14:55 → ICU 20:27
PROVIDERS: Admitting Provider General Practice; Emergency Provider Physician Assistant; PCP Family Medicine; Visit Provider Internal Medicine
DX: I20.0 Unstable angina (principal); E78.5 Hyperlipidemia, unspecified; F10.10 Alcohol abuse, uncomplicated; J98.6 Disorders of diaphragm; K44.9 Diaphragmatic hernia without obstruction or gangrene; E66.9 Obesity, unspecified; Z68.38 Body mass index [BMI] 38.0-38.9, adult
CPT/HCPCS: 36415; 80048; 80053; 80061; 83690; 93005; 96365; 96368; 99222; 99239; 99285; U0003; 71046; 83735; 83880; 84484; 85025; 85610; 85730; 93010; 93306; 99217; G0378

== ENCOUNTER 2020-03-28 02:07 | Outpatient (CLI) | payer MEDICARE, BC, SELFPAY ==
[2020-03-28 14:12] LABS: ALT 44 U/L (16-63); AST 32 U/L (15-37); Albumin 4.2 g/dL (3.4-5.0); Alkaline Phosphatase 114 U/L (46-116); Anion Gap 10.1 mmol/L (3-11); BUN 15 mg/dL (7-18); Bilirubin, Total 0.5 mg/dL (0.2-1.0); CO2 29.9 mmol/L (21.0-32.0); Calcium 10.5 mg/dL (8.5-10.1); Chloride 103 mmol/L (98-107); Glucose 127 mg/dL (74-106); Potassium 4.2 mmol/L (3.5-5.1); Sodium 143 mmol/L (136-145); Total Protein 7.4 g/dL (6.4-8.2)
== END 2020-03-28 02:08 | disposition home or self-care (01) ==
LOC: LBO 02:07
PROVIDERS: PCP Family Medicine; Visit Provider Nurse Practitioner Family
DX: R60.0 Localized edema (principal)
CPT/HCPCS: 36415; 80053

== ENCOUNTER 2020-07-05 03:09 | Outpatient (CLI) | payer BC, MEDICARE, SELFPAY ==
[2020-07-06 13:14] LABS: Source Nasal/Nares
[2020-07-06 16:05] LABS: COVID-19 PCR Negative (Negative)
== END 2020-07-05 03:10 | disposition home or self-care (01) ==
LOC: LBO 03:09
PROVIDERS: PCP Nurse Practitioner Family; Visit Provider Nurse Practitioner
DX: Z20.822 Contact with and (suspected) exposure to COVID-19 (principal); Z01.818 Encounter for other preprocedural examination
CPT/HCPCS: 87635

== ENCOUNTER 2020-07-22 03:36 | Outpatient (CLI) | payer MEDICARE, BC, SELFPAY ==
[2020-07-22 10:59] LABS: ALT 37 U/L (16-63); AST 21 U/L (15-37); Albumin 3.8 g/dL (3.4-5.0); Alkaline Phosphatase 120 U/L (46-116); Anion Gap 4.7 mmol/L (3-11); BUN 16 mg/dL (7-18); CO2 31.3 mmol/L (21.0-32.0); Calcium 9.6 mg/dL (8.5-10.1); Calculated LDL 78 mg/dL (<100); Chloride 106 mmol/L (98-107); Cholesterol 134 mg/dL (<200); Glucose 108 mg/dL (74-106); HDL Cholesterol 48 mg/dL (40-60); Potassium 4.4 mmol/L (3.5-5.1); Sodium 142 mmol/L (136-145); Total Protein 6.7 g/dL (6.4-8.2); Triglyceride 43 mg/dL (<150)
== END 2020-07-22 03:37 | disposition home or self-care (01) ==
PROVIDERS: PCP Nurse Practitioner Family; Visit Provider Nurse Practitioner Family
DX: I10 Essential (primary) hypertension (principal); E78.5 Hyperlipidemia, unspecified
CPT/HCPCS: 36415; 80053; 80061

== ENCOUNTER 2020-07-22 03:57 | Outpatient (CLI) | payer BC, MEDICARE, SELFPAY ==
[2020-07-22 11:27] LABS: Source Nasal/Nares
[2020-07-22 13:29] LABS: COVID-19 PCR Negative (Negative)
== END 2020-07-22 03:58 | disposition home or self-care (01) ==
LOC: LBO 03:57
PROVIDERS: Nurse Practitioner; PCP Nurse Practitioner Family; Visit Provider Nurse Practitioner Family
DX: Z20.822 Contact with and (suspected) exposure to COVID-19 (principal); Z01.818 Encounter for other preprocedural examination
CPT/HCPCS: 36415; 80053; 80061; 87635

== ENCOUNTER 2020-09-28 15:06 | Outpatient (REF) | payer BC, MEDICARE, SELFPAY ==
[2020-09-29 11:31] LABS: COVID-19 RT-PCR UVMMC Result Negative (Negative)
== END 2020-09-28 15:07 | disposition home or self-care (01) ==
LOC: LBN 15:06
PROVIDERS: PCP Nurse Practitioner Family; Visit Provider Nurse Practitioner Family
DX: Z20.822 Contact with and (suspected) exposure to COVID-19 (principal)
CPT/HCPCS: U0003; U0005

== ENCOUNTER 2020-11-29 19:50 | Outpatient (REF) | payer BC, MEDICARE, SELFPAY ==
[2020-12-01 18:22] LABS: COVID-19 RT-PCR UVMMC Result Negative (Negative)
== END 2020-11-29 19:51 | disposition home or self-care (01) ==
LOC: LBN 19:50
PROVIDERS: PCP Nurse Practitioner Family; Visit Provider Physician Assistant
DX: Z20.822 Contact with and (suspected) exposure to COVID-19 (principal)
CPT/HCPCS: U0003

== ENCOUNTER 2020-12-27 14:54 | Outpatient (CLI) | payer BC, MEDICARE, SELFPAY ==
--- NOTE | 2020-12-27 14:45 | RT.EKG_ITS ---
APPROVED REPORT Exam: Resting ECG Reason for Exam: irregular heat rate Patient Location: O HR:91 bpm ECG Measurements Heart Rate 91 AXIS AL [id number] P [id number] QRSd 168 QRS 83 QT 399 T -2 QTc 490 Conclusion Atrial fibrillation...V-rate 60-112, irreg A-activity Right bundle branch block...QRSd>120, terminal axis(90,270)
== END 2020-12-27 14:55 | disposition home or self-care (01) ==
LOC: DI.CM 14:56
PROVIDERS: PCP Nurse Practitioner Family; Visit Provider Physician Assistant
DX: R00.0 Tachycardia, unspecified (principal)
CPT/HCPCS: 93010

== ENCOUNTER 2020-12-27 18:05 | Outpatient (REF) | payer BC, MEDICARE, SELFPAY ==
[2020-12-27 20:29] LABS: Abs Immature Grans 0.03 10^3/uL (0.0-0.06); Absolute Basophil Count 0.08 10^3/uL (0.0-0.2); Absolute Eosinophil Count 0.11 10^3/uL (0.0-0.7); Absolute Lymphocyte Count 1.01 10^3/uL (1.2-3.4); Absolute Neutrophil Count 5.31 10^3/uL (1.2-6.7); Basophils % 1.1; Eosinophils % 1.5; HCT 53.7 % (40.0-50.0); HGB 17.9 g/dL (13.5-17.5); Immature Grans % 0.4; Lymphocytes % 13.6; MCH 31.2 pg (27.0-33.0); MCHC 33.3 % (32.0-36.0); MCV 93.6 fL (80-95); MPV 11.9 fL (8.0-11.0); Monocytes % 12.1; Neutrophils % 71.3; Nucleated RBC 0 %; Platelet Count 213 10^3/uL (130-400); RBC 5.74 10^6/uL (4.36-5.78); RDW 13.7 % (11.8-14.1); RDW-SD 47.6 fL; WBC 7.44 10^3/uL (4.4-10.8)
[2020-12-27 20:53] LABS: ALT 52 U/L (16-63); AST 41 U/L (15-37); Albumin 4.3 g/dL (3.4-5.0); Alkaline Phosphatase 138 U/L (46-116); BUN 15 mg/dL (7-18); CREATININE 0.9 mg/dL (0.70-1.30); Calcium 9.9 mg/dL (8.5-10.1); Chloride 102 mmol/L (98-107); Glucose 108 mg/dL (74-106); Sodium 142 mmol/L (136-145); TSH (W/Ref FT4) 1.99 uIU/mL (0.36-3.74); Total Protein 7.7 g/dL (6.4-8.2)
[2020-12-29 10:17] LABS: COVID-19 RT-PCR UVMMC Result Negative (Negative)
== END 2020-12-27 18:06 | disposition home or self-care (01) ==
LOC: LBN 18:05
PROVIDERS: PCP Nurse Practitioner Family; Visit Provider Physician Assistant
DX: R53.83 Other fatigue (principal); I48.91 Unspecified atrial fibrillation; R51.9 Headache, unspecified
CPT/HCPCS: 80053; U0003; 84443; 85025

== ENCOUNTER 2021-01-03 01:47 | Outpatient (RCR) | payer BC, MEDICARE, SELFPAY ==
--- NOTE | 2021-01-03 08:00 | HOLTER_ITS ---
APPROVED REPORT Conclusion This is a 48-hour Holter monitor ordered for atrial fibrillation Patient was in atrial fibrillation throughout the recording. Average heart rate was 78. Minimum was 55, maximum 114 There were no ventricular dysrhythmias There were no pauses greater than 3 seconds No patient symptoms were reported
== END 2021-01-10 23:59 | disposition home or self-care (01) ==
LOC: RT 01:47
PROVIDERS: PCP Nurse Practitioner Family; Visit Provider Physician Assistant
DX: I48.91 Unspecified atrial fibrillation (principal)
CPT/HCPCS: 93225; 93226

== ENCOUNTER 2021-01-09 01:19 | Outpatient (CLI) | payer BC, MEDICARE, SELFPAY ==
--- OUTSIDE RECORDS SUMMARY | 2021-01-09 01:21 | XMS_ITS ---
:1945 Author Care Team Providers Name Role Phone DAVID VIEIRA MD Primary Care Provider [phone] Allergies Code Code System Name Reaction Severity Status Onset NKDA ? Medications Name Status Start Date Stop Date ? ? albuterol sulf 90 mcg/actuation breath activated powder inhaler, sensor Active ? Not available Inhale 2 puffs every 4 hours by inhalation route. amlodipine Active ? Not available 5mg 1x a day aspirin 81 mg tablet,delayed release Active ? Not available Take 1 tablet every day by oral route. atorvastatin 20 mg tablet Active ? Not av ailable Take 1 tablet every day by oral route. ibuprofen 200 mg capsule Active ? Not sergey ilable Take 1 capsule every 6 hours by oral route. Lasix Active ? Not available metoprolol succ 25 mg-hydrochlorothiazide 12.5 mg tablet,ext.rel 24 hr Active ? Not available Take 1 tablet every day by oral route. Nexium Active ? Not available omeprazole Active ? Not available 40 mg cap sennosides 8.6 mg capsule Active ? Not av ailable Take 2 capsules every day by oral route. sennosides 8.6 mg tablet Active ? Not sergey ilable Take 2 tablets every day by oral route. triamcinolone 0.1 % topical ointment and Active ? Not available dimethicone 5 % topical cream valsartan 160 mg tablet Active ? Not avai lable Take 1 tablet every day by oral route. zolpidem 5 mg tablet Active ? Not availab le take 1 PO night of sleep study Problems Name Status Onset Date Source ? Obstructive Sleep Apnea Syndrome Active 01/04/2020 ? 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 Pain in Lower Limb Active 01/04/2020 ? Dyspnea Active 01/04/2020 ? Snoring Active 01/05/2020 ? 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 Electrocardiogram Abnormal Active 03/31/2020 ? Hypertensive Disorder Active ? ? Procedures None recorded. Results Lab Results Date Name Specimen Result Interpretation Description Value Range Status Address ? 07/06/2020 SARS CoV 2 RNA ? No observation ? ? ? [facility] (COVID-19), QL, recorded. [place] [employer]-[facility]: [address] [facility] [place] Past Encounters 08/09/2020 Obstructive Sleep Apnea Syndrome Vonnie Jules, FNP: [address] [place] [phone], Ph. 03/31/2020 Obstructive Sleep Apnea Syndrome; Period ic Leg Movements of Sleep; Electrocardiogram Abnormal Vonnie Jules FNP: [address] [place] [phone], Ph. 01/05/2020 Snoring; Paralysis of Diaphragm Vonnie Jules FNP: [address] [place] [phone], Ph. Social History Tobacco Smoking Status Never Smoker Vaccine List None recorded. Plan of Care Reminders Provider Appointments None ? ? recorded. Lab None ? ? recorded. Referral None ? ? recorded. Procedures None ? ? recorded. Surgeries None ? ? recorded. Imaging None ? ? recorded. Vitals 08/09/2020 08:45AM Office 30 Height Weight BMI Blood Pressure 185.42 cm 122.47 kg 35.6 kg/m2 130/76 mm[Hg] 03/31/2020 11:30AM Office 30 Height Weight BMI Blood Pressure 185.42 cm 130.73 kg 38 kg/m2 150/76 mm[Hg] 01/05/2020 12:30PM New Patient 45 Height Weight BMI Blood Pressure 185.42 cm 128.5 kg 37.4 kg/m2 150/90 mm[Hg]
--- NOTE | 2021-01-09 15:00 | DI.US_ITS ---
APPROVED REPORT EXAM: Comprehensive 2D, Doppler, and color-flow Echocardiogram Patient Location: Out-Patient Heel Nailing Machine Operator: Mary Lofton RDCS (AE) Indications: New onset A Fib Other Information Study Quality: Adequate Conclusion Normal left ventricular wall thickness and chamber size. Left ventricular systolic function is borde rline normal with an estimated ejection fraction of 50 to 55%. There are no segmental wall motion ab normalities Normal right ventricular size and systolic function The left atrium is moderately dilated. The right atrium is mildly dilated The aortic valve is sclerotic and probably trileaflet, without stenosis or regurgitation Moderate mitral annular calcification. Trace mitral regurgitation Normal tricuspid valve with trace to mild regurgitation. Estimated right ventricular systolic pressu re is normal Dilated ascending aorta measuring 3.88 cm Wall motion Left Ventricle The left ventricle is normal size. Left ventricular systolic function is borderline normal There is n ormal left ventricular wall thickness. There are no segmental wall motion abnormalities There is no v entricular septal defect visualized. LVEF is 50-55%. Right Ventricle The right ventricle is normal size. The right ventricular systolic function is normal. The RVSP is 21 .7 mmHg. Atria Left atrium is moderately dilated. Right atrium is mildly dilated. The interatrial septum is intact w ith no evidence for an atrial septal defect. Aortic Valve Aortic valve is moderately sclerotic, probably trileaflet There is no aortic valvular stenosis. No ao rtic regurgitation is present. Mitral Valve Moderate mitral annular calcification. No evidence of mitral valve stenosis. Trace mitral regurgitati on. Tricuspid Valve The tricuspid valve is normal in structure. There is no tricuspid valve stenosis. Trace to mild tricu spid regurgitation. Pulmonic Valve The pulmonary valve is normal in structure. There is no pulmonic valvular stenosis. There is no pulmo luis a valvular regurgitation. Great Vessels Aortic root is upper normal in size. The ascending aorta is mildly dilated. Aortic arch is not well v isualized. IVC is normal in size and collapses >50% with inspiration. Pericardium There is no pericardial effusion. 2D Dimensions IVSD d PLAX 0.89 cm M: 0.6-1.2 LV Vol A2C d MOD 89.0 mL LVPW d PLAX 0.90 cm M: 0.6 - 1.2 LV Vol A4C d MOD 104.1 mL LVID d PLAX 4.85 cm M: 4.2 - 5.8 LA vol/ BSA A2C s A-L 32.3 mL/m2 LVDs 3.65 cm M: 2.5 - 4.0 LA vol/ BSA A4C s A-L 45.2 mL/m2 Ao Root d 3.77 cm M: 3.1 - 3.7 LA Vol/ BSA Biplane s A-L 41.6 mL/m2 RA Area A4C 26.89 cm2 LA Area A4C s MOD 31.46 cm2 RA Vol/ BSA A4C s A-L 41.8 mL/m2 LA Area A2C s MOD 24.38 cm2 Ao Asc Diam d 3.88 cm M: 2.6 - 3.4 LV EF A4C MOD 50.8 % LV EF Teichholz 47.9 % LV EF A2C MOD 50.4 % LVEF (Good's) 51.26 % M: 52 - 72 LV EF Biplane MOD 51.3 % LV Volume 69.47 mL M: 62 - 150 SV 50.77 mL LV Volume Index 28.01 mL/m2 M: 34 - 74 SV Index 20.45 mL/m2 LV Vol Biplane MOD 99.0 mL FS 24.10 % M-Mode TAPSE 2.18 cm (M/F) >1.7 LV Diastology MV E' medial 0.103 (>0.07 m/s) MV E Vmax 0.89 (0.4-1.3 m/s) LV E/e MED 8.65 (<14) MV E' lateral 0.104 (>0.1 m/s) LV E/e LAT 8.50 (<14) MV E/E' medial 8.67 MV E/E' lateral 8.53 Aortic Valve LVOT Area 3.25 cm2 AoV Area Vmax 1.50 cm2 LVOT Vmax 0.87 m/s AoV Area/ BSA (Vmax) 0.61 cm2/m2 LVOT Mean Konstantin. 0.61 m/s DANA Mean Konstantin. 1.36 cm2 LVOT Peak Grad 3.0 mmHg DANA Mean Konstantin. Index 0.55 cm2/m2 LVOT Mean Grad 1.7 mmHg LVOT VTI 0.164 m LVOT Diam s 2.00 cm AoV Vmax 1.88 m/s Velocity Ratio 0.46 AoV Mean Konstantin. 1.47 m/s AoV Peak Grad 14.1 mmHg LVOT SV 53.13 mL AoV Mean Grad 9.2 mmHg AoV VTI 0.370 m AoV Area VTI 1.43 cm2 AoV Area/ BSA (VTI) 0.58 cm/m2 Mitral Valve MV DT 184 (160-240 msec) MV PHT 53 msec MV Area PHT 4.13 cm2 MV VTI 0.166 m MV Area VTI 3.20 (4.0-6.0 cm2) Pulmonary Valve PV Vmax 0.80 (0.5-1.5 m/s) RVOT Peak Gr. 1.27 mmHg PV Peak Grad 2.6 mmHg RVOT Mean Gr. 0.65 mmHg PV Mean Grad 1.3 mmHg RVOT VTI 0.076 m PV VTI 0.123 m RVOT Vmax 0.56 m/s Tricuspid Valve TR Peak Grad 18.6 mmHg TR Vmax 2.16 m/s RA Pressure 3.00 mmHg RVSP (TR) 21.7 mmHg
== END 2021-01-09 01:39 ==
PROVIDERS: PCP Nurse Practitioner Family; Visit Provider Physician Assistant
DX: I48.91 Unspecified atrial fibrillation (principal); I51.7 Cardiomegaly; I77.810 Thoracic aortic ectasia
CPT/HCPCS: 93306

== ENCOUNTER 2021-01-13 09:13 | Outpatient (CLI) | payer BC, MEDICARE, SELFPAY ==
--- NOTE | 2021-01-13 09:00 | RT.EKG_ITS ---
APPROVED REPORT Exam: Resting ECG Reason for Exam: afib Patient Location: O HR:89 bpm ECG Measurements Heart Rate 89 AXIS MA [id number] P [id number] QRSd 159 QRS 74 QT 393 T 0 QTc 479 Conclusion Atrial fibrillation...V-rate 74-111, irreg A-activity Right bundle branch block...QRSd>120, terminal axis(90,270)
== END 2021-01-13 09:14 | disposition home or self-care (01) ==
LOC: DI.CARD 09:14
PROVIDERS: PCP Nurse Practitioner Family; Visit Provider Internal Medicine Cardiovascular Disease
DX: I48.91 Unspecified atrial fibrillation (principal)
CPT/HCPCS: 93010

== ENCOUNTER → 2021-01-13 09:16 | Outpatient (BNVA) | payer BC, MEDICARE, SELFPAY | PROVIDERS: PCP Nurse Practitioner Family; Referring Provider Nurse Practitioner Family; Visit Provider Internal Medicine Cardiovascular Disease | DX: I48.91 Unspecified atrial fibrillation (principal); I10 Essential (primary) hypertension; J98.6 Disorders of diaphragm; G47.33 Obstructive sleep apnea (adult) (pediatric); Z79.01 Long term (current) use of anticoagulants | CPT/HCPCS: 93005; 99203; 99214 ==

== ENCOUNTER 2021-01-16 08:42 | Outpatient (CLI) | payer MEDICARE, BC, SELFPAY | END 2021-01-16 08:43 | disposition home or self-care (01) | LOC: DI.CM 08:44 | PROVIDERS: PCP Nurse Practitioner Family; Visit Provider Family Medicine | DX: R69 Illness, unspecified (principal) ==

== ENCOUNTER 2021-02-16 14:18 | Outpatient (RCR) | payer BC, MEDICARE, SELFPAY ==
[2021-02-16 15:06] LABS: Abs Immature Grans 0.04 10^3/uL (0.0-0.06); Absolute Basophil Count 0.08 10^3/uL (0.0-0.2); Absolute Eosinophil Count 0.16 10^3/uL (0.0-0.7); Absolute Lymphocyte Count 1.21 10^3/uL (1.2-3.4); Absolute Monocyte Count 0.82 10^3/uL (0.1-0.8); Absolute Neutrophil Count 4.66 10^3/uL (1.2-6.7); Basophils % 1.1; Eosinophils % 2.3; HCT 52.1 % (40.0-50.0); HGB 17.5 g/dL (13.5-17.5); Immature Grans % 0.6; Lymphocytes % 17.4; MCH 31.6 pg (27.0-33.0); MCHC 33.6 % (32.0-36.0); MCV 94.2 fL (80-95); MPV 11.6 fL (8.0-11.0); Monocytes % 11.8; Neutrophils % 66.8; Nucleated RBC 0 %; Platelet Count 180 10^3/uL (130-400); RBC 5.53 10^6/uL (4.36-5.78); RDW 12.2 % (11.8-14.1); RDW-SD 42.9 fL; Reticulocyte 1.2 % (0.5-2.4); WBC 6.97 10^3/uL (4.4-10.8)
[2021-02-16 15:16] LABS: ALT 74 U/L (16-63); AST 45 U/L (15-37); Albumin 4.1 g/dL (3.4-5.0); Alkaline Phosphatase 142 U/L (46-116); Anion Gap 9.6 mmol/L (3-11); BUN 17 mg/dL (7-18); CO2 26.4 mmol/L (21.0-32.0); CREATININE 1.2 mg/dL (0.70-1.30); Calcium 9.7 mg/dL (8.5-10.1); Chloride 102 mmol/L (98-107); Estimated GFR 58.71 (mL/min/1.73m2); Glucose 122 mg/dL (74-106); Potassium 4.1 mmol/L (3.5-5.1); Sodium 138 mmol/L (136-145); Total Protein 7.8 g/dL (6.4-8.2)
[2021-02-17 14:06] LABS: Erythropoietin 12.7 mIU/mL (2.6 - 18.5)
[2021-02-23 11:37] LABS: JAK2 Result see interpretation
== END 2021-03-13 23:59 | disposition home or self-care (01) ==
LOC: INF 14:18
PROVIDERS: Internal Medicine Hematology & Oncology; PCP Nurse Practitioner Family; Visit Provider Internal Medicine Hematology & Oncology
DX: D75.1 Secondary polycythemia (principal)
CPT/HCPCS: 80053; 82668; 99195; 81270; 85025; 85045

== ENCOUNTER 2021-03-09 13:57 | Outpatient (REF) | payer BC, MEDICARE, SELFPAY ==
[2021-03-09 18:31] LABS: Abs Immature Grans 0.02 10^3/uL (0.0-0.06); Absolute Eosinophil Count 0.17 10^3/uL (0.0-0.7); Absolute Lymphocyte Count 1.05 10^3/uL (1.2-3.4); Absolute Neutrophil Count 4.34 10^3/uL (1.2-6.7); Basophils % 1.6; Eosinophils % 2.7; HCT 53.8 % (40.0-50.0); HGB 17.8 g/dL (13.5-17.5); Immature Grans % 0.3; Lymphocytes % 16.7; MCH 31.7 pg (27.0-33.0); MCHC 33.1 % (32.0-36.0); MCV 95.7 fL (80-95); MPV 11.5 fL (8.0-11.0); Monocytes % 9.6; Neutrophils % 69.1; Nucleated RBC 0 %; Platelet Count 199 10^3/uL (130-400); RBC 5.62 10^6/uL (4.36-5.78); RDW 12.7 % (11.8-14.1); RDW-SD 45.2 fL; WBC 6.28 10^3/uL (4.4-10.8)
[2021-03-09 19:13] LABS: Anion Gap 7.1 mmol/L (3-11); BUN 17 mg/dL (7-18); CO2 28.9 mmol/L (21.0-32.0); Calcium 9.6 mg/dL (8.5-10.1); Chloride 102 mmol/L (98-107); Glucose 134 mg/dL (74-106); NT-proBNP 397 pg/mL (<300); Sodium 138 mmol/L (136-145)
[2021-03-11 11:12] LABS: COVID-19 RT-PCR UVMMC Result Negative (Negative)
== END 2021-03-09 13:58 | disposition home or self-care (01) ==
LOC: LBN 13:57
PROVIDERS: PCP Nurse Practitioner Family; Visit Provider Nurse Practitioner Family
DX: R06.02 Shortness of breath
CPT/HCPCS: 80048; U0003; U0005; 83880; 85025

== ENCOUNTER 2021-03-09 14:38 | Outpatient (CLI) | payer BC, MEDICARE, SELFPAY ==
--- NOTE | 2021-03-09 13:30 | DI.RAD_ITS ---
Exam(s) XR CHEST 2V PA LATERAL EXAM: XR CHEST 2V PA LATERAL CLINICAL HISTORY: r/o Pneumonia/infiltrates,sob TECHNIQUE: 2D digital imaging was performed of the chest. Two images were obtained. PA and lateral views were obtained. COMPARISON: CR XR CHEST 2V PA LATERAL from 07/22/2019 FINDINGS: MEDIASTINUM: Normal. HEART: Normal. PULMONARY VASCULATURE: Normal. LUNGS: Clear. PLEURAL SPACE: No pleural effusion or pneumothorax. BONE:Within normal limits for the patient's age. OTHER FINDINGS:Unchanged elevation of the right hemidiaphragm. IMPRESSION: No acute pulmonary findings. DATA REPOSITORY: RADIATION DOSE DELIVERED:
== END 2021-03-09 14:58 ==
PROVIDERS: PCP Nurse Practitioner Family; Visit Provider Nurse Practitioner Family
DX: R06.02 Shortness of breath (principal)
CPT/HCPCS: 71046

== ENCOUNTER 2021-07-04 14:59 | Outpatient (CLI) | payer BC, MEDICARE, SELFPAY ==
[2021-07-04 15:23] LABS: HCT 50.4 % (40.0-50.0); MCH 31.7 pg (27.0-33.0); MCHC 33.7 % (32.0-36.0); MCV 94 fL (80-95); MPV 11.8 fL (8.0-11.0); Platelet Count 166 10^3/uL (130-400); RBC 5.36 10^6/uL (4.36-5.78); RDW 12.6 % (11.8-14.1); RDW-SD 43.6 fL; WBC 5.58 10^3/uL (4.4-10.8)
[2021-07-04 15:38] LABS: Anion Gap 6.3 mmol/L (3-11); BUN 12 mg/dL (7-18); CO2 28.7 mmol/L (21.0-32.0); CREATININE 1.2 mg/dL (0.70-1.30); Calcium 10.1 mg/dL (8.5-10.1); Chloride 104 mmol/L (98-107); Estimated GFR 58.56 (mL/min/1.73m2); Glucose 113 mg/dL (74-106); Potassium 4.2 mmol/L (3.5-5.1); Sodium 139 mmol/L (136-145)
[2021-07-04 15:42] LABS: INR 1.1 (0.9-1.1); PTT Activated 32.3 sec (21.0-27.5); Prothrombin Time 11.4 sec (9.3-11.0)
== END 2021-07-04 15:00 | disposition home or self-care (01) ==
LOC: LBO 15:03
PROVIDERS: PCP Nurse Practitioner Family; Visit Provider Nurse Practitioner Family
DX: R23.3 Spontaneous ecchymoses (principal)
CPT/HCPCS: 36415; 80048; 85027; 85610; 85730

== ENCOUNTER 2021-11-17 01:22 | Outpatient (CLI) | payer BC, MEDICARE, SELFPAY ==
[2021-11-17 12:30] LABS: Calculated LDL 83 mg/dL (<100); Cholesterol 160 mg/dL (<200); Estimated GFR 77.04 (mL/min/1.73m2); HDL Cholesterol 67 mg/dL (40-60); Triglyceride 53 mg/dL (<150)
== END 2021-11-17 01:23 | disposition home or self-care (01) ==
LOC: LOS 01:22
PROVIDERS: PCP Nurse Practitioner Family; Visit Provider Nurse Practitioner Family
DX: I10 Essential (primary) hypertension (principal); E78.5 Hyperlipidemia, unspecified
CPT/HCPCS: 36415; 80061; 82565; 84132

== ENCOUNTER 2022-02-13 14:09 | Outpatient (REF) | payer BC, MEDICARE, SELFPAY | END 2022-02-13 14:10 | disposition home or self-care (01) | LOC: LBN 14:09 | PROVIDERS: PCP Nurse Practitioner Family; Visit Provider Nurse Practitioner Family | DX: R30.0 Dysuria (principal) | CPT/HCPCS: 87086 ==

== ENCOUNTER 2022-03-01 12:34 | Outpatient (CLI) | payer BC, MEDICARE, SELFPAY ==
[2022-03-01 12:37] LABS: Abs Immature Grans 0.09 10^3/uL (0.0-0.06); Absolute Basophil Count 0.08 10^3/uL (0.0-0.2); Absolute Lymphocyte Count 1.01 10^3/uL (1.2-3.4); Absolute Monocyte Count 0.81 10^3/uL (0.1-0.8); Absolute Neutrophil Count 4.81 10^3/uL (1.2-6.7); Basophils % 1.2; Eosinophils % 1.4; HCT 52.9 % (40.0-50.0); HGB 18.1 g/dL (13.5-17.5); Immature Grans % 1.3; Lymphocytes % 14.6; MCH 32.6 pg (27.0-33.0); MCHC 34.2 % (32.0-36.0); MCV 95 fL (80-95); MPV 10.6 fL (8.0-11.0); Monocytes % 11.7; Neutrophils % 69.8; Platelet Count 258 10^3/uL (130-400); RBC 5.56 10^6/uL (4.36-5.78); RDW 12.4 % (11.8-14.1); RDW-SD 44.4 fL
[2022-03-01 13:17] LABS: Ferritin 164 ng/mL (26-388)
== END 2022-03-01 12:35 | disposition home or self-care (01) ==
LOC: LBO 12:35
PROVIDERS: PCP Nurse Practitioner Family; Visit Provider Surgery
DX: K62.5 Hemorrhage of anus and rectum (principal); Z79.01 Long term (current) use of anticoagulants
CPT/HCPCS: 36415; 82728; 85025

== ENCOUNTER 2022-05-27 15:45 | Emergency (ER) | payer BC, MEDICARE, SELFPAY ==
[2022-05-27] VITALS (31 sets, daily range): BP systolic 122–167; BP diastolic 65–128; PULSE 81–113; RESP 12–29; TEMP 36.5–36.9; O2SAT 80–100
--- NOTE | 2022-05-27 15:30 | RT.EKG_ITS ---
APPROVED REPORT Exam: Resting ECG Reason for Exam: chest pain Patient Location: E HR:92 bpm ECG Measurements Heart Rate 92 AXIS RI [id number] P [id number] QRSd 157 QRS 80 QT 402 T 2 QTc 497 Conclusion Atrial fibrillation...V-rate 82-130, irreg A-activity Right bundle branch block...QRSd>120, terminal axis(90,270)
--- NOTE | 2022-05-27 16:00 | DI.CT_ITS ---
Exam(s) CT HEAD CERVICAL SPINE WO EXAM: CT HEAD CERVICAL SPINE WO CLINICAL HISTORY: fal, HI, etoh, syncope. TECHNIQUE: Imaging Protocol: Axial computed tomography images with coronal and sagittal reformatted images were created and reviewed COMPARISON: No exams were available for comparison FINDINGS: BRAIN: There is almost complete opacification of the right maxillary sinus. Mucosal thickening fluid levels . There is also a defect in the medial wall of the maxillary sinus consistent with prior surgery. T he opposite-left maxillary There no skull There is no evidence of intracranial hemorrhage, mass effect, or shift of midline structures. There are no extra-axial fluid collections. The ventricles are not enlarged or shifted and there is no blo od within the ventricular system nor within the basal cisterns. CERVICAL SPINE: There is no evidence of fracture nor listhesis. No significant prevertebral soft tissue swelling. Multilevel chronic disc space narrowing evident. Multilevel facet arthropathy. There is no significant facet joint malalignment. No significant osseous lesions evident. IMPRESSION: No acute intracranial findings on this noninfused CT scan of the brain.Prominent mucosal thickening a nd some fluid in the right maxillary sinus. Evidence of previous endoscopic surgery surgical defect in the medial wall the right maxillary sinus evident. The left maxillary sinus is clear. No evidence of cervical spine fracture, malalignment, nor acute compromise of the cervical spinal can al. Multilevel degenerative changes as described above. RADIATION DOSE DELIVERED: 1,859.62mGy.cm Total DLP DATA REPOSITORY: All CT scans at this facility are submitted to the National Radiology Data Registry (NRDR) Dose Index Registry (DIR) with the [employer] (ACR). RADIATION OPTIMIZATION: All CT scans at this facility use at least one of these dose optimization te chniques: automated exposure control; mA and/or kV adjustment per patient size (includes targeted exa ms where dose is matched to clinical indication); or iterative reconstruction.
[2022-05-27] MEDS: Lactated Ringers 1,000 ML 1000 ML IV ×2 (16:13→18:42)
--- NOTE | 2022-05-27 16:13 | DI.RAD_ITS ---
Exam(s) XR CHEST 1V IN DI DEPT EXAM: XR CHEST 1V IN DI DEPT CLINICAL HISTORY: syncope. TECHNIQUE: 2D digital imaging was performed. COMPARISON: CR XR CHEST 2V PA LATERAL from 03/09/2021 FINDINGS: Single AP portable view. Heart size is upper normal. The mediastinum is not widened. Left lung is clear but there is a mild area of infiltrate in the lower right lung field. No pleural effusions. IMPRESSION: Small area of infiltrate noted in the lower right lung field. Recommend nonportable PA and lateral v iews when clinically possible.There are no obvious pleural effusions evident on this single view. DATA REPOSITORY: RADIATION DOSE DELIVERED:
[2022-05-27 16:37] LABS: ETHANOL BLOOD 186.8 mg/dL (<10)
[2022-05-27 16:46] LABS: Abs Immature Grans 0.04 10^3/uL (0.0-0.06); Absolute Basophil Count 0.11 10^3/uL (0.0-0.2); Absolute Eosinophil Count 0.13 10^3/uL (0.0-0.7); Absolute Lymphocyte Count 0.96 10^3/uL (1.2-3.4); Absolute Monocyte Count 0.77 10^3/uL (0.1-0.8); Basophils % 1.6; Eosinophils % 1.9; HCT 50.9 % (40.0-50.0); HGB 17.6 g/dL (13.5-17.5); Immature Grans % 0.6; Lymphocytes % 14.1; MCH 33.7 pg (27.0-33.0); MCHC 34.6 % (32.0-36.0); MCV 97 fL (80-95); MPV 10.9 fL (8.0-11.0); Monocytes % 11.3; Neutrophils % 70.5; Platelet Count 200 10^3/uL (130-400); RBC 5.23 10^6/uL (4.36-5.78); RDW 13.3 % (11.8-14.1); RDW-SD 48.8 fL; WBC 6.81 10^3/uL (4.4-10.8)
[2022-05-27 16:48] LABS: ALT 39 U/L (16-63); AST 47 U/L (15-37); Albumin 4.2 g/dL (3.4-5.0); Alkaline Phosphatase 104 U/L (46-116); Anion Gap 13.1 mmol/L (3-11); BUN 13 mg/dL (7-18); CO2 24.9 mmol/L (21.0-32.0); CREATININE 1.6 mg/dL (0.70-1.30); Calcium 9.8 mg/dL (8.5-10.1); Chloride 106 mmol/L (98-107); Estimated GFR 43.83 (mL/min/1.73m2); Glucose 89 mg/dL (74-106); Potassium 4.2 mmol/L (3.5-5.1); Sodium 144 mmol/L (136-145); TSH (W/Ref FT4) 1.82 uIU/mL (0.36-3.74); Total Protein 7.8 g/dL (6.4-8.2); Troponin I < 50 ng/L (<or=60)
--- NOTE | 2022-05-27 16:57 | W.ED.GENAD ---
Discharge Plan Disposition Patient Disposition: Home Discharge Details Clinical Impression: Alcoholism, Syncope, Azotemia Primary Care Provider: Eduardo Hebert ED Provider: Nila Felipe Home Meds and New Rx's Prescriptions: Continued Metamucil 3.4 gram/5.4 gram powder 1 tbsp PO DAILY Rx Instructions: mix into at least 8 oz of water or juice before administering metoprolol succinate 50 mg tablet extended release 24 hr 50 mg PO DAILY Qty: 90 3RF terbinafine HCl [Antifungal (terbinafine)] 1 % cream 1 applic topical BID Qty: 30 3RF Patient Comments: not taking trazodone 50 mg tablet 50 mg PO QHS Qty: 90 2RF atorvastatin 20 mg tablet 20 mg PO DAILY Qty: 90 3RF omeprazole 40 mg capsule,delayed release(DR/EC) 40 mg PO DAILY Qty: 90 3RF triamcinolone acetonide 0.1 % ointment 1 applic topical BID Qty: 80 1RF Patient Comments: not taking Rx Instructions: to affected area furosemide 40 mg tablet 40 mg PO DAILY Qty: 90 3RF valsartan 160 mg tablet 160 mg PO DAILY Qty: 90 3RF Eliquis 5 mg tablet 5 mg PO BID Qty: 180 3RF Discharge Instructions Instructions: Syncope (ED) Additional Instructions: Please try to cut down on your alcohol consumption, if you drink daily, cut down by 1 drink daily Increase your fluid hydration, at least ten 8 ounce glasses of water daily Have your creatinine level rechecked by your doctor Please follow-up with your doctor and schedule the Holter monitor that I am ordering for further evaluation, I suspect your symptoms today were related to the heat, dehydration, and alcohol consumption Please return immediately should you have new or worsening complaints You should be reevaluated by your doctor tomorrow Referrals: Eduardo Hebert, SECURITY SYSTEMS INSTALLER [Primary Care Provider] - 1 day Discharge Orders Other Ambulatory Orders: Holter Monitor (Routine) Timeframe: 1 Week Facility: [facility] - Location: Respiratory Therapy Ordered By: Nila Felipe Discharge Data Discharge Date/Time-TO BE ENTERED AT DEPARTURE: 05/27/22 19:35 Medical Decision Making 68-year-old gentleman with history of alcoholism presents with report of fall with syncopal event after drinking half pint of vodka today and painting outside all day Patient has a CT head and cervical spine does not show evidence of acute abnormality, diagnostic labs are stable for patient His blood alcohol was 189 He is monitored for several hours and is clinically sober at time of reassessment, his will pick him up His EKG and telemetry are all within normal limits and he has 2 negative troponins, I think this patient is stable for discharge home at this time, I suspect that his fall and syncopal event was likely related to dehydration and alcohol intoxication Patient received IV fluids and observation throughout this department stay He is given the threshold to return should he have new or worsening complaints Alcohol cessation reviewed HPI General Date/Time Provider Initiated Documentation: 05/27/22 15:54. HPI Narrative: This 76-year-old male with history of chronic anticoagulation, bilateral lower extremity edema, polycythemia, atrial fibrillation on chronic Eliquis presents with report of likely syncopal event. Patient had approximately half pint of vodka today while painting a mural in the sun and the next thing he recalls is waking up on the ground. EMS was called for assessment after witnessed event. Patient states he drinks occasionally, denies daily alcohol consumption or history of withdrawals. Denies any current pain complaints. Denies any fever or chills. Denies chest pain or shortness of breath prior to the event. Denies any additional illicit drug use. Denies any neck pain. Related Data Home Medications Medication Instructions Recorded Confirmed psyllium husk 3.4 gram/5.4 gram 1 tbsp PO DAILY 11/29/20 05/27/22 oral powder (Metamucil) atorvastatin 20 mg tablet 20 mg PO DAILY #90 tabs 03/30/21 05/27/22 trazodone 50 mg tablet 50 mg PO QHS sleep #90 tabs 03/30/21 05/27/22 metoprolol succinate 50 mg 50 mg PO DAILY #90 tabs 04/24/21 05/27/22 tablet,extended release 24 hr omeprazole 40 mg capsule,delayed 40 mg PO DAILY #90 caps 11/08/21 05/27/22 release terbinafine HCl 1 % topical cream 1 applic topical BID #30 grams 12/15/21 05/14/22 (Antifungal (terbinafine)) triamcinolone acetonide 0.1 % 1 applic topical BID #80 grams 01/10/22 05/14/22 topical ointment furosemide 40 mg tablet 40 mg PO DAILY #90 tabs 02/08/22 05/27/22 valsartan 160 mg tablet 160 mg PO DAILY #90 tabs 03/07/22 05/27/22 apixaban 5 mg tablet (Eliquis) 5 mg PO BID #180 tabs 04/27/22 05/27/22 Previous Rx's Medication Instructions Recorded atorvastatin 20 mg tablet 20 mg PO DAILY #90 tabs 03/30/21 trazodone 50 mg tablet 50 mg PO QHS sleep #90 tabs 03/30/21 metoprolol succinate 50 mg 50 mg PO DAILY #90 tabs 04/24/21 tablet,extended release 24 hr omeprazole 40 mg capsule,delayed 40 mg PO DAILY #90 caps 11/08/21 release terbinafine HCl 1 % topical cream 1 applic topical BID #30 grams 12/15/21 (Antifungal (terbinafine)) triamcinolone acetonide 0.1 % 1 applic topical BID #80 grams 01/10/22 topical ointment furosemide 40 mg tablet 40 mg PO DAILY #90 tabs 02/08/22 valsartan 160 mg tablet 160 mg PO DAILY #90 tabs 03/07/22 apixaban 5 mg tablet (Eliquis) 5 mg PO BID #180 tabs 04/27/22 Allergies Allergy/AdvReac Type Severity Reaction Status Date / Time No Known Allergies Allergy Verified 05/27/22 15:48 General Stated Complaint: Dizzy/Sync KANDACE: 3 PFSH All Active Problems Alcoholism (Acute) Syncope (Chronic) Azotemia (Acute) Syncope and collapse (Acute) Internal hemorrhoid, bleeding (Acute) Anticoagulant long-term use (Acute) Rectal bleeding (Acute) Urinary tract infection (Acute) Fungal infection (Acute) Posture abnormality (Acute) Bilateral lower extremity edema (Acute) Obstructive sleep apnea (Chronic) 01/2021-patient did not tolerate facemask-currently not being treated Polycythemia (Acute) Atrial fibrillation (Chronic) 12/2020, Chads-vasc 2 -3 Insomnia (Acute) On trazodone as of 01/2021 Sensorineural hearing loss, bilateral (Acute) Chronic rhinitis (Acute) HTN (hypertension) (Chronic) Diaphragmatic paralysis (Acute) chronic right hemidiaphragm H/O alcohol abuse (Acute 10/19/13) Hyperlipidemia (Acute 06/30/12) Kidney stone (Acute) 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 Lynn Status post total knee replacement (Acute) Medical History Incarcerated umbilical hernia Strangulated umbilical hernia Surgical History Colonoscopy - MAC 10/31/10;DR. ARJUN LYNN; MIXED TUBULAR AND SESSILE SERRATED ADENOMA Hemorrhoidectomy History of tonsillectomy and adenoidectomy Replacement of total knee joint RIGHT Family History Father Personal history of malignant neoplasm COLON FAMILY HISTORY Personal history of malignant neoplasm PROSTATE Brother Heart attack Social History Smoking/Tobacco Use Status: Never Second Hand Exposure: Yes Smoking risk assessment performed?: Yes Alcohol Intake: current Alcohol Intake frequency: a few times a month Alcohol type: hard liquor Drug use: Never Substance use type: does not use Caregiver/Support person: No Household members: spouse Housing: apartment Communication Needs: None Do you need help understanding health information?: Always Pets and animals: Yes Pets and animals: cat(s) Sexually active: Yes Do you think of yourself as: straight/heterosexual Current gender identity: male What is your relationship status?: How often do you talk on the phone with friends or family?: three or more times per week How often do you get together with friends or relatives?: three or more times per week How often do you attend latter day or scientologist services?: decline to answer Do you belong to any clubs or organized social groups?: no Panel score (0-1 are the most socially isolated patients): 2 What type of physical activity do you participate in: walking Duration: 30-45 minutes/day Frequency: 1-2 times per week Chery/Zoroastrian: No preference Seatbelt use: always Drive intox or ride w/intox long haul truck driver: No Do you feel safe at home: Yes Do you feel safe in your relationship?: Yes Exam Const General: cooperative, comfortable, no acute distress and intoxicated appearing Orientation: alert and oriented x3 HENMT Head: normal to inspection Other: uvula midline, moist mucous membranes Eyes Alignment and Position: alignment normal Pupils: PERRL Resp Effort & Inspection: normal respiratory effort Auscultation: clear to auscultation bilaterally Cardio Other: cardiac rate rhythm regular GI Inspection: normal to inspection Skin General skin exam: no rashes or lesions noted Neuro General: patient alert, patient oriented x3 and CN's II-XI intact bilaterally Cranial Nerves: CN's II-XI intact bilaterally and PERRL Cognition: normal cognition Speech: speech normal Sensory Exam: no sensory deficits noted Extrem Other: 2+ edema bilateral LE distal pulses intact Course Vital Signs Vital signs: Vital Signs Temperature 36.9 C 05/27/22 15:51 Pulse 98 H 05/27/22 15:51 Respiratory Rate 18 05/27/22 15:51 Blood Pressure 154/128 H 05/27/22 15:51 Pulse Oximetry 96 05/27/22 15:51 Temperature 36.9 C 05/27/22 15:51 Temperature Source Temporal Artery Scan 05/27/22 15:51 Pulse 98 H 05/27/22 15:51 Respiratory Rate 18 05/27/22 15:51 Respiratory Effort Normal, Non-Labored 05/27/22 15:46 Blood Pressure 154/128 H 05/27/22 15:51 Pulse Oximetry 96 05/27/22 15:51 Oxygen Delivery Method Room Air 05/27/22 15:51 Oxygen Flow Rate 0 05/27/22 15:51 Lab/Test Results Lab/Test Results: Laboratory Tests Range/Units 05/27/22 05/27/22 05/27/22 16:10 16:10 16:10 WBC (4.4-10.8) 10^3/uL 6.81 RBC (4.36-5.78) 10^6/uL 5.23 Hgb (13.5-17.5) g/dL 17.6 H Hct (40.0-50.0) % 50.9 H MCV (80-95) fL 97 H MCH (27.0-33.0) pg 33.7 H MCHC (32.0-36.0) % 34.6 RDW (11.8-14.1) % 13.3 Plt Count (130-400) 10^3/uL 200 MPV (8.0-11.0) fL 10.9 Immature Gran % 0.6 Neutrophils % 70.5 Lymphocytes % 14.1 Monocytes % 11.3 Eosinophils % 1.9 Basophils % 1.6 Nucleated RBC % (0.0-0.3) % 0.0 Absolute Neutrophils (1.2-6.7) 10^3/uL 4.80 Absolute Lymphocytes (1.2-3.4) 10^3/uL 0.96 L Absolute Monocytes (0.1-0.8) 10^3/uL 0.77 Absolute Eosinophils (0.0-0.7) 10^3/uL 0.13 Absolute Basophils (0.0-0.2) 10^3/uL 0.11 Sodium (136-145) mmol/L 144 Potassium (3.5-5.1) mmol/L 4.2 Chloride (98-107) mmol/L 106 Carbon Dioxide (21.0-32.0) mmol/L 24.9 Anion Gap (3-11) mmol/L 13.1 H BUN (7-18) mg/dL 13 Creatinine (0.70-1.30) mg/dL 1.6 H Est GFR (CKD-EPI 2020) (mL/min/1.73m2) 43.83 Glucose (74-106) mg/dL 89 Calcium (8.5-10.1) mg/dL 9.8 Total Bilirubin (0.2-1.0) mg/dL 1.0 AST (15-37) U/L 47 H ALT (16-63) U/L 39 Alkaline Phosphatase (46-116) U/L 104 Troponin I (<or=60) ng/L < 50 Total Protein (6.4-8.2) g/dL 7.8 Albumin (3.4-5.0) g/dL 4.2 TSH (0.36-3.74) uIU/mL 1.82 Ethyl Alcohol (<10) mg/dL 186.8 H PAWSS Have you Been Recently Intoxicated or Drunk Within the Last 30 days?: No Have you Ever Experienced Previous Episodes of Alcohol Withdrawal?: No Have you ever Experienced Withdrawal Seizures?: No Have you ever Experienced Delirium Tremens(DT)s?: No Have you ever undergone Alcohol Rehabilitation Treatment (i.e, inpt ot outpatient treatment programs)?: No Have you ever Experienced Blackouts?: No Have you ever Combined Alcohol with other Downers within the last 90 days?: No Have you ever Combined Alcohol with any other Substance of Abuse during the last 90 days?: No Positive Blood Alcohol level on Presentation? [PCS.BAL]: No Evidence of Increased Autonomic Activity (i.e. HR>120, tremor, sweating, agitation, nausea)?: No Result: 0
--- NOTE | 2022-05-27 17:03 | DI.VRAD_ITS ---
PROCEDURE INFORMATION: Exam: XR Chest Exam date and time: 05/27/2022 4:46 PM Age: 76 years old Clinical indication: Other: Syncope TECHNIQUE: Imaging protocol: Radiologic exam of the chest. Views: 1 view. COMPARISON: CR XR CHEST 2V PA LATERAL 03/09/2021 2:03 PM FINDINGS: Lungs: Ground-glass opacity in the inferior portion of the right lung zone may be due to atelectasis or focal airspace disease. Pleural spaces: Unremarkable. No pleural effusion. No pneumothorax. Heart/Mediastinum: Unremarkable. No cardiomegaly. Bones/joints: There are [id number] changes of the osseous structures. IMPRESSION: Focal finding in the inferior portion of the right lower lobe may be subsegmental atelectasis or early airspace disease. Dictated and Authenticated by: Alex Noland MD. Ordering:RACHEL Dotson MD
[2022-05-27] MEDS: ACETAMINOPHEN 1,000 MG/100 ML BTL 400 MG IVPB (17:05)
--- NOTE | 2022-05-27 17:17 | DI.VRAD_ITS ---
PROCEDURE INFORMATION: Exam: CT Head Without Contrast Exam date and time: 05/27/2022 4:35 PM Age: 76 years old Clinical indication: Syncope and collapse and other: Fall, hi, ETOH, syncope; Additional info: Best images possible due to PT. Motion TECHNIQUE: Imaging protocol: Computed tomography of the head without contrast. COMPARISON: No relevant prior studies available. FINDINGS: Brain: No acute intracranial hemorrhage.. There is moderate diffuse heterogeneity of the white matter attenuation, consistent with chronic white matter ischemic changes. Moderate cerebral atrophy Cerebral ventricles: No ventriculomegaly. Paranasal sinuses: Opacity in the right maxillary sinus may represent sinusitis Mastoid air cells: Visualized mastoid air cells are well aerated. Bones/joints: Unremarkable. No acute fracture. Soft tissues: Unremarkable. IMPRESSION: No acute intracranial hemorrhage.. PROCEDURE INFORMATION: Exam: CT Cervical Spine Without Contrast Exam date and time: 05/27/2022 4:35 PM Age: 76 years old Clinical indication: Syncope and collapse and other: Fall, hi, ETOH, syncope; Additional info: Best images possible due to PT. Motion TECHNIQUE: Imaging protocol: Computed tomography of the cervical spine without contrast. COMPARISON: CT CHEST PE CTA 07/16/2019 12:09 PM FINDINGS: Bones/joints: No acute fracture of the cervical spine. No subluxation or dislocation of the cervical spine. Intervertebral disc space narrowing C5 through C7 may represent degenerative disc disease.. Anterior osteophyte formation C3 through C7. Posterior osteophyte formation C3 through C7. Degenerative changes in the facets at multiple levels. Degenerative changes at C1/C2 Lungs: Lung apices are normal. Thyroid: The thyroid is unremarkable Soft tissues: Unremarkable. IMPRESSION: 1. No acute fracture of the cervical spine. 2. No subluxation or dislocation of the cervical spine. 3. Intervertebral disc space narrowing C5 through C7 may represent degenerative disc disease.. Dictated and Authenticated by: Karoline Brower MD. Ordering:RACHEL Dotson MD
[2022-05-27 18:59] LABS: Troponin I < 50 ng/L (<or=60)
== END 2022-05-27 19:35 | disposition home or self-care (01) ==
PROVIDERS: Emergency Provider Physician Assistant; PCP Nurse Practitioner Family
DX: R55 Syncope and collapse (principal); F10.229 Alcohol dependence with intoxication, unspecified; R79.89 Other specified abnormal findings of blood chemistry; Y90.6 Blood alcohol level of 120-199 mg/100 ml; R07.9 Chest pain, unspecified
CPT/HCPCS: 80053; 93005; 96361; 96374; 99284; 70450; 71045; 72125; 80320; 84443; 84484; 85025; 93010; J0131

== ENCOUNTER 2022-06-15 06:08 | Day surgery (SDC) | payer BC, MEDICARE, SELFPAY ==
--- NOTE | 2022-06-14 11:54 | W.PM.DSUDISC ---
Date of service: 06/15/22 Time of Service: 08:45 Discharge Plan Disposition Patient Disposition: Home Condition: Good Discharge Details Reason For Visit: hemorrhoid banding Attending Provider: Fe Estrada Primary Care Provider: Eduardo Hebert Home Meds and New Rx's Prescriptions: Continued Metamucil 3.4 gram/5.4 gram powder 1 tbsp PO DAILY Rx Instructions: mix into at least 8 oz of water or juice before administering metoprolol succinate 50 mg tablet extended release 24 hr 50 mg PO DAILY Qty: 90 3RF terbinafine HCl [Antifungal (terbinafine)] 1 % cream 1 applic topical BID Qty: 30 3RF Patient Comments: not taking trazodone 50 mg tablet 50 mg PO QHS Qty: 90 2RF atorvastatin 20 mg tablet 20 mg PO DAILY Qty: 90 3RF omeprazole 40 mg capsule,delayed release(DR/EC) 40 mg PO DAILY Qty: 90 3RF triamcinolone acetonide 0.1 % ointment 1 applic topical BID Qty: 80 1RF Patient Comments: not taking Rx Instructions: to affected area furosemide 40 mg tablet 40 mg PO DAILY Qty: 90 3RF valsartan 160 mg tablet 160 mg PO DAILY Qty: 90 3RF Held Eliquis 5 mg tablet 5 mg PO BID Qty: 180 3RF Hold Instructions: Resume on 06/25/22. f/u in clinic 05/22 and will decide when to resume Discharge Instructions Additional Instructions: Home Care Instructions after Rectal Surgery Pain control:? Ibuprofen 600mg 6hrs (take w/ food. Do not take on an empty stomach) and Tylenol 1000mg by mouth (ibuprofen 400-600mg) every 8 hours.? Do not take if you have ulcers or sensitivity to aspirin.? Do not take Tylenol if you have hepatitis or liver failure. Alternate the Tylenol and ibuprofen.? Take pain meds continuously for the first 72hrs.? After 72hrs, you can take as needed if you are having pain.? You can also use Dibucaine ointment for pain control- apply directly to surgical site. How to prevent constipation: The first bowel movement after surgery will be painful. Do not let yourself get constipated. Stay on a stool softener for the first two weeks after surgery. ?It is recommended that you use a fiber supplement (Metamucil, Citrucel) daily (1 tablespoon in 8 oz of water). If you do not have a bowel movement daily, use Milk of Magnesia or Miralax. You may have bleeding or drainage after rectal surgery; especially when you move your bowels. Use a sanitary napkin to collect the discharge. If you are passing large clots or having to change the pad more than every 4 hours, call the clinic or go to the ER. You may experience spasms in the rectal muscles. This is normal after surgery and last for about two weeks. They can become more intense with bowel movements. The best remedy is to soak in a bathtub of plain warm water- no Epsom salts, essential oil or soap. Or you can use a sitz bath. ? It takes about 10 minutes further the spasm to stop.? Do this after BM as well. It is ok to shower. Avoid soap on the surgical area. Use a pillow to sit on. Follow a mild bland diet. Avoid alcohol, spicy food, citrus, and tomatoes. Avoid strenuous activity (running, jogging, and power walking, swimming, weight lifting) for two weeks. No lifting over 20 pounds for 2 weeks. Activity:: see above Diet:: see above Discharge Orders Discharge Orders: Discharge Order (Routine); Ordered 06/15/22 Ordered By: Fe Estrada DS: Diagnosis Discharge Diagnosis (1) Internal hemorrhoid, bleeding: Status: Acute Asessment and Plan: The patient is doing well post-op from their [] surgery.? They are having no nausea or vomiting. They are tolerating liquids and a snack. The pt is not having any chest pain or SOB.? Their pain is adequately controlled. They have been able to urinate.? ?HEENT:? no eye pain/drainage/redness/swelling. Mild sore throat ?Cardio- NSR, no chest pain, BP stable- see VS record ?Pulm: no sob or productive cough. No hemoptysis ?Incision- dressing is c/d/i w/ no excessive bleeding or drainage ?I discussed with the patient the findings at the time of surgery and the patient?s progress. ?We reviewed expectations at home; what the patient could expect for recovery time, and in the post-operative period.? We discussed the importance of walking to avoid blood clots and pneumonia.? We discussed and reviewed the patient's post-operative wound care and dressing needs.?? We reviewed their step-pérez pain management plan, Rx called to the pharmacy of their choice.? We reviewed activity and limitations-see discharge instructions. We reviewed warning signs, and when to seek medical attention- see d/c instructions.?? Patient was given a postoperative follow-up appointment. Patient verbalized understanding of their postoperative instructions, how do to take care of themselves and their incision, and the pain management plan. Please see discharge instructions.? (2) Anticoagulant long-term use: Status: Acute (3) Rectal bleeding: Status: Acute
[2022-06-15 06:20] VITALS: BP 157/100; PULSE 64; RESP 17; TEMP 36.4; O2SAT 100
[2022-06-15] MEDS: LORazepam 0.5 MG TAB PO (06:30)
[2022-06-15] MEDS: Lidocaine/Prilocaine Cream 5 GM TUBE TP (06:31)
--- NOTE | 2022-06-15 06:57 | W.ANESPRE ---
General Info Date of Service Date Performed: 06/15/22 Height: 6 ft 1 in Weight: 119 kg Body Mass Index (BMI): 34.6 Surgical Procedure: Operation Date: 06/15/22 08:25 Proposed Procedure Side Surgeon p Internal Hemorrhoid Banding Fe Estrada, DO Meds Allergies and Home Medications Allergies Allergy/AdvReac Type Severity Reaction Status Date / Time acetaminophen [From Percocet] AdvReac Intermediate Other (See Verified 06/15/22 06:43 Comment) oxycodone [From Percocet] AdvReac Intermediate Other (See Verified 06/15/22 06:43 Comment) Home Medication Medication Instructions Recorded psyllium husk 3.4 gram/5.4 gram 1 tbsp PO DAILY 11/29/20 oral powder (Metamucil) atorvastatin 20 mg tablet 20 mg PO DAILY #90 tabs 03/30/21 trazodone 50 mg tablet 50 mg PO QHS sleep #90 tabs 03/30/21 metoprolol succinate 50 mg 50 mg PO DAILY #90 tabs 04/24/21 tablet,extended release 24 hr omeprazole 40 mg capsule,delayed 40 mg PO DAILY #90 caps 11/08/21 release terbinafine HCl 1 % topical cream 1 applic topical BID #30 grams 12/15/21 (Antifungal (terbinafine)) triamcinolone acetonide 0.1 % 1 applic topical BID #80 grams 01/10/22 topical ointment furosemide 40 mg tablet 40 mg PO DAILY #90 tabs 02/08/22 valsartan 160 mg tablet 160 mg PO DAILY #90 tabs 03/07/22 apixaban 5 mg tablet (Eliquis) 5 mg PO BID #180 tabs 04/27/22 Current Visit Medications: Current Medications Generic Name Dose Route Start Last Admin Trade Name Freq PRN Reason Stop Dose Admin Lidocaine/Prilocaine 5 gm 06/15/22 06:00 06/15/22 06:31 Lidocaine/Prilocaine Cream 5 Gm Tube TP 1 supp DIRECTED GABBY Administration Lorazepam 0.5 mg 06/15/22 06:00 06/15/22 06:30 Lorazepam 0.5 Mg Tab PO 06/15/22 16:00 0.5 mg PREOP GABBY Administration PFSH Active Problems Active Problems: Problem Status Onset Code 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 Polyp of colon K63.5 Kidney stone N20.0 Hyperlipidemia 06/30/12 E78.5 H/O alcohol abuse 10/19/13 F10.11 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 HTN (hypertension) I10 Chronic rhinitis J31.0 Sensorineural hearing loss, bilateral H90.3 Insomnia G47.00 Atrial fibrillation I48.91 Polycythemia D75.1 Obstructive sleep apnea G47.33 Bilateral lower extremity edema R60.0 Posture abnormality R29.3 Fungal infection B49 Urinary tract infection N39.0 Rectal bleeding K62.5 Anticoagulant long-term use Z79.01 Internal hemorrhoid, bleeding K64.8 Syncope and collapse R55 Alcoholism F10.20 Syncope R55 Azotemia R79.89 Medical History Medical History Incarcerated umbilical hernia Strangulated umbilical hernia Surgical History Surgical History (Updated 06/15/22 @ 06:38 by Bridget Huerta RN) Colonoscopy - MAC 10/31/10;DR. ARJUN LYNN; MIXED TUBULAR AND SESSILE SERRATED ADENOMA Hemorrhoidectomy History of hernia repair History of tonsillectomy and adenoidectomy Replacement of total knee joint RIGHT Tobacco Smoking/Tobacco Use Status: Never Passive smoking exposure: Yes Second hand exposure: Yes Alcohol Alcohol Intake: current Alcohol intake frequency: 0-2 drinks per day Alcohol type: hard liquor Substance Use Substance use: Never Substance use type: does not use Vital Signs and Lab Results Vital Signs Most Recent Vital Signs in EMR: Most Recent Vital Signs Temp Pulse Resp BP Pulse Ox 36.4 C L 64 17 157/100 H 100 06/15/22 06:20 06/15/22 06:20 06/15/22 06:20 06/15/22 06:20 06/15/22 06:20 Lab Results Blood Type / Crossmatch: No Data to Display Complete Blood Count: White Blood Count 6.81 10^3/uL (4.4-10.8) 05/27/22 16:10 Red Blood Count 5.23 10^6/uL (4.36-5.78) 05/27/22 16:10 Hemoglobin 17.6 g/dL (13.5-17.5) H 05/27/22 16:10 Hematocrit 50.9 % (40.0-50.0) H 05/27/22 16:10 Platelet Count 200 10^3/uL (130-400) 05/27/22 16:10 Complete Metabolic Panel: Sodium 144 mmol/L (136-145) 05/27/22 16:10 Potassium 4.2 mmol/L (3.5-5.1) 05/27/22 16:10 Chloride 106 mmol/L (98-107) 05/27/22 16:10 Carbon Dioxide 24.9 mmol/L (21.0-32.0) 05/27/22 16:10 BUN 13 mg/dL (7-18) 05/27/22 16:10 Creatinine 1.6 mg/dL (0.70-1.30) H 05/27/22 16:10 Est GFR (CKD-EPI 2020) 43.83 (mL/min/1.73m2) 05/27/22 16:10 Calcium 9.8 mg/dL (8.5-10.1) 05/27/22 16:10 Albumin 4.2 g/dL (3.4-5.0) 05/27/22 16:10 Glucose 89 mg/dL (74-106) 05/27/22 16:10 Liver Function Panel: Alanine Aminotransferase (ALT/SGPT) 39 U/L (16-63) 05/27/22 16:10 Aspartate Amino Transf (AST/SGOT) 47 U/L (15-37) H 05/27/22 16:10 Coagulation Panel: No Data to Display Cardiac Panel: Troponin I < 50 ng/L (<or=60) 05/27/22 Arterial Blood Gas: No Data to Display Venous Blood Gas: No Data to Display Pancreas Panel: No Data to Display Thyroid Panel: Thyroid Stimulating Hormone (TSH) 1.82 uIU/mL (0.36-3.74) 05/27/22 16:10 Infectious Disease: No Data to Display Blood Cultures: No Data to Display Toxicology Panel: Ethyl Alcohol Level 186.8 mg/dL (<10) H 05/27/22 16:10 Anesthesia Assessment and Plan Anesthesia History Personal History: No History of Anesthesia Complications Family History: No Family History of Anesthesia Complications Exercise Tolerance Exercise Tolerance: Metabolic Equivalents<4 Pertinent Negatives Pertinent Negatives: No Symptoms of GERD, No Major Pulmonary Symptoms or Complaints and No History of CVA/TIA Cardiac & Pulmonary Exam Cardiac Exam: Normal S1/S2 Heart Sounds Pulmonary Exam: Clear Bilateral Breath Sounds Implantable Cardiac Device Does patient have a Pacemaker or an ICD?: No Airway Exam Known Difficult Airway: No Mallampati Class: 1 Mouth Opening: Normal (> 3cm) Thyromental Distance: Greater than 3 cm Neck Range of Motion: Limited ROM (recent fall. ) Neck Circumference: Normal Teeth Condition: Normal Dentition (normal wear) ASA Classification ASA Score: ASA 3 Emergency Case?: No NPO Status NPO Status: NPO Clears >2 hours, Solids >8 hours Anesthesia Plan Resuscitation Status: Full Code Anesthesia Technique: General Anesthesia Airway Planned: Natural Airway Monitors Used: Standard Monitors
[2022-06-15] MEDS: Lactated Ringers 1,000 ML 80 ML IV (07:08)
[2022-06-15 07:22] VITALS: BMI 34.6
[2022-06-15 08:23] VITALS: BP 155/85; PULSE 64; RESP 16; TEMP 36.6; O2SAT 98
--- NOTE | 2022-06-15 08:38 | W.PM.OP ---
Date of service: 06/15/22 Time of Service: 08:38 Operative Note Operative Note DATE OF PROCEDURE: 06/15/22 PRE-OP DIAGNOSIS: Internal hemorrhoid bleeding POST-OP DIAGNOSIS: same PROCEDURE: Hemorrhoidal banding 3 SURGEON: Fe Estrada ANESTHESIA TYPE: Other Refer to Anesthesia Record ESTIMATED BLOOD LOSS: 0 PATHOLOGY: none sent COMPLICATIONS: None Patient was transported to: same day Patient's condition: stable Procedure Description: PROCEDURE NOTE: The patient presents with symptomatic grade 2 hemorrhoids, unresponsive to maximal medical therapy, requesting rubber band ligation of his/her hemorrhoid disease.? All risks, benefits and alternative forms of therapy were described and informed consent was obtained, explaining risks and benefits of the procedure including but not limited to: bleeding/infection/recurrence/complications of anesthesia/need for repeat procedure. In the Left Lateral Decubitus position anoscopic examination revealed grade 2 hemorrhoids in the ?RP/7 o?clock, LL/3 o?clock .? There are no other masses noted.? Good sphincter tone. No rectal prolapse. The decision was made to band the[? RA, RP, LL] internal hemorrhoid, and suction pipe fitter helper was used to perform band ligation without complication.? Digital anorectal examination was then performed to assure proper positioning of the band, and to adjust the banded tissue as required.? The patient was discharged home without pain or bleeding. ?Instructions were given in wound care/activity/warning signs and a pain management plan, as well as instructions to avoid constipation. along with follow-up instructions.? The patient will return in 2 weeks for follow-up and possible additional banding as required. No complications were encountered and the patient tolerated the procedure well.
[2022-06-15 08:50] VITALS: BP 135/73; PULSE 64; RESP 16; TEMP 36.6; O2SAT 99
== END 2022-06-15 09:20 | disposition home or self-care (01) ==
PROVIDERS: PCP Nurse Practitioner Family; Visit Provider Surgery
PROC: (CPT 46221; principal; 2022-06-15 08:15)
DX: K64.8 Other hemorrhoids (principal); I10 Essential (primary) hypertension; G47.33 Obstructive sleep apnea (adult) (pediatric); E78.5 Hyperlipidemia, unspecified
CPT/HCPCS: 46221

== ENCOUNTER 2022-08-21 01:17 | Outpatient (CLI) | payer BC, MEDICARE, SELFPAY ==
--- NOTE | 2022-08-21 07:15 | DI.RAD_ITS ---
Exam(s) XR THORACIC SPINE COMPLETE EXAM: XR THORACIC SPINE COMPLETE CLINICAL HISTORY: upper back pain,M54.9. TECHNIQUE: 2D digital imaging was performed. COMPARISON: CT CT CHEST WO from 08/21/2022 FINDINGS: 3 views No evidence of obvious fracture or listhesis. Large anterior osteophytes are noted in the lower thor acic spinal column. No osseous lesions evident. IMPRESSION: As above. DATA REPOSITORY: RADIATION DOSE DELIVERED:
--- NOTE | 2022-08-21 07:15 | DI.CT_ITS ---
Exam(s) CT CHEST WO EXAM: CT CHEST WO CLINICAL HISTORY: chest tightness, on eliquis,UPPER BACK PAIN, M54.9. TECHNIQUE: Multi planar reconstructions were performed. CONTRAST MATERIAL: None COMPARISON: CR,XR XR CHEST 1V IN DI DEPT from 05/27/2022 FINDINGS: CHEST: LUNGS: Right hemidiaphragm is now elevated. There is platelike atelectasis in the right lower lobe j ust above the elevated right hemidiaphragm. No other right lung findings and no pleural effusion. N o significant focal left lung findings. No pleural effusion on the left. No findings in the trachea and mainstem bronchi. MEDIASTINUM: There is no obvious hilar nor mediastinal adenopathy. Visualized thyroid unremarkable.Sm all hiatal hernia and there appears to be some thickening of the lower esophagus wall-GE junction wal l. Cannot exclude neoplasm at this level. No surrounding adenopathy evident. CARDIAC: Heart size upper normal. No pericardial effusion.Caliber of the thoracic aorta is within no rmal limits. VISUALIZED UPPER ABDOMEN:There is a collection between the stomach and spleen which exhibits a fluid level, this measuring 6.5 by 6.4 cm. Possibly represents gastric diverticulum at the fundus level. Difficult to assess without oral contrast. OSSEOUS: No significant osseous lesions.No fractures. IMPRESSION: 1. Compared to the chest x-ray of 05/27/2022 there is now significant elevation of the right hemidiap hragm and there is platelike atelectasis in the right lung base just above the elevated right hemidia phragm. No other pulmonary findings and there are no pleural effusions nor intrathoracic adenopathy. 2. Thickening of the esophagus and GE junction noted. Cannot exclude neoplasm. 3. There is also a 6.5 x 6.4 cm collection between the spleen and stomach. It is difficult to determ ine without oral contrast if this is a true abnormal separate collection versus gastric fundus divert iculum. RADIATION DOSE DELIVERED: 587.35mGy.cm Total DLP DATA REPOSITORY: All CT scans at this facility are submitted to the National Radiology Data Registry (NRDR) Dose Index Registry (DIR) with the [employer] ([employer]). RADIATION OPTIMIZATION: All CT scans at this facility use at least one of these dose optimization te chniques: automated exposure control; mA and/or kV adjustment per patient size (includes targeted exa ms where dose is matched to clinical indication); or iterative reconstruction.
== END 2022-08-21 01:37 ==
PROVIDERS: PCP Nurse Practitioner Family; Visit Provider Nurse Practitioner Family
DX: M54.6 Pain in thoracic spine (principal); M25.78 Osteophyte, vertebrae; R07.89 Other chest pain; J98.6 Disorders of diaphragm; J98.11 Atelectasis; K22.89 Other specified disease of esophagus; Z79.01 Long term (current) use of anticoagulants
CPT/HCPCS: 71250; 72072

== ENCOUNTER 2022-09-25 10:07 | Day surgery (SDC) | payer BC, MEDICARE, SELFPAY ==
--- NOTE | 2022-09-24 19:41 | PDOC.DSDIS_ITS ---
Date of service: 09/25/22 Time of Service: 13:33 Discharge Plan Disposition Patient Disposition: Home Condition: Good Discharge Details Reason For Visit: stomach scope Attending Provider: Fe Estrada Primary Care Provider: Eduardo Hebert Home Meds and New Rx's Prescriptions: New pantoprazole [Protonix] 40 mg tablet,delayed release (DR/EC) 40 mg PO QAM Qty: 30 12RF sucralfate [Carafate] 1 gram tablet 1 g PO QHS Qty: 30 12RF Rx Instructions: take at bedtime Continued terbinafine HCl [Antifungal (terbinafine)] 1 % cream 1 applic topical BID PRN Patient Comments: not taking trazodone 50 mg tablet 50 mg PO QHS PRN (Reason: sleep) Metamucil 3.4 gram/5.4 gram powder 1 tbsp PO DAILY Rx Instructions: mix into at least 8 oz of water or juice before administering triamcinolone acetonide 0.1 % ointment 1 applic topical BID Qty: 80 1RF Patient Comments: not taking Rx Instructions: to affected area furosemide 40 mg tablet 40 mg PO DAILY Qty: 90 3RF valsartan 160 mg tablet 160 mg PO DAILY Qty: 90 3RF metoprolol succinate 50 mg tablet extended release 24 hr 50 mg PO DAILY Qty: 90 3RF atorvastatin 20 mg tablet 20 mg PO DAILY Qty: 90 3RF latanoprost 0.005 % drops 1 drp ophthalmic (eye) DAILY Patient Comments: INSTILL 1 DROP INTO BOTH EYES EVERY MORNING Simbrinza 1-0.2 % drops,suspension 1 drp ophthalmic (eye) BID Patient Comments: INSTILL 1 DROP INTO BOTH EYES TWO TIMES A DAY DIRECTED Held Eliquis 5 mg tablet 5 mg PO BID Qty: 180 3RF Hold Instructions: Resume on 09/26/22. resume in am 09/26 Discontinued omeprazole 40 mg capsule,delayed release(DR/EC) 40 mg PO DAILY Qty: 90 3RF Discharge Instructions Instructions: Gastritis (GEN) Additional Instructions: Post EGD Instruction ?You had anesthesia for your EGD/stomach scope today.? For your safety, please do the following for the next twenty-four (24) hours: Do Not operate a motor vehicle (car, truck, motorcycle, etc.) Do Not drink alcoholic beverages or use any recreational drugs for the first 24 hours or while taking pain medications. The medications in your body may have a reaction that can be dangerous. Do Not make any important decisions or sign any important papers You have just had a gastroscopy (EGD) or upper GI tract examination. It is important for your smooth recovery that you carefully follow the recommendations below. Do not hesitate to call if any questions should arise about your anesthesia, condition, or care. -Symptoms you may experience during the next 24 hours: ?1. Mild abdominal pain or excessive gas or a bloated feeling which improves with rest, liquids, eating? slightly, and walking as tolerated. 2. Drowsiness and/or forgetfulness because of the medications you were given. ?3. Throat numbness for about 1 hour. 4. A sore throat which you can treat with throat lozenges or by gargling with salt water 4-5 times a day. 5. Redness at the site of your IV which you can treat with warm compresses. SPECIAL INSTRUCTIONS: 1. You may resume your previous diet in one hour. We recommend a light meal to start, then progress as tolerated. 2. Restart regular medications in one hour. 3. No aspirin or non-steroidal containing medication for three days. 4. No lifting over 20 pounds or strenuous activity for the first 24 hours after your procedure. After 24 hours there are no restrictions on your activity, but you may feel fatigued for a few days. Findings: -hiatal hernia -gastritis -Medications: -protonix -carafate -Continue to follow lifestyle modifications: No alcohol, tobacco products, Aspirin or NSAID's (ibuprofen, Motrin, Naprosyn, aleve, etc).? Try to limit/avoid:? soda pop/any carbonated beverages, caffeine (including tea & chocolate), and acidic foods, (tomatoes, citrus, onions, peppermints) spicy or fried/fatty foods. Do not lie down for 30 minutes after eating, and do not eat 2 hours prior to bedtime. Avoid wearing tight fitting clothing/ belts. Follow up: -My office will send a letter with the results of your biopsy?s in 2-3wks time. Call the office at [phone] (Office) or [phone] (Hospital), or go to the ER right away if you notice any of the followin. Vomiting blood and /or ?coffee ground? material. ?2. Worsening of abdominal pain or cramping. ?3. Trouble with breathing, cough, and/or fever (temperature above 101.5 F). 4. Increasing pain with swallowing. ?5. Chest pain. 6. Any new symptoms. 7. Worsening of the redness at the IV site Activity:: see above Diet:: see above Discharge Orders Discharge Orders: Discharge Order (Routine); Ordered 09/25/22 Ordered By: Fe Estrada DS: Diagnosis Discharge Diagnosis (1) Status post total knee replacement: Status: Acute (2) Polyp of colon: Status: Acute (3) Kidney stone: Status: Acute (4) Hyperlipidemia: Status: Acute (5) H/O alcohol abuse: Status: Acute (6) Diaphragmatic paralysis: Status: Acute (7) HTN (hypertension): Status: Chronic (8) Chronic rhinitis: Status: Acute (9) Atrial fibrillation: Status: Chronic (10) Polycythemia: Status: Acute (11) Obstructive sleep apnea: Status: Chronic (12) Bilateral lower extremity edema: Status: Acute (13) Thickening of esophagus: Status: Acute (14) Abdominal fluid collection: Status: Acute (15) Bile reflux gastritis: Status: Acute (16) Hiatal hernia: Status: Chronic Asessment and Plan: Patient is seen and examined after they are endoscopy.? Patient has minimal sore throat.? They have been able to tolerate liquids.? They do not have any nausea vomiting.? They are not having any chest pain or shortness of breath.? They have been able to pass gas and are not having any abdominal pain or distention.? They have not vomited any blood.? The vital signs have been stable-see nursing notes. We discussed findings on their endoscopy. We reviewed the importance of lifestyle modification-see discharge instructions We reviewed any new medications that the patient may be prescribed-see discharge instructions Patient will either be sent a letter with the biopsy results or follow-up in the office-see discharge instructions. Patient was given explicit instructions to follow-up regarding post endoscopy- refer to discharge Patient verbalized understanding and discharged in stable and satisfactory condition.? See nursing notes.
--- NOTE | 2022-09-24 19:43 | W.PM.ENDDOP ---
Date of service: 09/25/22 Time of Service: 12:38 Endoscopy Report DATE OF PROCEDURE: 09/25/22 PRE-OP DIAGNOSIS: thickening of esophagus/fluid collection b/t stomach & spleen SURGEON: Fe Estrada ANESTHESIA TYPE: General:No Airway ESTIMATED BLOOD LOSS: 1 PATHOLOGY: other COMPLICATIONS: None DISPOSITION: same day PROCEDURE DESCRIPTION: After informed consent was obtained the patient was take to the procedure room and placed in a supine position. Monitors were applied and a time out was done. The patients name, date of , procedure type, allergies to medications and metal in their body was reviewed. A bite block was placed and the patient was sedated. Once sedated and comfortable the gastroscope was advanced through the oropharynx which was grossly normal into the esophagus. The proximal and mid-esophagus were normal. In the distal esophagus there was no: Varices/diverticula/stricture. He does have a 4 cm sliding-type hiatal hernia. He does have esophagitis at the GE junction with what looks like could be a tongue of Miles's is 1 cm in length at the 11 o'clock position. Biopsies are taken. The GE junction is at 40 cm. The hiatus is at 44 cm. The scope was advanced into the stomach and through the pylorus into the 3rd portion of the duodenum. The duodenum was noted to be normal. 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 There is also some erythema and edema within the pyloric channel. A biopsy is taken of this as well. the scope was retracted back into the stomach and biopsies were done to rule out H. pylori. Upon entering stomach, it is noted that he does have gross bile refluxing into the stomach. There is some moderate gastritis in a diffuse pattern at the antrum. There are no ulcers. the scope was retroflexed. The cardia and fundus were noted to be normal. The scope was retracted back into the esophagus and biopsies were done of the GE junction to rule out Miles's. The Z line was irregular. the scope was removed and the patient was woken up and taken back to [facility] in stable condition.
[2022-09-25 10:11] VITALS: BP 138/115; PULSE 87; RESP 20; TEMP 36.3; O2SAT 97
[2022-09-25 10:30] VITALS: BP 138/93
--- NOTE | 2022-09-25 11:08 | W.ANESPRE ---
General Info Date of Service Date Performed: 09/25/22 Height: 6 ft 1 in Weight: 120.8 kg Body Mass Index (BMI): 35.1 Surgical Procedure: Operation Date: 09/25/22 10:35 Proposed Procedure Side Surgeon p Gastroscopy Fe Estrada, DO Meds Allergies and Home Medications Allergies Allergy/AdvReac Type Severity Reaction Status Date / Time oxycodone [From Percocet] AdvReac Intermediate Other (See Verified 09/25/22 11:01 Comment) Home Medication Medication Instructions Recorded psyllium husk 3.4 gram/5.4 gram 1 tbsp PO DAILY 11/29/20 oral powder (Metamucil) omeprazole 40 mg capsule,delayed 40 mg PO DAILY #90 caps 11/08/21 release triamcinolone acetonide 0.1 % 1 applic topical BID #80 grams 01/10/22 topical ointment furosemide 40 mg tablet 40 mg PO DAILY #90 tabs 02/08/22 valsartan 160 mg tablet 160 mg PO DAILY #90 tabs 03/07/22 apixaban 5 mg tablet (Eliquis) 5 mg PO BID #180 tabs 04/27/22 metoprolol succinate 50 mg 50 mg PO DAILY #90 tabs 06/18/22 tablet,extended release 24 hr atorvastatin 20 mg tablet 20 mg PO DAILY #90 tabs 06/25/22 terbinafine HCl 1 % topical cream 1 applic topical BID PRN 09/13/22 (Antifungal (terbinafine)) trazodone 50 mg tablet 50 mg PO QHS PRN sleep 09/13/22 brinzolamide 1 %-brimonidine 0.2 % 1 drp ophthalmic (eye) BID 09/21/22 eye drops,suspension (Simbrinza) latanoprost 0.005 % eye drops 1 drp ophthalmic (eye) DAILY 09/21/22 Current Visit Medications: Current Medications Generic Name Dose Route Start Last Admin Trade Name Freq PRN Reason Stop Dose Admin Hyoscyamine Sulfate 0.125 mg 09/25/22 07:11 Hyoscyamine 0.125 Mg Sl/Oral/Chew SL 10/25/22 07:10 DIRECTED PRN Ringer's Solution 1,000 mls @ 80 mls/hr 09/18/22 06:00 IV 10/17/22 23:59 INFUSION GABBY Ringer's Solution 1,000 mls @ 80 mls/hr 09/25/22 06:00 IV 10/24/22 23:59 INFUSION COUNTS INCLUDE 234 BEDS AT THE [facility] IV Miscellaneous Supplies 1 each 09/18/22 06:00 Iv Access IV 10/17/22 23:59 DIRECTED COUNTS INCLUDE 234 BEDS AT THE [facility] IV Miscellaneous Supplies 1 each 09/25/22 06:00 Iv Access IV 10/24/22 23:59 DIRECTED COUNTS INCLUDE 234 BEDS AT THE [facility] Ondansetron HCl 4 mg 09/25/22 07:11 Ondansetron 4 Mg/2 Ml Vial IVP 10/25/22 07:10 Q4H PRN PRN Nausea / Vomiting Sodium Chloride 0 ml 09/18/22 06:00 Normal Saline Flush 10 Ml Syr IV 10/17/22 23:59 PRN PRN Sodium Chloride 0 ml 09/18/22 06:00 Normal Saline 10 Ml Vial IJ 10/17/22 23:59 DIRECTED PRN Sodium Chloride 0 ml 09/25/22 06:00 Normal Saline Flush 10 Ml Syr IV 10/24/22 23:59 PRN PRN Sodium Chloride 0 ml 09/25/22 06:00 Normal Saline 10 Ml Vial IJ 10/24/22 23:59 DIRECTED PRN Sterile Water 0 ml 09/18/22 06:00 Water,Injection,Sterile 10 Ml Vial IJ 10/17/22 23:59 DIRECTED PRN Sterile Water 0 ml 09/25/22 06:00 Water,Injection,Sterile 10 Ml Vial IJ 10/24/22 23:59 DIRECTED PRN PFSH Active Problems Active Problems: Problem Status Onset Code 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 Polyp of colon K63.5 Kidney stone N20.0 Hyperlipidemia 06/30/12 E78.5 H/O alcohol abuse 10/19/13 F10.11 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 HTN (hypertension) I10 Chronic rhinitis J31.0 Sensorineural hearing loss, bilateral H90.3 Insomnia G47.00 Atrial fibrillation I48.91 Polycythemia D75.1 Obstructive sleep apnea G47.33 Bilateral lower extremity edema R60.0 Posture abnormality R29.3 Fungal infection B49 Rectal bleeding K62.5 Anticoagulant long-term use Z79.01 Internal hemorrhoid, bleeding K64.8 Syncope and collapse R55 Upper back pain M54.9 Upper back pain on left side M54.9 Thickening of esophagus K22.89 Abdominal fluid collection R18.8 Medical History Medical History Incarcerated umbilical hernia Strangulated umbilical hernia Urinary tract infection Medical History Comments:: 3-4 drinks (liquor) daily Surgical History Surgical History Colonoscopy - MAC 10/31/10;DR. ARJUN LYNN; MIXED TUBULAR AND SESSILE SERRATED ADENOMA Hemorrhoidectomy History of hernia repair History of tonsillectomy and adenoidectomy Replacement of total knee joint RIGHT Tobacco Smoking/Tobacco Use Status: Never Passive smoking exposure: Yes Second hand exposure: Yes Alcohol Alcohol Intake: current Alcohol intake frequency: 3 or more drinks per day Alcohol type: hard liquor Substance Use Substance use: Never Substance use type: does not use Vital Signs and Lab Results Vital Signs Most Recent Vital Signs in EMR: Most Recent Vital Signs Temp Pulse Resp BP Pulse Ox 36.3 C L 87 20 138/93 H 97 09/25/22 10:11 09/25/22 10:11 09/25/22 10:11 09/25/22 10:30 09/25/22 10:11 Lab Results Blood Type / Crossmatch: No Data to Display Complete Blood Count: No Data to Display Complete Metabolic Panel: No Data to Display Liver Function Panel: No Data to Display Coagulation Panel: No Data to Display Cardiac Panel: No Data to Display Arterial Blood Gas: No Data to Display Venous Blood Gas: No Data to Display Pancreas Panel: No Data to Display Thyroid Panel: No Data to Display Infectious Disease: No Data to Display Blood Cultures: No Data to Display Toxicology Panel: No Data to Display Imaging and Studies Imaging and Studies Study information below may be from another EMR and interpreted by another provider. Please see original notes in EMR for more complete details. EKG Summary: EKG PATIENT NAME: Chaka Swartz #: [id number] ORDERING PROVIDER: Shamar Clement M.D. PRIMARY CARE PROVIDER:EDUARDO ROTHMAN NP DATE/TIME OF SERVICE: 05/27/22 1554 : 4PERFORMING LOCATION: ER APPROVED REPORT Exam: Resting ECG Reason for Exam: chest pain Patient Location: E HR:92 bpm ECG Measurements Heart Rate 92 AXIS OK [id number] P [id number] QRSd 157 QRS 80 QT 402 T2 QTc 497 Conclusion Atrial fibrillation...V-rate 82-130, irreg A-activity Right bundle branch block...QRSd>120, terminal axis(90,270) <Electronically signed by SHAMAR CLEMENT MD in OV> E-Sign Date: 05/27/22 E-Sign Time: 1608 ADDENDUM APPROVED REPORT Exam: Resting ECG Reason for Exam: chest pain Patient Location: E HR:92 bpm ECG Measurements Heart Rate 92 AX[place] [id number] P [id number] QRSd 157 QRS 80 QT 402 T2 QTc 497 Conclusion Atrial fibrillation...V-rate 82-130, irreg A-activity Right bundle branch block...QRSd>120, terminal axis(90,270) I have reviewed and I agree with the emergency room physician's ECG interpretation. Electronically signed by: <Electronically signed by Vandana Vazquez M.D. in OV> 05/29/22 0853 Cosigned by: Echocardiogram Summary: Patient Name: Chaka Swartz #: [id number]: DI Ordering Provider: Danae Rodriguez #: [id number]: PO WHITTI Primary Care Provider: Eduardo Rothman NPDate of Exam: 01/09/21Sex: M Admission Date: 01/09/21 : 1945 Age: 75 APPROVED REPORT EXAM: Comprehensive 2D, Doppler, and color-flow Echocardiogram Patient Location: Out-Patient [employer] [employer] Operator: Mary Lofton RDCS (AE) Indications: New onset A Fib Other Information Study Quality: Adequate Conclusion Normal left ventricular wall thickness and chamber size. Left ventricular systolic function is borderline normal with an estimated ejection fraction of 50 to 55%. There are no segmental wall motion abnormalities Normal right ventricular size and systolic function The left atrium is moderately dilated. The right atrium is mildly dilated The aortic valve is sclerotic and probably trileaflet, without stenosis or regurgitation Moderate mitral annular calcification. Trace mitral regurgitation Normal tricuspid valve with trace to mild regurgitation. Estimated right ventricular systolic pressure is normal Dilated ascending aorta measuring 3.88 cm Wall motion Left Ventricle The left ventricle is normal size. Left ventricular systolic function is borderline normal There is normal left ventricular wall thickness. There are no segmental wall motion abnormalities There is no ventricular septal defect visualized. LVEF is 50-55%. Right Ventricle The right ventricle is normal size. The right ventricular systolic function is normal. The RVSP is 21.7 mmHg. Atria Left atrium is moderately dilated. Right atrium is mildly dilated. The interatrial septum is intact with no evidence for an atrial septal defect. Aortic Valve Aortic valve is moderately sclerotic, probably trileaflet There is no aortic valvular stenosis. No aortic regurgitation is present. Mitral Valve Moderate mitral annular calcification. No evidence of mitral valve stenosis. Trace mitral regurgitation. Tricuspid Valve The tricuspid valve is normal in structure. There is no tricuspid valve stenosis. Trace to mild tricuspid regurgitation. Pulmonic Valve The pulmonary valve is normal in structure. There is no pulmonic valvular stenosis. There is no pulmonic valvular regurgitation. Great Vessels Aortic root is upper normal in size. The ascending aorta is mildly dilated. Aortic arch is not well visualized. IVC is normal in size and collapses >50% with inspiration. Pericardium There is no pericardial effusion. 2D Dimensions IVSD d PLAX 0.89 cm M: 0.6-1.2LV Vol A2C d MOD 89.0 mL LVPW d PLAX 0.90 cm M: 0.6 - 1.2LV Vol A4C d MOD 104.1 mL LVID d PLAX 4.85 cm M: 4.2 - 5.8LA vol/ BSA A2C s A-L32.3 mL/m2 LVDs 3.65 cm M: 2.5 - 4.0LA vol/ BSA A4C s A-L45.2 mL/m2 Ao Root d 3.77 cm M: 3.1 - 3.7LA Vol/ BSA Biplane s A-L 41.6 mL/m2 RA Area A4C26.89 cm2LA Area A4C s MOD 31.46 cm2 RA Vol/ BSA A4C s A-L 41.8 mL/m2LA Area A2C s MOD 24.38 cm2 Ao Asc Diam d 3.88 cm M: 2.6 - 3.4LV EF A4C MOD 50.8 % LV EF Teichholz 47.9 %LV EF A2C MOD 50.4 % LVEF (Good's)51.26 % M: 52 - 72LV EF Biplane MOD 51.3 % LV Fxtbwr33.47 mL M: 62 - 268ZQ91.77 mL LV Volume Index28.01 mL/m2 M: 34 - 74SV Index20.45 mL/m2 LV Vol Biplane MOD 99.0 mL FS24.10 % M-Mode TAPSE 2.18 cm (M/F) >1.7 LV Diastology MV E' medial0.103 (>0.07 m/s)MV E Vmax 0.89 (0.4-1.3 m/s) LV E/e MED8.65 (<14) MV E' lateral0.104 (>0.1 m/s) LV E/e LAT8.50 (<14) MV E/E' medial 8.67 MV E/E' lateral8.53 Aortic Valve LVOT Area3.25 cm2AoV Area Vmax1.50 cm2 LVOT Vmax 0.87 m/sAoV Area/ BSA (Vmax)0.61 cm2/m2 LVOT Mean Konstantin.0.61 m/sAVA Mean Konstantin.1.36 cm2 LVOT Peak Grad 3.0 mmHgAVA Mean Konstantin. Index0.55 cm2/m2 LVOT Mean Grad 1.7 mmHg LVOT VTI0.164 m LVOT Diam s 2.00 cm AoV Vmax1.88 m/s Velocity Ratio 0.46 AoV Mean Konstantin.1.47 m/s AoV Peak Grad14.1 mmHg LVOT SV 53.13 mL AoV Mean Grad9.2 mmHg AoV VTI0.370 m AoV Area VTI1.43 cm2 AoV Area/ BSA (VTI)0.58 cm/m2 Mitral Valve MV DT 184 (160-240 msec) MV PHT53 msec MV Area PHT 4.13 cm2 MV VTI 0.166 m MV Area VTI 3.20 (4.0-6.0 cm2) Pulmonary Valve PV Vmax 0.80 (0.5-1.5 m/s)RVOT Peak Gr.1.27 mmHg PV Peak Grad 2.6 mmHgRVOT Mean Gr.0.65 mmHg PV Mean Grad 1.3 mmHgRVOT VTI0.076 m PV VTI 0.123 mRVOT Vmax 0.56 m/s Tricuspid Valve TR Peak Grad 18.6 mmHgTR Vmax 2.16 m/s RA Pressure 3.00 mmHg RVSP (TR) 21.7 mmHg Ordered By: Danae Rodriguez CC: Dictated By: Vandana Vazquez M.D. 01/10/21 0750 <Electronically signed by Vandana Vazquez M.D. in [place]> 01/10/21 0814 Transcribed By: Vandana Vazquez MD This is privileged, confidential information intended only for the provider named. Any use or distribution by any person other than this provider is strictly prohibited. If you receive this report in error, please notify us immediately at [phone] and return the original report to us at the address above. Thank-you. Anesthesia Assessment and Plan Anesthesia History Personal History: No History of Anesthesia Complications Family History: No Family History of Anesthesia Complications Exercise Tolerance Exercise Tolerance: Metabolic Equivalents<4 Pertinent Negatives Pertinent Negatives: No Symptoms of GERD Cardiac & Pulmonary Exam Cardiac Exam: Heart Murmur Present Pulmonary Exam: Clear Bilateral Breath Sounds Implantable Cardiac Device Does patient have a Pacemaker or an ICD?: No Airway Exam Known Difficult Airway: No Mallampati Class: 1 Mouth Opening: Normal (> 3cm) Thyromental Distance: Greater than 3 cm Neck Range of Motion: Limited ROM Neck Circumference: Normal Teeth Condition: Normal Dentition and Generalized Poor Dentition ASA Classification ASA Score: ASA 3 Emergency Case?: No NPO Status NPO Status: NPO Clears >2 hours, Solids >8 hours Anesthesia Plan Resuscitation Status: Full Code Anesthesia Technique: General Anesthesia Airway Planned: Natural Airway Monitors Used: Standard Monitors
[2022-09-25 11:10] VITALS: BMI 35.1
[2022-09-25] MEDS: Lactated Ringers 1,000 ML 80 ML IV (11:20)
--- NOTE | 2022-09-25 12:10 | BOWEL_PTH ---
PATIENT: Chaka Swartz LOC: [facility] U#:[id number] AGE/SX: 77/M ROOM: RE09/25/[address]: Fe Estrada : 1945 BED: DIS: 09/25/2022 SPEC #: [id number] RECD: 09/26/22 09:39 STATUS: DIPTI RE #: [id number] CAESAR: 09/25/22 12:[address]: Fe Estrada DEPT: Surgical Specimen RECD BY: Cathy Kraus ENTERED: 09/26/22 09:46 SP TYPE: Bowel OTHR DR: Eduardo Hebert, GAS REVERSER Tissues: 1 - BIOPSY BOWEL 2 - STOMACH BIOPSY 3 - STOMACH BIOPSY 4 - STOMACH BIOPSY 5 - STOMACH BIOPSY 6 - ESOPHAGUS BIOPSY 7 - ESOPHAGUS BIOPSY Procedures: GROSS AND MICRO LEVEL 4 Comments: [id number]
[2022-09-25 12:31] VITALS: BP 133/76; PULSE 68; RESP 17; TEMP 36.2; O2SAT 95
--- NOTE | 2022-09-25 12:36 | W.ANESPOSTOP ---
Postoperative Evaluation Date, Time and Location Date Performed: 09/25/22 Time Performed: 12:36 Patient Location: Day Surgery Unit Vital Signs Most Recent Imported Vital Signs: Temp Pulse Resp BP Pulse Ox 36.2 C L 68 17 133/76 95 09/25/22 12:31 09/25/22 12:31 09/25/22 12:31 09/25/22 12:31 09/25/22 12:31 Pain Score Most Recent Pain Score: Most Recent Pain Score Pain Level 4 09/25/22 10:11 Assessment Mental Status: Awake (Alert & Oriented to Patient Baseline) Airway and Respiratory Function: Patent airway with normal (patient baseline) respiratory exam Cardiovascular Function: Hemodynamically Stable Hydration Status: Adequately Hydrated Nausea & Vomiting: No Nausea or Vomiting Pain: Pt. Denies Any Pain Peripheral Nerve Block: Patient did not receive a nerve block
[2022-09-25 13:10] VITALS: BP 137/85; PULSE 85; RESP 18; TEMP 36.3; O2SAT 98
== END 2022-09-25 14:00 | disposition home or self-care (01) ==
PROVIDERS: PCP Nurse Practitioner Family; Visit Provider Surgery
PROC: 0DJ68ZZ Inspection of Stomach, Via Natural or Artificial Opening Endoscopic (ICD-10-PCS; CPT 43235; principal; 2022-09-25 10:30)
DX: K31.89 Other diseases of stomach and duodenum (principal); K31.4 Gastric diverticulum; K29.70 Gastritis, unspecified, without bleeding; K22.70 Barrett's esophagus without dysplasia
CPT/HCPCS: 43239; 88305; J2001

== ENCOUNTER 2022-11-05 12:54 | Outpatient (CLI) | payer BC, MEDICARE, SELFPAY ==
[2022-11-05 12:27] LABS: Abs Immature Grans 0.02 10^3/uL (0.0-0.06); Absolute Basophil Count 0.06 10^3/uL (0.0-0.2); Absolute Eosinophil Count 0.09 10^3/uL (0.0-0.7); Absolute Lymphocyte Count 0.83 10^3/uL (1.2-3.4); Absolute Monocyte Count 0.59 10^3/uL (0.1-0.8); Basophils % 1.2; Eosinophils % 1.7; HCT 51.8 % (40.0-50.0); HGB 17.2 g/dL (13.5-17.5); Immature Grans % 0.4; MCH 32.2 pg (27.0-33.0); MCHC 33.2 % (32.0-36.0); MCV 97 fL (80-95); MPV 10.9 fL (8.0-11.0); Monocytes % 11.4; Neutrophils % 69.3; Platelet Count 161 10^3/uL (130-400); RBC 5.34 10^6/uL (4.36-5.78); RDW 12.6 % (11.8-14.1); WBC 5.19 10^3/uL (4.4-10.8)
[2022-11-05 12:53] LABS: Anion Gap 7.8 mmol/L (3-11); BUN 13 mg/dL (7-18); CO2 30.2 mmol/L (21.0-32.0); CREATININE 1.3 mg/dL (0.70-1.30); Calcium 9.8 mg/dL (8.5-10.1); Calculated LDL 76 mg/dL (<100); Chloride 101 mmol/L (98-107); Cholesterol 153 mg/dL (<200); Estimated GFR 55.88 (mL/min/1.73m2); Glucose 152 mg/dL (74-106); HDL Cholesterol 62 mg/dL (40-60); Potassium 3.8 mmol/L (3.5-5.1); Sodium 139 mmol/L (136-145); Triglyceride 75 mg/dL (<150)
== END 2022-11-05 12:55 | disposition home or self-care (01) ==
LOC: LBO 12:54
PROVIDERS: PCP Nurse Practitioner Family; Visit Provider Nurse Practitioner Family
DX: I10 Essential (primary) hypertension (principal); E78.5 Hyperlipidemia, unspecified; D75.1 Secondary polycythemia
CPT/HCPCS: 36415; 80048; 80061; 85025

== ENCOUNTER → 2023-05-22 13:57 | Outpatient (CLI) | payer BC, MEDICARE, SELFPAY ==
--- NOTE | 2023-05-22 10:30 | DI.RAD_ITS ---
Exam(s) XR KNEE LT 4V AP,LAT,HOWARD,PAT EXAM: XR KNEE LT 4V AP,LAT,HOWARD,PAT CLINICAL HISTORY: evaluate pathology, LT KNEE PAIN, M25.562. TECHNIQUE: 2D digital imaging was performed. Three views. COMPARISON: CR RIGHT KNEE LIMITED 1 OR 2 VIEW from 08/06/2017 FINDINGS: BONES: No acute fracture is present. No bony destructive lesion is seen. JOINTS: There is severe narrowing of the lateral patellofemoral joint, with a nasq-ky-spyt appearance . There is prominent periarticular spurring. There is spurring at the femoral tibial joints no sign ificant joint space narrowing. No joint effusion is seen. 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 DATA REPOSITORY: RADIATION DOSE DELIVERED:
== END ==
PROVIDERS: PCP Nurse Practitioner Family; Visit Provider Nurse Practitioner Family
DX: M25.562 Pain in left knee (principal); M17.12 Unilateral primary osteoarthritis, left knee
CPT/HCPCS: 73564

== ENCOUNTER 2024-06-04 13:14 | Outpatient (CLI) | payer BC, MEDICARE, SELFPAY ==
--- NOTE | 2024-06-04 12:30 | DI.MRI_ITS ---
Exam(s) MR LUMBAR SPINE WO EXAM: MR LUMBAR SPINE WO CLINICAL HISTORY: lumbar radiculopathy M54.50 LOW BACK PAIN M79.605 PAIN LEFT LEG RADIATING. TECHNIQUE: Multiplanar multisequence MRI of the Lumbar spine was performed. COMPARISON: CT CT ABDOMEN PELVIS W from 07/16/2019 There are no prior plain films lumbar spine available at the time of this MRI interpretation FINDINGS: Five lumbar vertebrae are presumed. Conus medullaris is at normal level. There is no evidence of conus mass nor subjacent clumping of in trathecal nerve roots to suggest arachnoiditis. The distal thecal sac appears unremarkable.There is no evidence of Tarlov intrasacral cysts nor other significant findings within the sacral canal Bones:There are no fractures nor ominous osseous lesions in the lumbar vertebral bodies and visualize d sacrum. Partial ankylosis of the sacroiliac joints is noted, as was evident on abdominal CT scan o f July 2019. With respect to the individual levels... T12-L1: Mild posterior bony ridging noted at this level. No distinct disc herniation. Central canal dimensions are lower normal. Facets unremarkable. There is no foraminal stenosis but on the left s jeffrey there is a dilated exiting nerve root sleeve. Similar findings not seen on the opposite-right si de. L1-2: This level exhibits moderate uniform disc space narrowing. There is no significant disc hernia tion at this level. Central canal dimensions are within normal limits. There is no significant fora nikko stenosis. Anterior osteophytes noted as well as right lateral osteophytes. L2-3: This level exhibits moderate disc space narrowing, more so posteriorly than anteriorly. There is annular bulging which extends into the floor of the exiting neural foramina bilaterally, more prom inent on the left side. There is posterior epidural lipomatosis at this level resulting in a concave posterior border of the thecal sac at this level. There is no central disc herniation. Central can al dimensions are lower normal. At the level of the exiting left neural foramen there is asymmetric annular bulging with mild left-sided foraminal stenosis as the annular bulging contacts the inferior aspect of the exiting left nerve root at this level. Lesser amount of annular bulging is noted on th e right and there is no right-sided foraminal stenosis at this level. There are mild degenerative lewis nges in both facet joints at this level. L3-4: This level exhibits mild symmetrical disc space narrowing. Posteriorly there is symmetrical an nular bulging which flattens the anterior aspect thecal sac. Posteriorly there is posterior epidural lipomatosis resulting in a concave posterior border of the thecal sac at this level, similar to the L2-3 level. There are mild degenerative changes in the facet joints. No distinct focal disc herniat ion. No significant foraminal stenosis. L4-5: At this level there is preserved disc height but there is mild anterolisthesis of L4 upon L5 re lated to facet arthropathy. There is severe central spinal canal stenosis at this level due to the l isthesis, short AP dimensions the pedicles, prominent facet arthropathy bilaterally and mild ligament um flavum hypertrophy. There is no significant foraminal stenosis on either side at this level, this because of the preserve d disc height. L5-S1: There is moderate disc height loss at this level. Gas within the disc space noted and there a re Schmorl's node invaginations in the inferior endplate of L5 vertebral body. There is also a small Schmorl's node invagination in the mid aspect of the superior endplate of S1. There are mild Modic type 1 sub endplate marrow edema changes on both sides of this disc space. Posteriorly there is mild annular bulging without a dominant disc herniation and there is no central canal stenosis. There ar e mild degenerative changes in the facet joints. There is no significant foraminal stenosis on the l eft side. There is mild-moderate foraminal stenosis on the right side at this level mostly related t o slightly more disc space height loss on the right side of this level and slightly more prominent fa cet arthropathy on the right side when compared to the left. Soft tissues: paraspinal soft tissues appear unremarkable. IMPRESSION: 1. Multilevel findings as described individually above. 2. There is severe spinal canal stenosis at L4-5 level due to mild degenerative anterolisthesis of L4 upon L5, short AP dimensions of the pedicles and significant bilateral facet arthropathy at this lev el. 3. There is no osseous central canal stenosis at the other levels but there is posterior epidural lip omatosis at L2-3 and L3-4 levels, this excess fat in the posterior epidural space indenting the theca l sac posteriorly resulting in in concave posterior border of the thecal sac at these levels. 4. There are Modic type 1 sub endplate marrow edema changes at L5-S1 with Schmorl's node invaginatio ns in the inferior endplate of L5 and superior endplate of S1. There is no listhesis at this level. DATA REPOSITORY:
== END 2024-06-04 13:34 ==
LOC: DI 13:16
PROVIDERS: PCP Nurse Practitioner Family; Visit Provider Physician Assistant
DX: M48.062 Spinal stenosis, lumbar region with neurogenic claudication (principal)
CPT/HCPCS: 72148

== ENCOUNTER 2024-07-15 02:44 | Outpatient (CLI) | payer BC, MEDICARE, SELFPAY ==
[2024-07-15 11:31] LABS: CREATININE 1.1 mg/dL (0.70-1.30); Calculated LDL 79 mg/dL (<100); Cholesterol 176 mg/dL (<200); Estimated GFR 67.44 (mL/min/1.73m2); HDL Cholesterol 65 mg/dL (>or=40); Potassium 3.8 mmol/L (3.5-5.1); Triglyceride 160 mg/dL (<150)
[2024-07-15 18:18] LABS: PSA, Screening 5.3 ng/mL (<=6.5)
== END 2024-07-15 02:45 | disposition home or self-care (01) ==
LOC: LBO 02:44
PROVIDERS: PCP Nurse Practitioner Family; Visit Provider Nurse Practitioner Family
DX: I10 Essential (primary) hypertension (principal); Z12.5 Encounter for screening for malignant neoplasm of prostate; Z13.6 Encounter for screening for cardiovascular disorders
CPT/HCPCS: 36415; 80061; 84153; 82565; 84132

== ENCOUNTER 2024-07-16 09:58 | Outpatient (CLI) | payer BC, MEDICARE, SELFPAY ==
--- NOTE | 2024-07-16 09:45 | DI.US_ITS ---
Exam(s) US LOWER EXTREMITY VENOUS LT EXAM: US LOWER EXTREMITY VENOUS LT CLINICAL HISTORY: M79.89 Other specified soft tissue disorders, left leg swelling r/o DVT TECHNIQUE: Left lower extremity venous ultrasound performed using grayscale, color-flow, and spectra l Doppler analysis. COMPARISON: No exams were available for comparison FINDINGS: The left common femoral, femoral and popliteal veins demonstrate normal compressibility, augmentation , and color Doppler. The posterior tibial and peroneal veins are patent. The saphenofemoral junction is unremarkable. There is no evidence of a Jenkins cyst. There is edema seen in the calf. IMPRESSION: No evidence of a left lower extremity DVT. DATA REPOSITORY:
== END 2024-07-16 10:18 ==
PROVIDERS: PCP Nurse Practitioner Family; Visit Provider Physician Assistant
DX: M79.89 Other specified soft tissue disorders (principal)
CPT/HCPCS: 93971

== ENCOUNTER 2024-09-29 01:38 | Outpatient (CLI) | payer BC, MEDICARE, SELFPAY ==
--- NOTE | 2024-09-29 11:45 | DI.US_ITS ---
APPROVED REPORT EXAM: Comprehensive 2D, Doppler, and color-flow Echocardiogram Patient Location: Out-Patient Discharge Specialist: Mary Lofton RDCS (AE) Indications: SOB, Pre operative cardiovascular exam, High risk surgery, Diaphragmatic paralysis, acute coronary syndrome Other Information Study Quality: Adequate Conclusion Normal left ventricular wall thickness and chamber size. Ejection fraction is 55 to 60%. There are no segmental wall motion abnormalities. Patient is in atrial fibrillation with [id number] variation Normal right ventricular size and function Both atria are moderately to severely dilated The aortic valve is calcified and probably trileaflet. There is no hemodynamically significant aortic stenosis, no aortic regurgitation Mild mitral annular calcification, trace mitral regurgitation Estimated right ventricular systolic pressure is 28 mmHg Ascending aorta measures 3.63 cm Wall motion Left Ventricle The left ventricle is normal size. The left ventricular systolic function is normal. The left ventricular ejection fraction is within the normal range. Asymmetric septal thickening is noted. There is normal LV segmental wall motion. There is no ventricular septal defect visualized. LVEF is 55%. Right Ventricle The right ventricle is normal size. The right ventricular systolic function is normal. Atria Left atrium is moderately to severely dilated. Right atrium is moderately to severely dilated. The interatrial septum is intact with no evidence for an atrial septal defect. Aortic Valve Aortic valve is calcified. Aortic valve is probably trileaflet No hemodynamically significant valvular aortic stenosis. No aortic regurgitation is present. Mitral Valve Mild mitral annular calcification. No evidence of mitral valve stenosis. Trace mitral regurgitation. Tricuspid Valve The tricuspid valve is normal in structure. There is no tricuspid valve stenosis. Trace tricuspid regurgitation. The RVSP is 28.5 mmHg. Pulmonic Valve The pulmonary valve is normal in structure. There is no pulmonic valvular stenosis. There is no pulmonic valvular regurgitation. Great Vessels The aortic root is normal in size. The ascending aorta is mildly dilated. IVC is normal in size and collapses >50% with inspiration. Pericardium There is no pericardial effusion. 2D Dimensions IVSD d PLAX 1.27 cm M: 0.6-1.2 Ao Root d 3.76 cm M: 3.1 - 3.7 LVPW d PLAX 1.00 cm M: 0.6 - 1.2 Ao Asc Diam d 3.63 cm M: 2.6 - 3.4 LVID d PLAX 4.63 cm M: 4.2 - 5.8 LVDs 3.30 cm M: 2.5 - 4.0 LV EF Teichholz 55.3 % FS 28.69 % LV EDV (Teich) 98.8 mL LV ESV (Teich) 44.2 mL M-Mode TAPSE 2.04 cm (M/F) >1.7 Auto EF LV EDV A4C 102.2 mL LV EDV A2C 106.6 mL LV EDV BP 108.8 mL LV ESV A4C 45.6 mL LV ESV A2C 48.0 mL LV ESV BP 46.5 mL LVEF(%) A4C 55.4 % LVEF(%) A2C 54.9 % LVEF(%) BP 57.2 % LV SV A4C 56.6 ml LV SV A2C 58.6 ml LV SV BP 62.3 ml LV CO A4C 5.9 L/min LV CO A2C 6.2 L/min LV CO BP 6.1 L/min HR A4C 104.05 BPM HR A2C 106.20 BPM LV EDV Index (BP) LA Volume LA Length A4C 7.3 cm LA Length A2C 6.7 cm LA Area A4C s 30.50 cm2 LA Area A2C s 29.77 cm2 LA Vol A4C A-L 107.59 mL LA Vol A2C A-L 112.12 mL LA Vol Biplane A-L 114.9 mL LA Vol/BSA A4C A-L LA Vol/BSA A2C A-L LA Vol/BSA BP A-L 46.3 mL/m2 LA Vol A4C MOD 99.4 mL LA Vol A2C MOD 104.2 mL LA Vol BP MOD 106.3 mL RA Volume RA Area A4C 26.4 cm2 RA ESV A4C (A-L) 97.3mL RA Vol/BSA A4C A-L RA Length A4C 6.1 cm RA ESV A4C (MOD) 91.8mL LV Diastology MV E' lateral 0.128 (>0.1 m/s) MV E Vmax 1.03 (0.4-1.3 m/s) MV E/E' LAT 8.09 (<14) Aortic Valve AoV Vmax 2.02 m/s LVOT Vmax 1.05 m/s AoV Peak Grad 16.4 mmHg LVOT Peak Grad 4.4 mmHg AoV Area (Vmax) 1.70 cm2 LVOT VTI 0.184 m AoV VTI 0.386 m LVOT Mean Grad 2.8 mmHg AoV Mean Konstantin. 1.56 m/s LVOT SV 60.46 mL AoV Mean Grad 10.6 mmHg LVOT Diam s 2.00 cm AoV Area (VTI) 1.57 cm2 AV Regurg Peak Gr. 16.39 mmHg Velocity Ratio 0.52 Mitral Valve MV DT 168 (160-240 msec) MV Vmax TIPS 1.01 m/s MV Mean Grad 1.8 (<2mmHg) MV VTI 0.211 m Pulmonary Valve PV Vmax 0.86 (0.5-1.5 m/s) RVOT Vmax 0.72 m/s PV Peak Grad 3.0 mmHg RVOT Peak Gr. 2.1 mmHg PV Mean Konstantin 0.63 m/s RVOT VTI 0.125 m PV Mean Grad 1.8 mmHg RVOT Mean Gr. 0.9 mmHg Tricuspid Valve RA Pressure 3.00 mmHg TR Vmax 2.53 m/s TV S' 0.15 m/s TR Peak Grad 25.5 mmHg RVSP (TR) 28.5 mmHg
== END 2024-09-29 01:58 ==
LOC: DI 01:38
PROVIDERS: PCP Nurse Practitioner Family; Visit Provider Internal Medicine Cardiovascular Disease
DX: J98.6 Disorders of diaphragm (principal); Z01.810 Encounter for preprocedural cardiovascular examination; I24.9 Acute ischemic heart disease, unspecified; R06.02 Shortness of breath
CPT/HCPCS: 93306

== ENCOUNTER 2024-10-13 15:06 | Emergency (ER) | payer BC, MEDICARE, SELFPAY ==
--- NOTE | 2024-10-13 15:00 | RT.EKG_ITS ---
APPROVED REPORT Exam: Resting ECG Reason for Exam: Chest pain Patient Location: E HR:108 bpm ECG Measurements Heart Rate 108 AXIS AZ [id number] P [id number] QRSd 150 QRS 75 QT 364 T 5 QTc 489 Conclusion Atrial fibrillation...V-rate 80-139, irreg A-activity Right bundle branch block...QRSd>120, terminal axis(90,270)
[2024-10-13 15:08] VITALS: BP 144/104; PULSE 101; RESP 18; O2SAT 93
[2024-10-13 16:15] LABS: HCT 46.7 % (40.0-50.0); HGB 15.9 g/dL (13.5-17.5); MCH 32.3 pg (27.0-33.0); MCHC 34.0 % (32.0-36.0); MCV 95 fL (80-95); MPV 10.6 fL (8.0-11.0); Platelet Count 152 10^3/uL (130-400); RBC 4.93 10^6/uL (4.36-5.78); RDW 12.3 % (11.8-14.1); RDW-SD 43.0 fL; WBC 6.70 10^3/uL (4.4-10.8)
--- NOTE | 2024-10-13 16:15 | DI.RAD_ITS ---
Exam(s) XR RIBS LT W PA LAT CHEST EXAM: XR RIBS LT W PA LAT CHEST CLINICAL HISTORY: Fall, Left rib pain TECHNIQUE: 2D digital imaging was performed. Six images are obtained. COMPARISON: CR XR CHEST 2V PA LATERAL from 07/22/2019 CR XR CHEST 2V PA LATERAL from 03/09/2021 CR,XR XR CHEST 1V IN DI DEPT from 05/27/2022 FINDINGS: MEDIASTINUM: Normal. HEART: Normal. PULMONARY VASCULATURE: Normal. LUNGS: Clear. PLEURAL SPACE: No pleural effusion or pneumothorax. BONE:Within normal limits for the patient's age. LEFT RIBS: Normal. OTHER FINDINGS:There is again seen elevation of the right hemidiaphragm. IMPRESSION: 1. No acute pulmonary findings. 2. Unremarkable left ribs. DATA REPOSITORY: RADIATION DOSE DELIVERED:
--- NOTE | 2024-10-13 16:17 | W.ED.GENAD ---
Discharge Plan Disposition Patient Disposition: Home Condition: Stable Discharge Details Clinical Impression: Fall as cause of accidental injury at home as place of occurrence, Epistaxis due to trauma, Contusion of rib on left side Primary Care Provider: Eduardo Hebert ED Provider: Cathie Pool Home Meds and New Rx's Prescriptions: No Action fluorouracil 5 % cream 1 applic topical BID Metamucil 3.4 gram/5.4 gram powder 1 tbsp PO DAILY Rx Instructions: mix into at least 8 oz of water or juice before administering tramadol 50 mg tablet 50 mg PO BID PRN (Reason: pain) Qty: 90 0RF Rx Instructions: May take 2 tablets if needed. torsemide 20 mg tablet 20 mg PO DAILY Qty: 90 3RF Rx Instructions: May take 2 tabs if needed. sucralfate [Carafate] 1 gram tablet 1 g PO QHS Qty: 90 3RF Rx Instructions: take at bedtime valsartan 160 mg tablet 160 mg PO DAILY Qty: 90 3RF Eliquis 5 mg tablet 5 mg PO BID Qty: 180 3RF atorvastatin 20 mg tablet 20 mg PO DAILY Qty: 90 3RF pantoprazole [Protonix] 40 mg tablet,delayed release (DR/EC) 40 mg PO QAM Qty: 30 12RF metoprolol succinate 50 mg tablet extended release 24 hr 50 mg PO DAILY Qty: 90 3RF trazodone 50 mg tablet 50 mg PO QHS PRN (Reason: sleep) Qty: 90 3RF Simbrinza 1-0.2 % drops,suspension 1 drp ophthalmic (eye) BID Patient Comments: INSTILL 1 DROP INTO BOTH EYES TWO TIMES A DAY DIRECTED Discharge Instructions Instructions: Preventing falls in adults, Bruised Rib, Nosebleeds ED Additional Instructions: At this time no evidence of bleeding in your brain no acute facial fracture. Your lab work was all largely within normal limits. Please follow-up with ear nose and throat for removal of the nasal packing within the next 24 to 48 hours. You are placed on a care management list to assist you in getting a urgent follow-up for removal. You may also call in the morning to get an appointment for any packing removal. Ice your face for 20 minutes to decrease the swelling. You may resume your Eliquis after 24 hours. Please return to the ER for any bleeding through the nasal packing, if you feel blood running down back from your throat, vomiting, blurry vision, weakness dizziness confusion worsening chest pain abdominal pain vomiting blood or any concerns. Thank you for allowing us to care for you today. Referrals: Eduardo Hebert FIRE ALARM OPERATOR [Primary Care Provider, Medicine] - 1 week Referral Note: Dizziness Victor Hugo Kent MD [ [facility] STAFF PHYSICIAN, ENT Surgical] - 2 days Referral Note: ER follow up Packing removal, Traumatic nose bleed. Clinical Impression: Epistaxis due to trauma; Fall as cause of accidental injury at home as place of occurrence Discharge Data Discharge Date/Time-TO BE ENTERED AT DEPARTURE: 10/13/24 17:44 HPI General Mode of arrival: ambulatory. Date/Time Provider Initiated Documentation: 10/13/24 15:10. Limitations to Documentation: no limitations. Information obtained by: patient, RN/MD, RN notes reviewed and old records reviewed. HPI Narrative: 79year old male presents to ED after a fall last pm at midnight, was bending over to pick something off floor and lost his balance and fell into coffee table and floor. Denies LOC, Began with immediated Epistaxsis at that time. Was unable to stop bleeding, presented to [facility] and had bilateral rhino rockets placed. Bleeding controlled upon arrival. Patient is A&O x 4 denies C-spine pain, T or L spine arsenio. Is c/o Left rib pain. Denies visual disturbances. Patient has hx of Afib and is on eliquis. Related Data Home Medications ?Medication ?Instructions ?Recorded ?Confirmed psyllium husk 3.4 gram/5.4 gram 1 tbsp PO DAILY 11/29/20 10/08/24 oral powder (Metamucil) brinzolamide 1 %-brimonidine 0.2 % 1 drp ophthalmic (eye) BID 09/21/22 10/08/24 eye drops,suspension (Simbrinza) sucralfate 1 gram tablet (Carafate) 1 g PO QHS #90 tabs 10/10/23 10/08/24 fluorouracil 5 % topical cream 1 applic topical BID 01/28/24 10/08/24 valsartan 160 mg tablet 160 mg PO DAILY #90 tabs 03/16/24 10/08/24 apixaban 5 mg tablet (Eliquis) 5 mg PO BID #180 tabs 04/21/25 08/28/25 atorvastatin 20 mg tablet 20 mg PO DAILY #90 tabs 07/07/24 10/08/24 pantoprazole 40 mg tablet,delayed 40 mg PO QAM #30 tabs 07/07/24 10/08/24 release (Protonix) tramadol 50 mg tablet 50 mg PO BID PRN pain #90 tabs 07/22/24 10/08/24 metoprolol succinate 50 mg 50 mg PO DAILY #90 tabs 09/16/24 10/08/24 tablet,extended release 24 hr trazodone 50 mg tablet 50 mg PO QHS PRN sleep #90 tabs 10/07/24 10/08/24 torsemide 20 mg tablet 20 mg PO DAILY #90 tabs 10/08/24 10/08/24 Previous Rx's ?Medication ?Instructions ?Recorded sucralfate 1 gram tablet (Carafate) 1 g PO QHS #90 tabs 10/10/23 valsartan 160 mg tablet 160 mg PO DAILY #90 tabs 03/16/24 apixaban 5 mg tablet (Eliquis) 5 mg PO BID #180 tabs 06/01/24 atorvastatin 20 mg tablet 20 mg PO DAILY #90 tabs 07/07/24 pantoprazole 40 mg tablet,delayed 40 mg PO QAM #30 tabs 07/07/24 release (Protonix) tramadol 50 mg tablet 50 mg PO BID PRN pain #90 tabs 07/22/24 metoprolol succinate 50 mg 50 mg PO DAILY #90 tabs 09/16/24 tablet,extended release 24 hr trazodone 50 mg tablet 50 mg PO QHS PRN sleep #90 tabs 10/07/24 torsemide 20 mg tablet 20 mg PO DAILY #90 tabs 10/08/24 Allergies Allergy/AdvReac Type Severity Reaction Status Date / Time oxycodone (From Percocet) AdvReac Intermediate Other (See Verified 10/13/24 15:15 Comment) General Stated Complaint: Trauma KANDACE: 3 Review of Systems All systems reviewed & are unremarkable except as noted in HPI and below Constitutional Constitutional: Reports as per HPI, Reports frequent falls and Denies weakness ENT Ears, Nose, Mouth, and Throat: Reports as per HPI, Reports dizziness, Reports facial pain and Reports epistaxis (Bleeding resolved upon arrival) Cardiovascular Cardiovascular: Denies chest pain and Denies orthopnea Gastrointestinal Gastrointestinal: Denies nausea and Denies vomiting Musculoskeletal Musculoskeletal: Denies numbness Neurologic Neurologic: Reports as per HPI, Denies confusion, Reports dizziness, Reports frequent falls, Reports lack of coordination, Denies localized weakness, Denies numbness, Denies other visual disturbances, Denies convulsions, Denies seizure-like activity, Denies tremor(s) and Denies weakness Psychiatric Psychiatric: Denies confusion Exam Narrative Exam Narrative: General: Well Developed, Awake and Alert, conversant. Skin: Warm and Dry HEENT: Head: No palpable deformities, Normocephalic Eyes: Pupils PERRLA, EOM's intact. No periorbital eccymosis or step off Ears: Canal patent. Tympanic membranes are clear . No tellez's sign, no hemptympanum. Nose/Face: Superficial abrasion to the right frontal scalp, facial bones nontender to palpation and stable with manipulation. Nose have bilateral Rhino Rocket's in nares, no bleeding posterior oropharynx or bleeding. He packing evaluated. Mouth/Throat: Upper lip swelling and abrasion noted, no laceration or bleeding, no intraoral trauma. Teeth and mandible are intact. Neck: No midline tenderness, no step off, no deformity to palpation of C-spine. Trachea midline. Chest: No surface trauma. Nontender without crepitus or deformity. Lungs clear to ausculatation bilaterally. Heart: RRR, no rubs, murmurs or gallop. Abdomen: No abrasions, ecchymosis, or surface trauma. Nondistended. Nontender to palpation no guarding, rebound, or rigidity. Pelvis: Nontender to palpation and stable to compression. Femoral pulses strong and equal Extremities: no surface trauma. Sensation intact. Peripheral pulses intact and equal. Neuro: ANO x4, GCS 15, cranial nerves II through XII intact. Motor and sensory exam nonfocal. Reflexes are symmetric. Course Vital Signs Vital signs: Vital Signs Pulse 101 H 10/13/24 15:08 Respiratory Rate 18 10/13/24 15:08 Blood Pressure 144/104 H 10/13/24 15:08 Pulse Oximetry 93 10/13/24 15:08 Pulse 101 H 10/13/24 15:08 Respiratory Rate 18 10/13/24 15:08 Respiratory Effort Normal 10/13/24 16:10 Respiratory Depth Normal 10/13/24 16:10 Respiratory Pattern Normal 10/13/24 16:10 Blood Pressure 144/104 H 10/13/24 15:08 Pulse Oximetry 93 10/13/24 15:08 Oxygen Delivery Method Room Air 10/13/24 15:08 Oxygen Flow Rate 0 10/13/24 15:08 Medical Decision Making 79year old male presents to ED after a fall last pm at midnight, was bending over to pick something off floor and lost his balance and fell into coffee table and floor. Denies LOC, Began with immediated Epistaxsis at that time. Was unable to stop bleeding, presented to [facility] and had bilateral rhino rockets placed. Bleeding controlled upon arrival. Patient is A&O x 4 denies C-spine pain, T or L spine arsenio. Is c/o Left rib pain. Denies visual disturbances. Patient has hx of Afib and is on eliquis. EKG was reviewed by myself and Dr. Vazquez ER attending, atrial fibrillation with a right branch block noted, old EKG available for review. See official report. Patient is requesting to be discharged from the department. No leukocytosis H&H is within normal limits PT is 10.5 INR 1.0, CMP largely within normal limits. CT head and facial bones show no acute intracranial abnormality, no acute facial fracture there is some decreased attenuation in the white matter consistent with chronic microvascular ischemic disease, no acute territorial infarct or mass fact no hemorrhage. There is some mucosal thickening in the maxillary sinus and ethmoid air cells bilaterally however patient does have bilateral Rhino Rocket's in place. X-ray chest and rib series showed no acute rib fracture. Will discuss results with patient and family and discharge home. Will refer to your nose and throat for reevaluation and removal of nasal packing. Patient remained hemodynamically stable alert and oriented throughout the remainder of his stay. This text was generated using [employer] system, please disregard any oddities of phrase or misspellings. Medical Records Medical records reviewed: Yes I reviewed the patient's medical records. Imaging Data Radiologic Study: Imaging: CT Scan Radiologist's impression: Preliminary CT result: CT Head: Ventricles and Extra axial spaces: Normal in size and morphology for the patient's age. Hemorrhage: None. Cerebral parenchyma: There are areas of decreased attenuation in the white matter most consistent with chronic microvascular ischemic disease. There is no evidence of an acute territorial infarct or mass effect. Midline shift: None. Brainstem/Cerebellum: Normal. Calvarium: Normal. Visualized Paranasal sinuses/Mastoids: There is mucosal thickening in the maxillary sinuses bilaterally. There is mild mucosal thickening in the ethmoid air cells anteriorly bilaterally. The remaining visualized paranasal sinuses are clear. The mastoid air cells are well pneumatized. Soft Tissues: Unremarkable. CT Face: Facial Bones: There is mucosal thickening in the maxillary sinus and ethmoid air cells bilaterally. Remaining visualized paranasal sinuses and mastoid air cells are clear. There is unchanged leftward deviation of the nasal septum. Packing material is seen in the nasal passageways bilaterally. Sinuses and Mastoids: Unremarkable. Globes, extraocular muscles, optic nerves and retrobulbar fat: Normal. Upper aerodigestive tract: Normal. Mandible and bilateral temporomandibular joints: Normal. Soft tissues: Normal. IMPRESSION: 1. No acute intracranial process. 2. No acute facial fracture. 3. Paranasal sinus disease. Lab Data Lab results reviewed: Yes I reviewed the patient's lab results. Labs: Laboratory Tests Range/Units 10/13/24 16:08 WBC (4.4-10.8) 10^3/uL 6.70 RBC (4.36-5.78) 10^6/uL 4.93 Hgb (13.5-17.5) g/dL 15.9 Hct (40.0-50.0) % 46.7 MCV (80-95) fL 95 MCH (27.0-33.0) pg 32.3 MCHC (32.0-36.0) % 34.0 RDW (11.8-14.1) % 12.3 Plt Count (130-400) 10^3/uL 152 MPV (8.0-11.0) fL 10.6 PT (9.1-11.1) sec 10.5 INR (0.9-1.1) 1.0 APTT (20.6-30.2) sec 29.6 Sodium (136-145) mmol/L 140 Potassium (3.5-5.1) mmol/L 3.7 Chloride (98-107) mmol/L 103 Carbon Dioxide (21.0-32.0) mmol/L 26.8 Anion Gap (3-11) mmol/L 10.2 BUN (7-18) mg/dL 12 Creatinine (0.70-1.30) mg/dL 0.9 Est GFR (CKD-EPI 2020) (mL/min/1.73m2) 85.80 Glucose (74-106) mg/dL 103 Calcium (8.5-10.1) mg/dL 9.5 Total Bilirubin (0.2-1.0) mg/dL 1.0 AST (15-37) U/L 46 H ALT (16-63) U/L 61 Alkaline Phosphatase (46-116) U/L 79 Total Protein (6.4-8.2) g/dL 7.1 Albumin (3.4-5.0) g/dL 3.9 Quality:SDOH Health Related Social Needs: Health related social needs details none PFSH All Active Problems (Updated 10/13/24 @ 17:34 by Cathie Pool NP) Contusion of rib on left side (Acute) Epistaxis due to trauma (Acute) Fall as cause of accidental injury at home as place of occurrence (Acute) Epistaxis due to trauma (Acute) Poor balance (Acute) Frequent falls (Acute) Fall as cause of accidental injury at home as place of occurrence (Acute) Lymphedema (Acute) Lumbar spinal stenosis (Acute) Low back pain radiating to left lower extremity (Acute) Chronic wound (Acute) Degenerative joint disease of knee, left (Acute) Barretts esophagus (Acute ~09/2022) Tinnitus, bilateral (Acute) Imbalance (Acute) Hiatal hernia (Chronic) Bile reflux gastritis (Acute) Status post total knee replacement (Acute) 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 Lynn Kidney stone (Acute) Hyperlipidemia (Acute 06/30/12) H/O alcohol abuse (Acute 10/19/13) Diaphragmatic paralysis (Acute) chronic right hemidiaphragm HTN (hypertension) (Chronic) Chronic rhinitis (Acute) Sensorineural hearing loss, bilateral (Acute) Insomnia (Acute) On trazodone as of 01/2021 Atrial fibrillation (Chronic) 12/2020, Chads-vasc 2 -3 Polycythemia (Acute) Obstructive sleep apnea (Chronic) 01/2021-patient did not tolerate facemask-currently not being treated Bilateral lower extremity edema (Acute) Posture abnormality (Acute) Fungal infection (Acute) Rectal bleeding (Acute) Anticoagulant long-term use (Acute) Internal hemorrhoid, bleeding (Acute) Syncope and collapse (Acute) Upper back pain (Acute) Upper back pain on left side (Acute) Thickening of esophagus (Acute) Abdominal fluid collection (Acute) Medical History Swelling of lower extremity Ringing in ears Poor circulation Lumbar spondylosis Lumbar spinal stenosis Leg pain Joint pain Irregular heart beat High cholesterol Clotting disorder Arthritis Urinary tract infection Strangulated umbilical hernia Incarcerated umbilical hernia Surgical History History of esophagogastroduodenoscopy (~09/2022) History of hernia repair History of tonsillectomy and adenoidectomy Replacement of total knee joint RIGHT Hemorrhoidectomy Colonoscopy - MAC 10/31/10;DR. ARJUN LYNN; MIXED TUBULAR AND SESSILE SERRATED ADENOMA Family History Father Personal history of malignant neoplasm COLON FAMILY HISTORY Personal history of malignant neoplasm PROSTATE Brother Heart attack Social History Smoking/Tobacco Use Status: Never Second Hand Exposure: Yes Smoking risk assessment performed?: Yes Alcohol Intake: current Alcohol Intake frequency: 3 or more drinks per day Alcohol type: hard liquor Drug use: Never Substance use type: does not use Caregiver/Support person: No Household members: spouse Housing: house Communication Needs: None Do you need help understanding health information?: Always Pets and animals: Yes Pets and animals: cat(s) Sexually active: Yes Do you think of yourself as: straight/heterosexual Current gender identity: male What is your relationship status?: How often do you talk on the phone with friends or family?: three or more times per week How often do you get together with friends or relatives?: three or more times per week How often do you attend anglican or druze services?: decline to answer Do you belong to any clubs or organized social groups?: no Panel score (0-1 are the most socially isolated patients): 2 What type of physical activity do you participate in: walking Duration: 30-45 minutes/day Frequency: 1-2 times per week Chery/Rastafarian: No preference Seatbelt use: always Drive intox or ride w/intox wrecking car driver: No Do you feel safe at home: Yes Do you feel safe in your relationship?: Yes
[2024-10-13 16:30] LABS: INR 1.0 (0.9-1.1); PTT Activated 29.6 sec (20.6-30.2); Prothrombin Time 10.5 sec (9.1-11.1)
--- NOTE | 2024-10-13 16:30 | DI.CT_ITS ---
Exam(s) CT HEAD FACIAL WO EXAM: CT HEAD FACIAL WO CLINICAL HISTORY: Fall, Facial injury last night, nose bleed. TECHNIQUE: Imaging Protocol: Axial computed tomography images with coronal and sagittal reformatted images were created and reviewed COMPARISON: CT CT HEAD CERVICAL SPINE WO from 05/27/2022 FINDINGS: The examination is limited due to patient motion artifact. CT Head: Ventricles and Extra axial spaces: Normal in size and morphology for the patient's age. Hemorrhage: None. Cerebral parenchyma: There are areas of decreased attenuation in the white matter most consistent with chronic microvascular ischemic disease. There is no evidence of an acute territorial infarct or mass effect. Midline shift: None. Brainstem/Cerebellum: Normal. Calvarium: Normal. Visualized Paranasal sinuses/Mastoids: There is mucosal thickening in the maxillary sinuses bilaterally. There is mild mucosal thickening in the ethmoid air cells anteriorly bilaterally. The remaining visualized paranasal sinuses are clear. The mastoid air cells are well pneumatized. Soft Tissues: Unremarkable. CT Face: Facial Bones: There is mucosal thickening in the maxillary sinus and ethmoid air cells bilaterally. Remaining visualized paranasal sinuses and mastoid air cells are clear. There is unchanged leftward deviation of the nasal septum. Packing material is seen in the nasal passageways bilaterally. Sinuses and Mastoids: Unremarkable. Globes, extraocular muscles, optic nerves and retrobulbar fat: Normal. Upper aerodigestive tract: Normal. Mandible and bilateral temporomandibular joints: Normal. Soft tissues: Normal. IMPRESSION: 1. No acute intracranial process. 2. No acute facial fracture. 3. Paranasal sinus disease. RADIATION DOSE DELIVERED: 1,680.86mGy.cm Total DLP DATA REPOSITORY: All CT scans at this facility are submitted to the National Radiology Data Registry (NRDR) Dose Index Registry (DIR) with the [employer] (ACR). RADIATION OPTIMIZATION: All CT scans at this facility use at least one of these dose optimization techniques: automated exposure control; mA and/or kV adjustment per patient size (includes targeted exams where dose is matched to clinical indication); or iterative reconstruction.
[2024-10-13 16:37] LABS: ALT 61 U/L (16-63); AST 46 U/L (15-37); Albumin 3.9 g/dL (3.4-5.0); Alkaline Phosphatase 79 U/L (46-116); Anion Gap 10.2 mmol/L (3-11); BUN 12 mg/dL (7-18); Bilirubin, Total 1.0 mg/dL (0.2-1.0); CO2 26.8 mmol/L (21.0-32.0); Calcium 9.5 mg/dL (8.5-10.1); Chloride 103 mmol/L (98-107); Estimated GFR 85.80 (mL/min/1.73m2); Glucose 103 mg/dL (74-106); Potassium 3.7 mmol/L (3.5-5.1); Sodium 140 mmol/L (136-145); Total Protein 7.1 g/dL (6.4-8.2)
[2024-10-13 17:43] VITALS: BP 168/90; PULSE 98; RESP 18; O2SAT 97
== END 2024-10-13 17:44 | disposition home or self-care (01) ==
PROVIDERS: Emergency Provider Registered Nurse Emergency; PCP Nurse Practitioner Family
DX: S29.8XXA Other specified injuries of thorax, initial encounter (principal); R04.0 Epistaxis; Z79.01 Long term (current) use of anticoagulants; Y92.018 Other place in single-family (private) house as the place of occurrence of the external cause; W01.198A Fall on same level from slipping, tripping and stumbling with subsequent striking against other object, initial encounter
CPT/HCPCS: 99284 ×2; 80053; 85027; 93005; 70450; 70486; 71046; 71100; 85610; 85730; 93010

== ENCOUNTER 2024-10-19 07:37 | Outpatient (CLI) | payer BC, MEDICARE, SELFPAY ==
--- NOTE | 2024-10-19 13:55 | DI.RAD_ITS ---
Exam(s) XR FOOT RT COMPLETE EXAM: XR FOOT RT COMPLETE CLINICAL HISTORY: Right foot pain,[id number]. TECHNIQUE: 2D digital imaging was performed. Three views. COMPARISON: No exams were available for comparison FINDINGS: BONES: No acute fracture is present. No bony destructive lesion is seen. JOINTS: No dislocation present. Mild narrowing of the 1st MTP joint and periarticular spurring. Mild hallux valgus. Moderate to severe degenerative changes are noted at the 1st and 2nd tarsal metatarsal joints. Hammertoe deformities. SOFT TISSUE: Calcification in the plantar fascia. Vascular calcifications. IMPRESSION: Degenerative changes. Plantar fascial calcification. Hammertoe deformities. DATA REPOSITORY: RADIATION DOSE DELIVERED:
== END 2024-10-19 07:57 ==
PROVIDERS: PCP Nurse Practitioner Family; Visit Provider Podiatrist
DX: M19.171 Post-traumatic osteoarthritis, right ankle and foot (principal); M72.2 Plantar fascial fibromatosis; M20.41 Other hammer toe(s) (acquired), right foot
CPT/HCPCS: 73630

== ENCOUNTER 2024-10-21 07:21 | Emergency (ER) | payer BC, MEDICARE, SELFPAY ==
[2024-10-21 07:27] VITALS: BP 168/100; PULSE 102; RESP 18; O2SAT 99
--- NOTE | 2024-10-21 07:39 | ED.GENADUL_ITS ---
Discharge Plan Disposition Patient Disposition: Home Discharge Details Clinical Impression: Right-sided epistaxis Primary Care Provider: Eduardo Hebert ED Provider: Nakul Vidales Home Meds and New Rx's Prescriptions: Continued fluorouracil 5 % cream 1 applic topical BID tramadol 50 mg tablet 50 mg PO BID PRN (Reason: pain) Qty: 90 0RF Rx Instructions: May take 2 tablets if needed. Metamucil 3.4 gram/5.4 gram powder 1 tbsp PO DAILY Rx Instructions: mix into at least 8 oz of water or juice before administering torsemide 20 mg tablet 20 mg PO DAILY Qty: 90 3RF Rx Instructions: May take 2 tabs if needed. sucralfate [Carafate] 1 gram tablet 1 g PO QHS Qty: 90 3RF Rx Instructions: take at bedtime valsartan 160 mg tablet 160 mg PO DAILY Qty: 90 3RF atorvastatin 20 mg tablet 20 mg PO DAILY Qty: 90 3RF pantoprazole [Protonix] 40 mg tablet,delayed release (DR/EC) 40 mg PO QAM Qty: 30 12RF metoprolol succinate 50 mg tablet extended release 24 hr 50 mg PO DAILY Qty: 90 3RF trazodone 50 mg tablet 50 mg PO QHS PRN (Reason: sleep) Qty: 90 3RF Simbrinza 1-0.2 % drops,suspension 1 drp ophthalmic (eye) BID Patient Comments: INSTILL 1 DROP INTO BOTH EYES TWO TIMES A DAY DIRECTED Held Eliquis 5 mg tablet 5 mg PO BID Qty: 180 3RF Hold Instructions: Resume on 10/24/24. Discharge Instructions Instructions: Humidifiers, Nosebleeds ED Additional Instructions: As discussed, please keep the nasal packing in place for the next 3 days with plan for removal on this coming Saturday. Please also hold your Eliquis until the nasal packing is removed. You may have your packing removed here at the emergency department or other healthcare facility. Following removal please use either petroleum based jelly such as Vaseline, or coconut cooking oil to align the inside of your nose very gently, to ensure that it remains moisturized. Please follow-up with ENT as scheduled and use the previously prescribed tramadol for pain control. Please return to emergency department develop any new or worsening symptoms such as fever, chills or worsening pain or bleeding. Discharge Data Discharge Date/Time-TO BE ENTERED AT DEPARTURE: 10/21/24 10:53 HPI General Date/Time Provider Initiated Documentation: 10/21/24 07:23 . HPI Narrative: MDM/Narrative: Initial Assessment: 79-year-old male with chronic A-fib on apixaban presents with epistaxis for the past 3 hours, predominantly from the right nare, with si gnificant blood loss. ED Course: - Afrin and TXA nebulization administered - Manual pressure applied [address] Kent of ENT who recommends that nasal packing remain in place for at least 72 hours, he is in agreement the plan to hold the patient's apixaban for 3 days, and resume once removed. He also recommends using coconut oil or petroleum based jelly to keep the nose hydrated after nasal packing removal, and will maintain his current follow-up plan in his office in November once healing has occurred. Plan of care discussed with the patient and his who are in agreement with the plan, also note that they were recently prescribed tramadol for pain control following his fall, which I recommended would be the optimal agent as he has tolerated this well wears oxycodone instead behavioral issues in the past. Clinical Impression: Epistaxis Disposition: Discharge home. Return if bleeding recurs or worsens. This document was created with assistance from [employer] The patient consented to its use. HPI: The patient, an 79-year-old male with a history of chronic atrial fibrillation managed with apixaban, presents with recurrent epistaxis. The initial episode of epistaxis occurred following a fall on 10/13/2024, which was managed with balloon tamponade and suture. Nasal packing was removed after 24 hours, and the epistaxis resolved upon temporary cessation of apixaban. The patient resumed apixaban last night, and this morning, he experienced a recurrence of epistaxis, predominantly from the right nostril, with significant blood loss over the past three hours. He denies experiencing chest pain, syncope, or other forms of bleeding. ROS: Negative besides as mentioned above Exam: Vital signs: Reviewed. General Appearance: No acute distress. HEENT: Active bright red blood oozing from the right nare. Neck: Supple, full range of motion, no observable masses, No meningeal sign. Respiratory: No Respiratory distress. No tachypnea. Cardiovascular: RRR, no edema. Gastrointestinal: Soft, nondistended, No rebound tenderness. Back: No midline tenderness to palpation or palpable step-offs of the C/T/L spine. Skin: Warm and dry, no rash. Neurological: Normal Gait, Grossly intact. Psychiatric: Appropriate for situation. Labs: Laboratory Tests Range/Units 10/21/24 10/21/24 08:30 08:40 WBC (4.4-10.8) 10^3/uL 6.03 RBC (4.36-5.78) 10^6/uL 5.11 Hgb (13.5-17.5) g/dL 16.9 Hct (40.0-50.0) % 49.8 MCV (80-95) fL 98 H MCH (27.0-33.0) pg 33.1 H MCHC (32.0-36.0) % 33.9 RDW (11.8-14.1) % 12.6 Plt Count (130-400) 10^3/uL 202 MPV (8.0-11.0) fL 10.8 Immature Gran % % 0.5 Neutrophils % % 68.6 Lymphocytes % % 12.9 Monocytes % % 12.8 Eosinophils % % 3.2 Basophils % % 2.0 Nucleated RBC % (0.0-0.3) % 0.0 Absolute Neutrophils (1.2-6.7) 10^3/uL 4.14 Absolute Lymphocytes (1.2-3.4) 10^3/uL 0.78 L Absolute Monocytes (0.1-0.8) 10^3/uL 0.77 Absolute Eosinophils (0.0-0.7) 10^3/uL 0.19 Absolute Basophils (0.0-0.2) 10^3/uL 0.12 Sodium (136-145) mmol/L 140 Potassium (3.5-5.1) mmol/L 4.0 Chloride (98-107) mmol/L 104 Carbon Dioxide (21.0-32.0) mmol/L 29.4 Anion Gap (3-11) mmol/L 6.6 BUN (7-18) mg/dL 14 Creatinine (0.70-1.30) mg/dL 1.0 Est GFR (CKD-EPI 2020) (mL/min/1.73m2) 75.61 Glucose (74-106) mg/dL 136 H Calcium (8.5-10.1) mg/dL 9.7 ABO/Rh O Positive Antibody Screen NEGATIVE Rads: Exam(s) CT BRAIN CTA EXAM: CT BRAIN CTA CLINICAL HISTORY: s/p rhino rocket, worsening eye pain. TECHNIQUE: Imaging Protocol: Axial CT angiography was performed with multi- slice acquisition and multi-planar and/or 3D reconstructions. CONTRAST MATERIAL: Intravenous: Omnipaque 350 Contrast volume:structured data mL COMPARISON: CT CT HEAD CERVICAL SPINE WO from 05/27/[address] HEAD FACIAL WO from 10/13/2024 FINDINGS: CT Head W/O & W: Ventricles and Extra axial spaces: Normal in size and morphology for the patient's age. Hemorrhage: None. Cerebral parenchyma: Normal. Midline shift: None. Brainstem/Cerebellum: Normal. Calvarium: Normal. Visualized Paranasal sinuses/Mastoids: There is an air-fluid level in the right maxillary sinus which is larger when compared with the previous exam. There is some mucosal thickening as well. There is mild mucosal thickening in several ethmoid sinuses. There is a balloon type device in the right nasal cavity. Nasal septum is again deviated toward the left. There is a fracture of the upper nasal septum which appears unchanged. There is no evidence of active contrast extravasation. No abnormal enhancement or vascular malformation. Within the nasal cavity. Soft Tissues: Unremarkable. Enhancement: No abnormal enhancing lesions. CTA Brain W: Internal Carotid Arteries: Petrous: Normal. Cavernous: Normal. Cerebral: Normal. Middle Cerebral Arteries: Right: No aneurysm, occlusion or significant stenosis. Left: No aneurysm, occlusion or significant stenosis. Anterior Cerebral Arteries: Right: No aneurysm, occlusion or significant stenosis. Left: No aneurysm, occlusion or significant stenosis. Posterior cerebral Arteries: Right: No aneurysm, occlusion or significant stenosis. Left: No aneurysm, occlusion or significant stenosis. Vertebral Arteries: Right: No aneurysm, occlusion or significant stenosis. Left: No aneurysm, occlusion or significant stenosis. Basilar Artery: No aneurysm, occlusion or significant stenosis. IMPRESSION: 1. Normal CTA examination of the [place]. 2. Unremarkable CT Head. 3. No evidence of active contrast extravasation or vascular malformation in the nasal cavity. Balloon type device remains present within the right nasal cavity. Nasal septal fracture which appears unchanged. RADIATION DOSE DELIVERED: 2,523.78mGy.cm Total DLP 2,523.78mGy.cm Total DLP DATA REPOSITORY: All CT scans at this facility are submitted to the National Radiology Data Registry (NRDR) Dose Index Registry (DIR) with the [employer] (ACR). RADIATION OPTIMIZATION: All CT scans at this facility use at least one of these dose optimization techniques: automated exposure control; mA and/or kV adjustment per patient size (includes targeted exams where dose is matched to clinical indication); or iterative reconstruction. Related Data Home Medications ?Medication ?Instructions ?Recorded ?Confirmed psyllium husk 3.4 gram/5.4 gram 1 tbsp PO DAILY 10/19/24 oral powder (Metamucil) brinzolamide 1 %-brimonidine 0.2 % 1 drp ophthalmic (e ye) BID 09/21/22 10/19/24 eye drops,suspension (Simbrinza) sucralfate 1 gram tablet (Carafate) 1 g PO QHS #90 tab s 10/10/23 10/19/24 fluorouracil 5 % topical cream 1 applic topical BID 10/19/24 valsartan 160 mg tablet 160 mg PO DAILY #90 tabs 05/0510/19/24 apixaban 5 mg tablet (Eliquis) 5 mg PO BID #180 tabs 0 06/01/24 10/19/24 atorvastatin 20 mg tablet 20 mg PO DAILY #90 tabs 06/1210/19/24 pantoprazole 40 mg tablet,delayed 40 mg PO QAM #30 tab s 07/07/24 10/19/24 release (Protonix) metoprolol succinate 50 mg 50 mg PO DAILY #90 tabs 08/0510/19/24 tablet,extended release 24 hr trazodone 50 mg tablet 50 mg PO QHS PRN sleep #90 t abs 10/07/24 10/19/24 torsemide 20 mg tablet 20 mg PO DAILY #90 tabs 09/1210/19/24 tramadol 50 mg tablet 50 mg PO BID PRN pain #90 ta bs 10/15/24 10/19/24 Previous Rx's ?Medication ?Instructions ?Recorded sucralfate 1 gram tablet (Carafate) 1 g PO QHS #90 tab s 10/10/23 valsartan 160 mg tablet 160 mg PO DAILY #90 tabs 05/05 apixaban 5 mg tablet (Eliquis) 5 mg PO BID #180 tabs 0 06/01/24 atorvastatin 20 mg tablet 20 mg PO DAILY #90 tabs 06/12 09/04 pantoprazole 40 mg tablet,delayed 40 mg PO QAM #30 tab s 07/07/24 release (Protonix) metoprolol succinate 50 mg 50 mg PO DAILY #90 tabs 08/05 tablet,extended release 24 hr trazodone 50 mg tablet 50 mg PO QHS PRN sleep #90 t abs 10/07/24 torsemide 20 mg tablet 20 mg PO DAILY #90 tabs 09/12 10/05 tramadol 50 mg tablet 50 mg PO BID PRN pain #90 ta bs 10/15/24 Allergies Allergy/AdvReac Type Severity Reaction Status Date / Time oxycodone (From Percocet) AdvReac Intermediate Other (See Verified 10/21/24 07:32 Comment) General Stated Complaint: Epistaxis KANDACE: 4 Course Vital Signs Vital signs: Vital Signs Pulse 102 H 10/21/24 07:27 Respiratory Rate 18 10/21/24 07:27 Blood Pressure 168/100 H 10/21/24 07:27 Pulse Oximetry 99 10/21/24 07:27 Pulse 102 H 10/21/24 07:27 Respiratory Rate 18 10/21/24 07:27 Blood Pressure 168/100 H 10/21/24 07:27 Blood Pressure Position Sitting 10/21/24 07:27 Pulse Oximetry 99 10/21/24 07:27 Oxygen Delivery Method Room Air 10/21/24 07:27 Oxygen Flow Rate 0 10/21/24 07:27 Medical Decision Making Quality:SDOH Health Related Social Needs: Health related social needs details none PFSH All Active Problems (Updated 10/21/24 @ 15:23 by Nakul Vidales MD) Right-sided epistaxis (Acute) Contusion of rib on left side (Acute) Epistaxis due to trauma (Acute) Fall as cause of accidental injury at home as place of occurrence (Acute) Epistaxis due to trauma (Acute) Poor balance (Acute) Frequent falls (Acute) Fall as cause of accidental injury at home as place of occurrence (Acute) Lymphedema (Acute) Lumbar spinal stenosis (Acute) Low back pain radiating to left lower extremity (Acute) Chronic wound (Acute) Degenerative joint disease of knee, left (Acute) Barretts esophagus (Acute ~09/2022) Tinnitus, bilateral (Acute) Imbalance (Acute) Hiatal hernia (Chronic) Bile reflux gastritis (Acute) Status post total knee replacement (Acute) 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 Lynn Kidney stone (Acute) Hyperlipidemia (Acute 06/30/12) H/O alcohol abuse (Acute 10/19/13) Diaphragmatic paralysis (Acute) chronic right hemidiaphragm HTN (hypertension) (Chronic) Chronic rhinitis (Acute) Sensorineural hearing loss, bilateral (Acute) Insomnia (Acute) On trazodone as of 01/2021 Atrial fibrillation (Chronic) 12/2020, Chads-vasc 2 -3 Polycythemia (Acute) Obstructive sleep apnea (Chronic) 01/2021-patient did not tolerate facemask-currently not being treated Bilateral lower extremity edema (Acute) Posture abnormality (Acute) Fungal infection (Acute) Rectal bleeding (Acute) Anticoagulant long-term use (Acute) Internal hemorrhoid, bleeding (Acute) Syncope and collapse (Acute) Upper back pain (Acute) Upper back pain on left side (Acute) Thickening of esophagus (Acute) Abdominal fluid collection (Acute) Medical History Swelling of lower extremity Ringing in ears Poor circulation Lumbar spondylosis Lumbar spinal stenosis Leg pain Joint pain Irregular heart beat High cholesterol Clotting disorder Arthritis Urinary tract infection Strangulated umbilical hernia Incarcerated umbilical hernia Surgical History History of esophagogastroduodenoscopy (~09/2022) History of hernia repair History of tonsillectomy and adenoidectomy Replacement of total knee joint RIGHT Hemorrhoidectomy Colonoscopy - MAC 10/31/10;DR. ARJUN LYNN; MIXED TUBULAR AND SESSILE SERRATED ADENOMA Family History Father Personal history of malignant neoplasm COLON FAMILY HISTORY Personal history of malignant neoplasm PROSTATE Brother Heart attack Social History Smoking/Tobacco Use Status: Never Second Hand Exposure: Yes Smoking risk assessment performed?: Yes Alcohol Intake: current Alcohol Intake frequency: 3 or more drinks per day Alcohol type: hard liquor Drug use: Never Substance use type: does not use Caregiver/Support person: Yes Household members: spouse Housing: house Communication Needs: None Do you need help understanding health information?: Always Pets and animals: Yes Pets and animals: cat(s) Sexually active: No Do you think of yourself as: straight/heterosexual Current gender identity: male What is your relationship status?: How often do you talk on the phone with friends or family?: three or more times per week How often do you get together with friends or relatives?: three or more times per week How often do you attend scientology or rastafarian services?: decline to answer Do you belong to any clubs or organized social groups?: no Panel score (0-1 are the most socially isolated patients): 2 What type of physical activity do you participate in: walking Duration: 15-30 minutes/day Frequency: 5-6 times per week Chery/Samaritan: No preference Seatbelt use: sometimes Drive intox 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
[2024-10-21] MEDS: Oxymetazolone 0.05% SPRAY 15 ML BTL NS (08:30)
[2024-10-21 08:43] LABS: Abs Immature Grans 0.03 10^3/uL (0.0-0.06); HCT 49.8 % (40.0-50.0); HGB 16.9 g/dL (13.5-17.5); Immature Grans % 0.5 %; MCH 33.1 pg (27.0-33.0); MCHC 33.9 % (32.0-36.0); MCV 98 fL (80-95); MPV 10.8 fL (8.0-11.0); Platelet Count 202 10^3/uL (130-400); RBC 5.11 10^6/uL (4.36-5.78); RDW 12.6 % (11.8-14.1); RDW-SD 45.1 fL; WBC 6.03 10^3/uL (4.4-10.8)
[2024-10-21] MEDS: Ondansetron 4 MG/2 ML VIAL IVP (08:45)
[2024-10-21 08:54] LABS: Anion Gap 6.6 mmol/L (3-11); BUN 14 mg/dL (7-18); CO2 29.4 mmol/L (21.0-32.0); Calcium 9.7 mg/dL (8.5-10.1); Chloride 104 mmol/L (98-107); Estimated GFR 75.61 (mL/min/1.73m2); Glucose 136 mg/dL (74-106); Potassium 4.0 mmol/L (3.5-5.1); Sodium 140 mmol/L (136-145)
[2024-10-21] MEDS: Tranexamic Acid 1,000 MG/10 ML VIAL 1000 MG IVP (09:18)
[2024-10-21] MEDS: MORPHine 10 MG/ML VIAL 6 MG IVP (09:19)
[2024-10-21] MEDS: Omnipaque 350 MG/ML 100 ML BTL IJ (10:02)
[2024-10-21] MEDS: Normal Saline - Diluent 50 ML VIAL IJ (10:02)
[2024-10-21] MEDS: Normal Saline Flush 10 ML SYR IVP (10:02)
--- NOTE | 2024-10-21 10:04 | DI.CT_ITS ---
Exam(s) CT BRAIN CTA EXAM: CT BRAIN CTA CLINICAL HISTORY: s/p rhino rocket, worsening eye pain. TECHNIQUE: Imaging Protocol: Axial CT angiography was performed with multi- slice acquisition and multi-planar and/or 3D reconstructions. CONTRAST MATERIAL: Intravenous: Omnipaque 350 Contrast volume:structured data mL COMPARISON: CT CT HEAD CERVICAL SPINE WO from 05/27/[address] HEAD FACIAL WO from 10/13/2024 FINDINGS: Ventricles and Extra axial spaces: Normal in size and morphology for the patient's age. Hemorrhage: None. Cerebral parenchyma: Normal. Midline shift: None. Brainstem/Cerebellum: Normal. Calvarium: Normal. Visualized Paranasal sinuses/Mastoids: There is an air-fluid level in the right maxillary sinus which is larger when compared with the previous exam. There is some mucosal thickening as well. There is mild mucosal thickening in several ethmoid sinuses. There is a balloon type device in the right nasal cavity. Nasal septum is again deviated toward the left. There is a fracture of the upper nasal septum which appears unchanged. There is no evidence of active contrast extravasation. No abnormal enhancement or vascular malformation. Within the nasal cavity. Soft Tissues: Unremarkable. Enhancement: No abnormal enhancing lesions. CTA Brain W: Internal Carotid Arteries: Petrous: Normal. Cavernous: Normal. Cerebral: Normal. Middle Cerebral Arteries: Right: No aneurysm, occlusion or significant stenosis. Left: No aneurysm, occlusion or significant stenosis. Anterior Cerebral Arteries: Right: No aneurysm, occlusion or significant stenosis. Left: No aneurysm, occlusion or significant stenosis. Posterior cerebral Arteries: Right: No aneurysm, occlusion or significant stenosis. Left: No aneurysm, occlusion or significant stenosis. Vertebral Arteries: Right: No aneurysm, occlusion or significant stenosis. Left: No aneurysm, occlusion or significant stenosis. Basilar Artery: No aneurysm, occlusion or significant stenosis. IMPRESSION: 1. Normal CTA examination of the [place]. 2. Unremarkable CT Head. 3. No evidence of active contrast extravasation or vascular malformation in the nasal cavity. Balloon type device remains present within the right nasal cavity. Nasal septal fracture which appears unchanged. RADIATION DOSE DELIVERED: 2,523.78mGy.cm Total DLP 2,523.78mGy.cm Total DLP DATA REPOSITORY: All CT scans at this facility are submitted to the National Radiology Data Registry (NRDR) Dose Index Registry (DIR) with the [employer] (ACR). RADIATION OPTIMIZATION: All CT scans at this facility use at least one of these dose optimization techniques: automated exposure control; mA and/or kV adjustment per patient size (includes targeted exams where dose is matched to clinical indication); or iterative reconstruction.
== END 2024-10-21 10:53 | disposition home or self-care (01) ==
PROVIDERS: Emergency Provider General Practice; PCP Nurse Practitioner Family
DX: R04.0 Epistaxis (principal); Z79.01 Long term (current) use of anticoagulants
CPT/HCPCS: 70496; 80048; 86850; 86900; 86901; 96374; 96375; 99281; 99285; 85025; 99282; 99283; J2270; J2405; J3490

== ENCOUNTER 2024-10-21 15:03 | Emergency (ER) | payer MEDICARE, BC, SELFPAY ==
[2024-10-21 15:04] VITALS: BP 165/98; PULSE 100; RESP 16; O2SAT 95
--- NOTE | 2024-10-22 13:03 | ED.GENADUL_ITS ---
Discharge Plan Disposition Patient Disposition: Home Discharge Details Clinical Impression: Right-sided epistaxis, Epistaxis due to trauma Primary Care Provider: Eduardo Hebert ED Provider: Nakul Vidales Home Meds and New Rx's Prescriptions: Continued fluorouracil 5 % cream 1 applic topical BID tramadol 50 mg tablet 50 mg PO BID PRN (Reason: pain) Qty: 90 0RF Rx Instructions: May take 2 tablets if needed. Metamucil 3.4 gram/5.4 gram powder 1 tbsp PO DAILY Rx Instructions: mix into at least 8 oz of water or juice before administering torsemide 20 mg tablet 20 mg PO DAILY Qty: 90 3RF Rx Instructions: May take 2 tabs if needed. sucralfate [Carafate] 1 gram tablet 1 g PO QHS Qty: 90 3RF Rx Instructions: take at bedtime valsartan 160 mg tablet 160 mg PO DAILY Qty: 90 3RF Eliquis 5 mg tablet 5 mg PO BID Qty: 180 3RF atorvastatin 20 mg tablet 20 mg PO DAILY Qty: 90 3RF pantoprazole [Protonix] 40 mg tablet,delayed release (DR/EC) 40 mg PO QAM Qty: 30 12RF metoprolol succinate 50 mg tablet extended release 24 hr 50 mg PO DAILY Qty: 90 3RF trazodone 50 mg tablet 50 mg PO QHS PRN (Reason: sleep) Qty: 90 3RF Simbrinza 1-0.2 % drops,suspension 1 drp ophthalmic (eye) BID Patient Comments: INSTILL 1 DROP INTO BOTH EYES TWO TIMES A DAY DIRECTED Discharge Instructions Instructions: Nosebleeds ED Additional Instructions: Please follow-up with your primary care provider regarding your visit to the emergency department today. Be sure to discuss results of all test performed here today to include radiology, and laboratory testing as well as results for any pending cultures. Should your symptoms worsen, or if you develop new concerning symptoms, please return immediately emergency department for further evaluation. Discharge Data Discharge Date/Time-TO BE ENTERED AT DEPARTURE: 10/21/24 15:39 HPI General Date/Time Provider Initiated Documentation: 10/21/24 15:22 . HPI Narrative: MDM/Narrative: Initial Assessment: 79-year-old male presents for minimal blood oozing status post right-sided anterior nasal packing placement this morning. ED Course: - Reinflated Rhino rocket with approximately 5 mL of air - Observed for 15 minutes - No significant changes in pain - No ongoing bleeding Final Assessment: Reinflated Rhino rocket with 5 mL of air and observed for 15 minutes. No significant changes in pain or ongoing bleeding. Clinical Impression: - Epistaxis Disposition: - Discharge: Home, follow up with ENT in mid, nasal packing removed in 72 hours, hold apixaban for 72 hours Follow-Up: Follow up with ENT in This document was created with assistance from [employer] Super[employer]. The patient consented to its use. HPI: The patient is an 79-year-old male who was seen several hours ago for management of epistaxis and had a right-sided Rhino rocket anterior packing placed. He notes that following discharge, he returned home and approximately 2 to 3 hours after returning home, developed mild leaking of blood from around the Rhino rocket. He presents for further management. He reports no other symptoms or any other bleeding. ROS: Negative besides as mentioned above Exam: Gen: A&O NAD HEENT: NCAT, EOMI, not icteric. External ears normal. No rhinorrhea. Moist mucous membranes.Minimal active blood oozing from around the Rhino rocket in the right nare. No active posterior bleeding identified in the hypopharynx. Neck: Supple, full range of motion, no observable masses, No meningeal sign. Lungs: No Respiratory distress. CV: RRR, no edema. Abdomen: Soft, nondistended, No rebound tenderness. MSK: No joint swelling, no redness. Skin: No rashes, petechiae, lesions. Normal color per patient. Neuro: Normal Gait, Grossly intact. Psych: Appropriate for situation. Related Data Home Medications ?Medication ?Instructions ?Recorded ?Confirmed psyllium husk 3.4 gram/5.4 gram 1 tbsp PO DAILY 10/19/24 oral powder (Metamucil) brinzolamide 1 %-brimonidine 0.2 % 1 drp ophthalmic (e ye) BID 09/21/22 10/19/24 eye drops,suspension (Simbrinza) sucralfate 1 gram tablet (Carafate) 1 g PO QHS #90 tab s 10/10/23 10/19/24 fluorouracil 5 % topical cream 1 applic topical BID 10/19/24 valsartan 160 mg tablet 160 mg PO DAILY #90 tabs 05/0510/19/24 apixaban 5 mg tablet (Eliquis) 5 mg PO BID #180 tabs 0 06/01/24 10/19/24 atorvastatin 20 mg tablet 20 mg PO DAILY #90 tabs 06/1210/19/24 pantoprazole 40 mg tablet,delayed 40 mg PO QAM #30 tab s 07/07/24 10/19/24 release (Protonix) metoprolol succinate 50 mg 50 mg PO DAILY #90 tabs 08/0510/19/24 tablet,extended release 24 hr trazodone 50 mg tablet 50 mg PO QHS PRN sleep #90 t abs 10/07/24 10/19/24 torsemide 20 mg tablet 20 mg PO DAILY #90 tabs 09/1210/19/24 tramadol 50 mg tablet 50 mg PO BID PRN pain #90 ta bs 10/15/24 10/19/24 Previous Rx's ?Medication ?Instructions ?Recorded sucralfate 1 gram tablet (Carafate) 1 g PO QHS #90 tab s 10/10/23 valsartan 160 mg tablet 160 mg PO DAILY #90 tabs 05/05 apixaban 5 mg tablet (Eliquis) 5 mg PO BID #180 tabs 0 06/01/24 atorvastatin 20 mg tablet 20 mg PO DAILY #90 tabs 06/12 09/04 pantoprazole 40 mg tablet,delayed 40 mg PO QAM #30 tab s 07/07/24 release (Protonix) metoprolol succinate 50 mg 50 mg PO DAILY #90 tabs 08/05 tablet,extended release 24 hr trazodone 50 mg tablet 50 mg PO QHS PRN sleep #90 t abs 10/07/24 torsemide 20 mg tablet 20 mg PO DAILY #90 tabs 09/12 10/05 tramadol 50 mg tablet 50 mg PO BID PRN pain #90 ta bs 10/15/24 Allergies Allergy/AdvReac Type Severity Reaction Status Date / Time oxycodone (From Percocet) AdvReac Intermediate Other (See Verified 10/21/24 07:32 Comment) General Stated Complaint: Recheck KANDACE: 4 Course Vital Signs Vital signs: Vital Signs Pulse 100 H 10/21/24 15:04 Respiratory Rate 16 10/21/24 15:04 Blood Pressure 165/98 H 10/21/24 15:04 Pulse Oximetry 95 10/21/24 15:04 Pulse 100 H 10/21/24 15:04 Respiratory Rate 16 10/21/24 15:04 Blood Pressure 165/98 H 10/21/24 15:04 Blood Pressure Position Sitting 10/21/24 15:04 Pulse Oximetry 95 10/21/24 15:04 Oxygen Delivery Method Room Air 10/21/24 15:04 Oxygen Flow Rate 0 10/21/24 15:04 Medical Decision Making Quality:SDOH Health Related Social Needs: Health related social needs details none PFSH All Active Problems (Updated 10/21/24 @ 15:23 by Nakul Vidales MD) Right-sided epistaxis (Acute) Contusion of rib on left side (Acute) Epistaxis due to trauma (Acute) Fall as cause of accidental injury at home as place of occurrence (Acute) Epistaxis due to trauma (Acute) Poor balance (Acute) Frequent falls (Acute) Fall as cause of accidental injury at home as place of occurrence (Acute) Lymphedema (Acute) Lumbar spinal stenosis (Acute) Low back pain radiating to left lower extremity (Acute) Chronic wound (Acute) Degenerative joint disease of knee, left (Acute) Barretts esophagus (Acute ~09/2022) Tinnitus, bilateral (Acute) Imbalance (Acute) Hiatal hernia (Chronic) Bile reflux gastritis (Acute) Status post total knee replacement (Acute) 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 Lynn Kidney stone (Acute) Hyperlipidemia (Acute 06/30/12) H/O alcohol abuse (Acute 10/19/13) Diaphragmatic paralysis (Acute) chronic right hemidiaphragm HTN (hypertension) (Chronic) Chronic rhinitis (Acute) Sensorineural hearing loss, bilateral (Acute) Insomnia (Acute) On trazodone as of 01/2021 Atrial fibrillation (Chronic) 12/2020, Chads-vasc 2 -3 Polycythemia (Acute) Obstructive sleep apnea (Chronic) 01/2021-patient did not tolerate facemask-currently not being treated Bilateral lower extremity edema (Acute) Posture abnormality (Acute) Fungal infection (Acute) Rectal bleeding (Acute) Anticoagulant long-term use (Acute) Internal hemorrhoid, bleeding (Acute) Syncope and collapse (Acute) Upper back pain (Acute) Upper back pain on left side (Acute) Thickening of esophagus (Acute) Abdominal fluid collection (Acute) Medical History Swelling of lower extremity Ringing in ears Poor circulation Lumbar spondylosis Lumbar spinal stenosis Leg pain Joint pain Irregular heart beat High cholesterol Clotting disorder Arthritis Urinary tract infection Strangulated umbilical hernia Incarcerated umbilical hernia Surgical History History of esophagogastroduodenoscopy (~09/2022) History of hernia repair History of tonsillectomy and adenoidectomy Replacement of total knee joint RIGHT Hemorrhoidectomy Colonoscopy - MAC 10/31/10;DR. ARJUN LYNN; MIXED TUBULAR AND SESSILE SERRATED ADENOMA Family History Father Personal history of malignant neoplasm COLON FAMILY HISTORY Personal history of malignant neoplasm PROSTATE Brother Heart attack Social History Smoking/Tobacco Use Status: Never Second Hand Exposure: Yes Smoking risk assessment performed?: Yes Alcohol Intake: current Alcohol Intake frequency: 3 or more drinks per day Alcohol type: hard liquor Drug use: Never Substance use type: does not use Caregiver/Support person: Yes Household members: spouse Housing: house Communication Needs: None Do you need help understanding health information?: Always Pets and animals: Yes Pets and animals: cat(s) Sexually active: No Do you think of yourself as: straight/heterosexual Current gender identity: male What is your relationship status?: How often do you talk on the phone with friends or family?: three or more times per week How often do you get together with friends or relatives?: three or more times per week How often do you attend faith or confucianism services?: decline to answer Do you belong to any clubs or organized social groups?: no Panel score (0-1 are the most socially isolated patients): 2 What type of physical activity do you participate in: walking Duration: 15-30 minutes/day Frequency: 5-6 times per week Chery/Tenriism: No preference Seatbelt use: sometimes Drive intox 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
== END 2024-10-21 15:39 | disposition home or self-care (01) ==
LOC: ER 15:33
PROVIDERS: Emergency Provider General Practice; PCP Nurse Practitioner Family
DX: R04.0 Epistaxis (principal)
CPT/HCPCS: 99282; 99281

== ENCOUNTER 2024-10-28 10:37 | Outpatient (CLI) | payer BC, MEDICARE, SELFPAY ==
--- NOTE | 2024-10-28 06:00 | DI.RAD_ITS ---
Exam(s) XR PAIN CLINIC LUMBAR SP 2V EXAM: XR PAIN CLINIC LUMBAR SP 2V CLINICAL HISTORY: Dx: Lumbar Radiculopathy TECHNIQUE: 2D and realtime digital imaging was performed. CONTRAST MATERIAL: Refer to procedure report. COMPARISON: No exams were available for comparison FINDINGS: Fluoroscopy was provided for Dr. Becerril during the performance of a lumbar epidural steroid injection. Please refer to the procedure report for complete details. Ka,r=8.53 mGy IMPRESSION: RADIATION DOSE DELIVERED: 0.0 0.0 0
[2024-10-28 11:00] VITALS: BP 96/69; PULSE 78; RESP 18; TEMP 36.6; O2SAT 98
[2024-10-28 11:23] VITALS: BP 150/100; PULSE 102; PULSE 98; RESP 37; O2SAT 97
[2024-10-28 11:24] VITALS: PULSE 104; PULSE 106; RESP 23; O2SAT 97
[2024-10-28 11:30] VITALS: BP 144/105; PULSE 109; PULSE 97; RESP 13; O2SAT 97
[2024-10-28 11:31] VITALS: PULSE 102; PULSE 106; RESP 16; O2SAT 97
[2024-10-28] MEDS: Omnipaque 240 MG/ML 50 ML BTL IJ (11:40)
[2024-10-28] MEDS: Epidural Tray 1 EACH MC (11:40)
[2024-10-28] MEDS: methylPREDNISolone ACETATE 80 MG/ML VIAL IJ (11:41)
--- NOTE | 2024-11-01 16:04 | PDOC.PAIN ---
Date of service: 10/28/24 Time of Service: 11:11 Pain Managment Procedure Note Procedure Note Procedure Note: PROCEDURE NOTE LUMBAR EPIDURAL STEROID INJECTION Date of Service: October 28, 2024 Patient:Chaka Davis? Provider: Saturnino Becerril DO, MPH Chaka Swartz has been referred to the [facility] for a lumbar epidural steroid injection. Pre-operative diagnosis: Lumbosacral Radiculopathy ICD-10 M54.16 Post-operative diagnosis: Same Pre-Procedure Pain: VAS= 8 /10 Comments: I previously evaluated him in the office. His symptoms have not changed. He has held his Eliquis per his provider. Chaka was interviewed and the medical record was reviewed.? There were no medical, pharmacologic, radiographic or other structural contraindications to attempting fluoroscopically guided Lumbar epidural steroid injection.? Risks, potential side effects, indications, and potential benefits of the procedure were reviewed with Chaka.? Questions and concerns were addressed.? After it was clear that Chaka was fully informed about the procedure, the printed consent form was signed by the patient and myself.? Chaka was placed in the prone position on the fluoroscopy table and automated blood pressure cuff and pulse oximeter applied. The skin entry point for entering/approaching the epidural space for the lumbar epidural steroid injection was marked. Following thorough chlorhexadine preparation of the skin and draping and 1% lidocaine infiltration of the skin entry point and subcutaneous tissues, an 18 gauge Touhy needle was placed and advanced under fluoroscopic guidance and with loss of resistance technique into the L5-S1 epidural space. Needle tip placement and depth were aided and confirmed by fluoroscopy. There was no paresthesia or return of blood or CSF through the needle. 1 mls of Omnipaque 240 was injected with clear epidural spread confirmed with fluoroscopy. 80 mg of Depo-Medrol was? injected. This was followed by 1 ml of preservative-free normal saline to flush the steroid out of the needle. There was no unusual discomfort expressed by Chaka. The needle was withdrawn without difficulty. (49 mls of Omnipaque was wasted) Chaka was observed and was without hemodynamic, neurologic, or allergic reactions.? Fluoroscopic images were digitally archived. Chaka's vital signs were stable throughout the procedure and were as recorded in nursing records. Follow up plans and appointments were discussed with Chaka. Post procedure instruction was given as documented in nursing records and having met discharge criteria Chaka was discharged from the [facility]. COMMENTS: No apparent complications. Post-procedure pain: VAS= 6/10. Chaka to contact [facility] as needed. If at least 50% improvement in pain and/or function for at least 3 months is achieved, this procedure can be repeated. I personally performed this entire procedure. SATURNINO BECERRIL DO, MPH ABPMR-subspecialty board certification in Pain Medicine [facility] Coding Conscious Sedation used for procedure: No CPT Codes: Inj Spine L/S w/Imaging - [id number] ([id number] ~G) Additional Codes: Date of Service (98459) Date of service: 10/28/24 Diagnoses: Lumbosacral radiculopathy
== END 2024-10-28 10:38 | disposition home or self-care (01) ==
LOC: PC 10:37
PROVIDERS: PCP Nurse Practitioner Family; Visit Provider Preventive Medicine Occupational Medicine
DX: M54.16 Radiculopathy, lumbar region (principal)
CPT/HCPCS: 62323; 72100; J1010; Q9967